=== PATIENT | female | born 1985 | race Caucasian/White ===

== ENCOUNTER 2020-03-11 17:27 | Inpatient (IN) ==
--- NOTE | 2020-03-11 17:45 | Emergency Department Note ---
Impression & Plan Abdominal pain, Enteritis, Hypophosphatemia ED Provider Note NAME: TIERA COLLINS AGE: 34 SEX: F : 1985 ARRIVES VIA: Walk-In INFORMANT: Patient, ED PROVIDER(S): Cleve De La Paz MD Chief Complaint: Diarrhea, abdominal pain HPI: Patient does present with the above complaints. The patient has had a his tory of PSC, UC as well as autoimmune spondyloarthritis. The patient recently did have an admission at [facility] due to concern for her persistent abdominal pain. The patient reportedly did have an MRCP completed and that was ruled out to be negative for PSC at that time. Patient did recently see her outpatient GI physician who started the patient on hyoscyamine as well as Bentyl. The patient states that this improved with a crampy pain but it does not improved her sharp pain. The patient does have sharp pain around the umbilicus as well as the left and right lower quadrants. The patient denies any urinary symptoms but the patient has had persistent large diarrhea bowel movements in the morning which do not continue but then the patient gets worsening pain in the evening throughout the night where it does disrupt her sleep. Patient has not tried taking any additional medication at nighttime. The patient has has had some mild nausea but no vomiting. LMP 4 weeks ago does have a NuvaRing. Patient denies any fevers or chills or shortness of breath or chest pains. ROS: See HPI for pertinent positives and negatives. A total of 10 systems were reviewed and otherwise negative. Past medical history: See below Surgical history: See below Social history: See below Physical Exam: GENERAL: Wearing a mask. NAD, non-toxic. EYE EXAM: Normal conjunctiva. PERRL, no anisocoria and EOM's grossly intact w/o pain. NECK: Supple, no nuchal rigidity, no adenopathy, non-tender. No signs of meningismus. LUNGS: Clear to auscultation. Normal chest wall mechanics. HEART: Tachycardic and regular, no MRG. ABDOMEN: Abdomen soft, epigastric, periumbilical right lower quadrant left lower quadrant pain, normo-active bowel sounds, no masses, no rebound or guarding. Negative obturator and psoas. BACK: No CVA TTP. SKIN: No rashes and no bruising. UPPER EXTREMITIES: Upper extremities are grossly normal. LOWER EXTREMITIES: Grossly normal, no edema. NEURO EXAM: A&O x3, cranial nerves II-XII grossly intact, normal speech, moves all 4 extremities on command w/o issue. Differential diagnoses: Appendicitis, ovarian cyst, ovarian torsion, ectopic , TOA, PID, infections, diverticulitis, UTI, obstruction, mesenteric ischemia, aortic pathology, inflammatory bowel disease, renal colic, PUD, pancreatitis, biliary pathology, hernia, volvulus, constipation, as well as other pathologies. Course: Patient was seen and evaluated the bedside. Full history physical exam was p erformed. EKG: Indication: Tachycardia Imaging Studies: Radiology results as stated below per my review in the radiologist's interpretation: CT abd pelvis IV con only CLINICAL HISTORY: Right lower quadrant and periumbilical pain. COMPARISON STUDY: None. TECHNIQUE: The patient was scanned in a dynamic helical fashion during intravenous administration of 93 cc of Optiray 320. A dose lowering technique was utilized adhering to the principles of ALARA. CT DOSE: 283.16 mGy.cm FINDINGS: Lower chest: There are mild basilar atelectatic changes. Liver: No focal hepatic masses are visualized. There is pneumobilia likely secondary to prior sphincterotomy. Gallbladder: Surgically absent Spleen: Normal in size and attenuation. Pancreas: Unremarkable. Adrenal glands: Unremarkable. Kidneys: There is symmetric renal cortical enhancement. The kidneys are normal in size without hydronephrosis. Bowel: There are mildly dilated small bowel loops demonstrating mild wall thickening. There are no definite transition zones. The findings are consistent with either an enteritis or early/partial small bowel obstruction. There are no current findings of a high-grade bowel obstruction. There is no evidence for acute diverticulitis. There is no evidence of acute appendicitis. Peritoneum: There is a small amount of free pelvic fluid. There is no free intraperitoneal air. Vasculature: The abdominal aorta is normal in course and caliber. Adenopathy: None. Pelvic viscera: The bladder, and pelvic viscera are unremarkable. There is an indwelling vaginal ring. Skeletal structures: There is a 15 mm sclerotic lesion within the left posterior acetabulum likely representing a bone island. There are additional scattered sclerotic skeletal lesions statistically representing additional bone islands. IMPRESSION: 1. Mildly dilated fluid-filled small bowel loops demonstrating wall thickening. A definite transition zone is not identified. The findings are consistent with either an enteritis or early/partial small bowel obstruction. Clinical and imaging follow-up is recommended. There is no current evidence of a high-grade bowel obstruction. 2. No evidence of acute appendicitis. No evidence of acute diverticulitis. 3. Scattered sclerotic skeletal lesions. In the absence of a known malignancies these likely represent bone islands. 4. Surgically absent gallbladder and pneumobilia ACT 112: Negative or not required by law. Electronically signed by: Missael Remy M.D. 03/11/2020 8:21 PM Dictated: 03/11/202015 Transcribed: 03/11/202015 Cardiac monitoring: An order was placed for continuous cardiac monitoring. The monitor shows a rate of 115 with sinus tachycardia rhythm. MDM: Patient CT shows some mildly dilated fluid-filled small loops of bowel no transition zone. Could be enteritis versus early SBO. Patient had mild white count of 14 but the patient is on chronic steroids. The patient's kidney function is unremarkable. Alk phos slightly elevated at 205. Phosphorus slightly low. Urinalysis positive bacteria and epithelial cells but negative for nitrites leukocytes and whites. Paresthesias negative. Given the patient's possible early SBO with her prior history believe the patient would benefit from pain control bowel rest and IV fluids. I did speak with the on-call hospitalist Dr. Acharya and the patient was admitted the medicine service. Patient is not had any vomiting. No obvious bowel obstruction do not believe the patient requires an NG tube at this time. Patient does present with concern for abdominal pain. Blood work was obtained the patient was given IV fluids and pain medication. Urinalysis was also obtained along with a CT of the abdomen pelvis. Past Med/Surg History Medical History Autoimmune disorder (Chronic) Primary sclerosing cholangitis Secondary Sjogren's syndrome Spondyloarthritis Thyroid cancer (Resolved) Ulcerative colitis Family History Other Family history non-contributory Social History Smoking Status: Never smoker Preferred Language: Afghan Feels Safe at Home: Yes Allergies Allergies Allergy/AdvReac Type Severity Reaction Status Date / Time acetaminophen Allergy Severe INTOLERANCE Verified 03/11/20 21:42 TO APAP amoxicillin Allergy Severe VOMIT Verified 03/11/20 21:42 doxycycline Allergy Severe DIARRHEA,UT Verified 03/11/20 21:42 I,VOMIT edetic acid Allergy Severe HEADACHES Verified 03/11/20 21:42 hydromorphone Allergy Severe MUSCLE Verified 03/11/20 21:42 SHAKE ibuprofen Allergy Severe Intolerance Verified 03/11/20 21:42 to NSAIDS rifaximin Allergy Severe HEADACHES Verified 03/11/20 21:42 Sulfa (Sulfonamide Allergy Severe SKIN BURN Verified 03/11/20 21:42 Antibiotics) risedronate sodium AdvReac Severe SHAKY/FEVER Verified 03/11/20 21:42 /VOMITING azithromycin AdvReac DIARRHEA, Verified 03/11/20 21:42 LIVER PAIN, HEADACHE leflunomide AdvReac VASCULITIS Verified 03/11/20 21:42 mesalamine [From Lialda] AdvReac MUSCLE Verified 03/11/20 21:42 SHAKES methotrexate AdvReac Vomiting Verified 03/11/20 21:42 mycophenolate mofetil AdvReac Watery Eye Verified 03/11/20 21:42 [From CellCept] ondansetron [From Zofran] AdvReac Headache Verified 03/11/20 21:42 FLOURORESIN AdvReac SKIN Uncoded 03/11/20 21:42 AROUND EYES CRACK HONEY COUGH SURUP AdvReac Joint Pain Uncoded 03/11/20 21:42 Home Meds Home Medications Medication Instructions Recorded Confirmed etonogestrel-ethinyl estradiol 1 ea VAGINAL DIRECTED 08/22/18 03/11/20 [NuvaRing] calcium carbonate [Calcium 500] 500 mg PO HS 10/23/19 03/11/20 celecoxib [Celebrex] 100 - 200 mg PO BID 10/23/19 03/11/20 fluoxetine [Prozac] 20 mg PO QAM 10/23/19 03/11/20 levothyroxine [Tirosint] 150 mcg PO QAM 10/23/19 03/11/20 omeprazole 20 mg PO QAM 10/23/19 03/11/20 cholecalciferol (vitamin D3) 3,000 unit PO DAILY 03/11/20 03/11/20 [Vitamin D3] dicyclomine 10 mg PO QID 03/11/20 03/11/20 ergocalciferol (vitamin D2) 50,000 unit PO .[id number] 03/11/20 03/11/20 [Vitamin D2] mesalamine [Apriso] 0.375 g PO QAM 03/11/20 03/11/20 prednisone 20 mg PO QAM 03/11/20 03/11/20 Results & Data (ED) Vital Signs Vital Signs - 24 hr 03/11/20 17:29 03/11/20 18:20 03/11/20 18:26 Temperature 37.3 C Temperature Source Oral Pulse Rate 122 H 92 H 94 H Pulse Rate [Apical] Pulse Rate from SpO2 Sensor 92 H 94 H Respiratory Rate 18 23 20 Respiratory Effort / Characteristics Respiratory Depth Blood Pressure 118/79 108/74 Blood Pressure [Right Arm] Blood Pressure Mean 92 87 Blood Pressure Mean [Right Arm] Pulse Oximetry 96 96 97 Oxygen Delivery Method Room Air Sepsis Recent Fever Within 48 Hours No Sepsis New/Unexplained Change in Mental Status No Sepsis Action Taken by Nursing No Action Required 03/11/20 18:30 03/11/20 19:00 03/11/20 19:30 Temperature Temperature Source Pulse Rate 93 H 89 87 Pulse Rate [Apical] Pulse Rate from SpO2 Sensor 93 H 90 Respiratory Rate 23 21 21 Respiratory Effort / Characteristics Respiratory Depth Blood Pressure 113/73 105/72 104/80 Blood Pressure [Right Arm] Blood Pressure Mean 91 78 84 Blood Pressure Mean [Right Arm] Pulse Oximetry 97 98 Oxygen Delivery Method Sepsis Recent Fever Within 48 Hours Sepsis New/Unexplained Change in Mental Status Sepsis Action Taken by Nursing 03/11/20 20:00 03/11/20 20:30 03/11/20 20:32 Temperature Temperature Source Pulse Rate 92 H 85 82 Pulse Rate [Apical] 86 Pulse Rate from SpO2 Sensor 91 H 84 82 Respiratory Rate 20 21 20 Respiratory Effort / Characteristics Non-Labored Respiratory Depth Normal Blood Pressure 117/73 103/78 Blood Pressure [Right Arm] 117/73 Blood Pressure Mean 82 81 Blood Pressure Mean [Right Arm] 87 Pulse Oximetry 100 98 97 Oxygen Delivery Method Room Air Sepsis Recent Fever Within 48 Hours Sepsis New/Unexplained Change in Mental Status Sepsis Action Taken by Nursing 03/11/20 21:01 03/11/20 21:03 03/11/20 21:31 Temperature Temperature Source Pulse Rate 84 89 88 Pulse Rate [Apical] Pulse Rate from SpO2 Sensor 83 89 Respiratory Rate 18 16 24 Respiratory Effort / Characteristics Respiratory Depth Blood Pressure 117/81 Blood Pressure [Right Arm] Blood Pressure Mean 84 Blood Pressure Mean [Right Arm] Pulse Oximetry 97 99 Oxygen Delivery Method Sepsis Recent Fever Within 48 Hours Sepsis New/Unexplained Change in Mental Status Sepsis Action Taken by Nursing 03/11/20 21:32 03/11/20 21:59 03/11/20 23:17 Temperature Temperature Source Pulse Rate 95 H Pulse Rate [Apical] 88 Pulse Rate from SpO2 Sensor Respiratory Rate 20 18 Respiratory Effort / Characteristics Respiratory Depth Blood Pressure Blood Pressure [Right Arm] 105/71 105/80 Blood Pressure Mean Blood Pressure Mean [Right Arm] 82 88 Pulse Oximetry 98 Oxygen Delivery Method Room Air Sepsis Recent Fever Within 48 Hours Sepsis New/Unexplained Change in Mental Status Sepsis Action Taken by Snf Medications Current Medication List: was personally reviewed by me Laboratory Data Attestation: I reviewed the patient's lab results. Result diagrams: 03/11/20 18:03 03/11/20 18:03 Lab Results 03/11/20 03/11/20 03/11/20 Range/Units 18:03 18:03 18:03 WBC 14.86 H (4.8-10.8) K/uL RBC 4.26 (4.2-5.4) M/uL Hgb 12.9 (12.0-16.0) g/dL Hct 37.7 (37-47) % MCV 88.5 (80-100) fL MCH 30.3 (25-34) pg MCHC 34.2 (32-36) g/dL RDW Std Deviation 39.9 (36.4-46.3) fL RDW Coeff of Chaim 12.4 (11.5-14.5) % Plt Count 399 (130-400) K/uL MPV 9.1 (7.4-10.4) fL Immature Gran % (Auto) 0.4 % Neut % (Auto) 92.3 % Lymph % (Auto) 5.5 % Aiken % (Auto) 1.6 % Eos % (Auto) 0.1 % Baso % (Auto) 0.1 % Neut # (Auto) 13.72 H (1.4-6.5) K/uL Lymph # (Auto) 0.82 L (1.2-3.4) K/uL Aiken # (Auto) 0.24 (0.11-0.59) K/uL Eos # (Auto) 0.01 (0-0.5) K/uL Baso # (Auto) 0.01 (0-0.2) K/uL Immature Gran # (Auto) 0.06 H (0.00-0.02) K/uL Sodium 137 (136-145) mmol/L Potassium 3.9 (3.5-5.1) mmol/L Chloride 108 H (98-107) mmol/L Carbon Dioxide 21 (21-32) mmol/L Anion Gap 8.0 (3-11) BUN 8 (7-18) mg/dl Creatinine 1.11 (0.6-1.2) mg/dl Est Cr Clr Drug Dosing 66.5 ml/min Est GFR ( Amer) 74.0 Est GFR (Non-Af Amer) 63.8 BUN/Creatinine Ratio 7.6 L (10-20) Glucose 151 H (70-99) mg/dl Calcium 9.0 (8.5-10.1) mg/dl Phosphorus 2.3 L (2.5-4.9) mg/dl Magnesium 1.9 (1.8-2.4) mg/dl Total Bilirubin 0.3 (0.2-1) mg/dl AST 15 (15-37) U/L ALT 34 (12-78) U/L Alkaline Phosphatase 205 H (45-117) U/L Total Protein 7.2 (6.4-8.2) gm/dl Albumin 2.9 L (3.4-5.0) gm/dl Globulin 4.3 H (2.5-4.0) gm/dl Albumin/Globulin Ratio 0.7 L (0.9-2) Lipase 122 (73-393) U/L Urine Color Yellow Urine Appearance Clear (Clear) Urine pH 7.0 (4.5-7.5) Ur Specific [place] 1.004 (1.000-1.030) Urine Protein Negative (Negative) Urine Glucose (UA) Negative (Negative) Urine Ketones Negative (Negative) Urine Blood 1+ H (Negative) Urine Nitrite Negative (Negative) Urine Bilirubin Negative (Negative) Urine Urobilinogen Negative (Negative) Ur Leukocyte Esterase Negative (Negative) Urine WBC (Auto) 1-5 (0-5) /hpf Urine RBC (Auto) 5-10 H (0-4) /hpf U Hyaline Cast (Auto) 0 (0-5) /lpf U Epithel Cells (Auto) 5-10 H (0-5) /lpf Urine Bacteria (Auto) 1+ H (Negative) Urine Test (Negative) 03/11/20 Range/Units 18:03 WBC (4.8-10.8) K/uL RBC (4.2-5.4) M/uL Hgb (12.0-16.0) g/dL Hct (37-47) % MCV (80-100) fL MCH (25-34) pg MCHC (32-36) g/dL RDW Std Deviation (36.4-46.3) fL RDW Coeff of Chaim (11.5-14.5) % Plt Count (130-400) K/uL MPV (7.4-10.4) fL Immature Gran % (Auto) % Neut % (Auto) % Lymph % (Auto) % Aiken % (Auto) % Eos % (Auto) % Baso % (Auto) % Neut # (Auto) (1.4-6.5) K/uL Lymph # (Auto) (1.2-3.4) K/uL Aiken # (Auto) (0.11-0.59) K/uL Eos # (Auto) (0-0.5) K/uL Baso # (Auto) (0-0.2) K/uL Immature Gran # (Auto) (0.00-0.02) K/uL Sodium (136-145) mmol/L Potassium (3.5-5.1) mmol/L Chloride (98-107) mmol/L Carbon Dioxide (21-32) mmol/L Anion Gap (3-11) BUN (7-18) mg/dl Creatinine (0.6-1.2) mg/dl Est Cr Clr Drug Dosing ml/min Est GFR ( Amer) Est GFR (Non-Af Amer) BUN/Creatinine Ratio (10-20) Glucose (70-99) mg/dl Calcium (8.5-10.1) mg/dl Phosphorus (2.5-4.9) mg/dl Magnesium (1.8-2.4) mg/dl Total Bilirubin (0.2-1) mg/dl AST (15-37) U/L ALT (12-78) U/L Alkaline Phosphatase (45-117) U/L Total Protein (6.4-8.2) gm/dl Albumin (3.4-5.0) gm/dl Globulin (2.5-4.0) gm/dl Albumin/Globulin Ratio (0.9-2) Lipase (73-393) U/L Urine Color Urine Appearance (Clear) Urine pH (4.5-7.5) Ur Specific [place] (1.000-1.030) Urine Protein (Negative) Urine Glucose (UA) (Negative) Urine Ketones (Negative) Urine Blood (Negative) Urine Nitrite (Negative) Urine Bilirubin (Negative) Urine Urobilinogen (Negative) Ur Leukocyte Esterase (Negative) Urine WBC (Auto) (0-5) /hpf Urine RBC (Auto) (0-4) /hpf U Hyaline Cast (Auto) (0-5) /lpf U Epithel Cells (Auto) (0-5) /lpf Urine Bacteria (Auto) (Negative) Urine Test Negative (Negative) Administered Medications Sodium Chloride (Nss) 500 mls @ 125 mls/hr IV .Q4H MITRA Stop: 04/10/20 21:14 Last Admin: 03/11/20 21:29 Dose: 125 mls/hr Documented by: [id number] Morphine Sulfate (Morphine Sulfate) 4 mg IV Q1H PRN PRN Reason: pain Stop: 03/25/20 17:54 Last Admin: 03/11/20 22:08 Dose: 4 mg Documented by: [id number] Admin: 03/11/20 19:58 Dose: 4 mg Documented by: [id number] Admin: 03/11/20 18:18 Dose: 4 mg Documented by: [id number] Discontinued Medications Sodium Chloride (Nss 1000ml) 2,000 mls @ 999 mls/hr IV .Q2H1M ONE Stop: 03/11/20 19:55 Last Infusion: 03/11/20 20:25 Dose: 0 mls/hr Documented by: [id number] Admin: 03/11/20 18:18 Dose: 999 mls/hr Documented by: [id number] Ioversol (Optiray 320 100ml) 93 ml IV ONCE ONE Stop: 03/11/20 19:46 Last Admin: 03/11/20 19:46 Dose: 93 ml Documented by: [id number] Discharge Plan Visit Data Chief Complaint: Diarrhea Stated Complaint: DIARRHEA ED Provider: Cleve De La Paz Discharge Problem: Abdominal pain, Enteritis, Hypophosphatemia Forms Stand Alone Forms: Jannie Tus reQRdos Prescriptions Prescriptions: No Action etonogestrel-ethinyl estradiol [NuvaRing] 0.12-0.015 mg/24 hr ring 1 ea Vaginal DIRECTED RF: 0 omeprazole 20 mg capsule,delayed release(DR/EC) 20 mg PO QAM RF: 0 Tirosint 150 mcg capsule 150 mcg PO QAM RF: 0 calcium carbonate [Calcium 500] 500 mg calcium (1,250 mg) Tablet 500 mg PO HS RF: 0 celecoxib [Celebrex] 100 mg capsule 100 - 200 mg PO BID RF: 0 fluoxetine [Prozac] 20 mg capsule 20 mg PO QAM RF: 0 prednisone 20 mg tablet 20 mg PO QAM RF: 0 ergocalciferol (vitamin D2) [Vitamin D2] 1,250 mcg (50,000 unit) capsule 50,000 unit PO .[id number] RF: 0 dicyclomine 10 mg capsule 10 mg PO QID RF: 0 cholecalciferol (vitamin D3) [Vitamin D3] 25 mcg (1,000 unit) Capsule 3,000 unit PO DAILY RF: 0 mesalamine [Apriso] 0.375 gram capsule,extended release 24hr 0.375 g PO QAM RF: 0 Discharge Problem: Abdominal pain Qualifiers: Abdominal location: periumbilical Qualified Code(s): R10.33 - Periumbilical pain
[2020-03-11] MEDS ORDERED: SODIUM CHLORIDE 0.9% 1000ML 2,000 ML IV ONE (17:55)
[2020-03-11 18:18] LABS: Basophils # (auto) 0.01 K/uL (0-0.2); Basophils % (auto) 0.1 %; Eosinophils # (auto) 0.01 K/uL (0-0.5); Eosinophils % (auto) 0.1 %; Hematocrit (blood only) 37.7 % (37-47); Hemoglobin 12.9 g/dL (12.0-16.0); Immature Granulocytes # (auto) 0.06 K/uL (0.00-0.02); Immature Granulocytes % (auto) 0.4 %; Lymphocytes # (auto) 0.82 K/uL (1.2-3.4); Lymphocytes % (auto) 5.5 %; Mean Corpuscular Hemoglobin 30.3 pg (25-34); Mean Corpuscular Hgb Conc 34.2 g/dL (32-36); Mean Corpuscular Volume 88.5 fL (80-100); Mean Platelet Volume 9.1 fL (7.4-10.4); Monocytes # (auto) 0.24 K/uL (0.11-0.59); Monocytes % (auto) 1.6 %; Neutrophils # (auto) 13.72 K/uL (1.4-6.5); Neutrophils % (auto) 92.3 %; Platelet Count 399 K/uL (130-400); RDW Coefficient of Variation 12.4 % (11.5-14.5); RDW Standard Deviation 39.9 fL (36.4-46.3); Red Blood Count 4.26 M/uL (4.2-5.4); White Blood Count 14.86 K/uL (4.8-10.8)
[2020-03-11] MEDS: MoRPHine SULFATE 4 MG/ML 1 ML CARP\\VIAL IV PRN ×4 (18:18→23:51)
[2020-03-11 18:35] LABS: Albumin Level 2.9 gm/dl (3.4-5.0); BUN Creatinine Ratio 7.6 (10-20); Creatinine Clr Calc Pharmacy 66.5 ml/min; Est GFR (Non-African American) 63.8; Magnesium 1.9 mg/dl (1.8-2.4); Potassium 3.9 mmol/L (3.5-5.1)
[2020-03-11 18:38] LABS: Albumin Globulin Ratio 0.7 (0.9-2); Bilirubin,Total 0.3 mg/dl (0.2-1); Globulin 4.3 gm/dl (2.5-4.0); Phosphorus 2.3 mg/dl (2.5-4.9); Total Protein 7.2 gm/dl (6.4-8.2)
[2020-03-11 18:54] LABS: Appearance Urine Clear (Clear); Bilirubin Urine Negative (Negative); Blood Urine 1+ (Negative); Color Urine Yellow; Glucose Urine UA Negative (Negative); Ketones Urine Negative (Negative); Leukocyte Esterase Urine Negative (Negative); Nitrite Urine Negative (Negative); Pregnancy Test, Urine Negative (Negative); Protein Urine Negative (Negative); Specific Gravity Urine 1.004 (1.000-1.030); Urobilinogen Urine Negative (Negative)
[2020-03-11 19:21] LABS: Bacteria Urine Automated 1+ (Negative); Cast Urine Automated 0 /lpf (0-5)
[2020-03-11] MEDS ORDERED: IOVERSOL 100ml IV ONE (19:45)
--- NOTE | 2020-03-11 20:22 | CT Scan Report ---
CT abd pelvis IV con only CLINICAL HISTORY: Right lower quadrant and periumbilical pain. COMPARISON STUDY: None. TECHNIQUE: The patient was scanned in a dynamic helical fashion during intravenous administration of 93 cc of Optiray 320. A dose lowering technique was utilized adhering to the principles of ALARA. CT DOSE: 283.16 mGy.cm FINDINGS: Lower chest: There are mild basilar atelectatic changes. Liver: No focal hepatic masses are visualized. There is pneumobilia likely secondary to prior sphinct erotomy. Gallbladder: Surgically absent Spleen: Normal in size and attenuation. Pancreas: Unremarkable. Adrenal glands: Unremarkable. Kidneys: There is symmetric renal cortical enhancement. The kidneys are normal in size without hydron ephrosis. Bowel: There are mildly dilated small bowel loops demonstrating mild wall thickening. There are no de finite transition zones. The findings are consistent with either an enteritis or early/partial small bowel obstruction. There are no current findings of a high-grade bowel obstruction. There is no evide nce for acute diverticulitis. There is no evidence of acute appendicitis. Peritoneum: There is a small amount of free pelvic fluid. There is no free intraperitoneal air. Vasculature: The abdominal aorta is normal in course and caliber. Adenopathy: None. Pelvic viscera: The bladder, and pelvic viscera are unremarkable. There is an indwelling vaginal ring . Skeletal structures: There is a 15 mm sclerotic lesion within the left posterior acetabulum likely re presenting a bone island. There are additional scattered sclerotic skeletal lesions statistically rep resenting additional bone islands. IMPRESSION: 1. Mildly dilated fluid-filled small bowel loops demonstrating wall thickening. A definite transition zone is not identified. The findings are consistent with either an enteritis or early/partial small bowel obstruction. Clinical and imaging follow-up is recommended. There is no current evidence of a h igh-grade bowel obstruction. 2. No evidence of acute appendicitis. No evidence of acute diverticulitis. 3. Scattered sclerotic skeletal lesions. In the absence of a known malignancies these likely represen t bone islands. 4. Surgically absent gallbladder and pneumobilia ACT 112: Negative or not required by law. Electronically signed by: Missael Remy M.D. 03/11/2020 8:21 PM
[2020-03-11] MEDS: SODIUM CHLORIDE 0.9% 500 ML IV SCH (21:29)
--- NOTE | 2020-03-11 23:30 | History & Physical Report ---
Date of Service March 11, 2020 Assessment & Plan (1) Abdominal pain: 34-year-old female with past medical history primary sclerosing cholangitis, ulcerative colitis, autoimmune spondylarthritis, secondary Sjogren's syndrome presents with concerns of ongoing abdominal pain found to have possible enteritis versus SBO on CT abdomen pelvis. Enteritis/SBO Admit to [facility] Abdomen pelvis CT with IV contrast: Mildly dilated fluid-filled small bowel loops demonstrating wall thickening. A definite transition zone is not identified. The findings are consistent with either an enteritis or early/partial small bowel obstruction. There is no current evidence of a high- grade bowel obstruction. No evidence of acute appendicitis. No evidence of acute diverticulitis We will make patient n.p.o. Defer on NG tube at present, continue to monitor clinical course IVF NSS@125 ml/hr x2 L Electrolyte repletion as needed Cautious use of narcotics for pain control Zofran PRN nausea Patient does not follow with a GI locally. Will consult GI while inpatient so that this process may begin. Spondylarthritis Follows with assistant portfolio manager at [facility] Patient reportedly began Cosentyx injections beginning in December 13, 2019, last injection February 07, 2020. It is believed that this may be contributing to patient's current symptoms. She states that she will be starting Xeljanz, but this is in the prior authorization stage. Was previously on Stelara, but this was stopped in November 10, 2019 Holding Celebrex Holding p.o. prednisone 20 mg. Will start IV methylprednisone 40 mg every 8 hour Ulcerative colitis Follows with GI at [facility] Continue mesalamine 0.375 g daily, dicyclomine 10 mg 4 times daily As above, holding p.o. prednisone 20 mg. Will start IV methylprednisone 40 mg every 8 hour Secondary Sjogren's syndrome Continue artificial eyedrops eyedrops twice daily. Pt to bring own Xiidra eye drops in FEN/GI: NSS@125. N.p.o. DVT prophylaxis: Low risk per admission Calc. Ambulation Full code Dispo: Med telemetry History of Present Illness Chief Complaint: Abdominal pain Primary Care Provider: Brenda Paredes MD 34-year-old female with past medical history primary sclerosing cholangitis, ulcerative colitis, autoimmune spondylarthritis, secondary Sjogren's syndrome presents with concerns of ongoing abdominal pain. Patient notes that this worsened around mid February. Patient recently started Cosentyx injections beginning of December and since then has had abdominal pain, diarrhea. Abdominal pain is periumbilical and both LLQ/RUQ, described as sharp, nonradiating. Exacerbated by any food, water, medication intake. Alleviated by bowel rest. Patient follows with a GI at [facility] and was recently admitted there for this. Notes during admission there her symptoms were relieved while receiving IV fluids and IV pain medications. The patient reportedly did have an MRCP completed and that was ruled out to be negative for PSC at that time. Her outpatient GI physician recently started her on Bentyl and p.o. prednisone 20 mg, which is increased from 5 mg she was taking. Associated diarrhea and is worse in evenings, nausea, decreased appetite. Patient otherwise denies any fevers, chills vomiting, chest pain, shortness of breath, lightheadedness, dizziness, urinary symptoms, ingestion of suspicious foods, no sick contacts or recent travel anywhere other than [place]. Patient with no other acute concerns or complaints. Pertinent labs: WBC 14.6, glucose 151, Brooke 2.3, alk phos 205, albumin 2.9. Otherwise unremarkable Abdomen pelvis CT with IV contrast: Mildly dilated fluid-filled small bowel l oops demonstrating wall thickening. A definite transition zone is not identified. The findings are consistent with either an enteritis or early/partial small bowel obstruction. There is no current evidence of a high- grade bowel obstruction. No evidence of acute appendicitis. No evidence of acute diverticulitis. ER course: IV morphine 4 mg, NSS 2 L Surgical history: Cholecystectomy 2011 with follow-up sphincterectomy soon thereafter. No other abdominal surgeries Social history: Patient denies any tobacco, alcohol, illicit drug use Allergies Allergy/AdvReac Type Severity Reaction Status Date / Time acetaminophen Allergy Severe INTOLERANCE Verified 03/11/20 21:42 TO APAP amoxicillin Allergy Severe VOMIT Verified 03/11/20 21:42 doxycycline Allergy Severe DIARRHEA,UT Verified 03/11/20 21:42 I,VOMIT edetic acid Allergy Severe HEADACHES Verified 03/11/20 21:42 hydromorphone Allergy Severe MUSCLE Verified 03/11/20 21:42 SHAKE ibuprofen Allergy Severe Intolerance Verified 03/11/20 21:42 to NSAIDS rifaximin Allergy Severe HEADACHES Verified 03/11/20 21:42 Sulfa (Sulfonamide Allergy Severe SKIN BURN Verified 03/11/20 21:42 Antibiotics) risedronate sodium AdvReac Severe SHAKY/FEVER Verified 03/11/20 21:42 /VOMITING azithromycin AdvReac DIARRHEA, Verified 03/11/20 21:42 LIVER PAIN, HEADACHE leflunomide AdvReac VASCULITIS Verified 03/11/20 21:42 mesalamine [From Lialda] AdvReac MUSCLE Verified 03/11/20 21:42 SHAKES methotrexate AdvReac Vomiting Verified 03/11/20 21:42 mycophenolate mofetil AdvReac Watery Eye Verified 03/11/20 21:42 [From CellCept] ondansetron [From Zofran] AdvReac Headache Verified 03/11/20 21:42 FLOURORESIN AdvReac SKIN Uncoded 03/11/20 21:42 AROUND EYES CRACK HONEY COUGH SURUP AdvReac Joint Pain Uncoded 03/11/20 21:42 Home Medications Home Medications Medication Instructions Recorded Confirmed Type etonogestrel-ethinyl estradiol 1 ea VAGINAL DIRECTED 08/22/18 03/11/20 History [NuvaRing] calcium carbonate [Calcium 500] 500 mg PO HS 10/23/19 03/11/20 History celecoxib [Celebrex] 100 - 200 mg PO BID 10/23/19 03/11/20 History fluoxetine [Prozac] 20 mg PO QAM 10/23/19 03/11/20 History levothyroxine [Tirosint] 150 mcg PO QAM 10/23/19 03/11/20 History omeprazole 20 mg PO QAM 10/23/19 03/11/20 History cholecalciferol (vitamin D3) 3,000 unit PO DAILY 03/11/20 03/11/20 History [Vitamin D3] dicyclomine 10 mg PO QID 03/11/20 03/11/20 History ergocalciferol (vitamin D2) 50,000 unit PO .[id number] 03/11/20 03/11/20 History [Vitamin D2] mesalamine [Apriso] 0.375 g PO QAM 03/11/20 03/11/20 History prednisone 20 mg PO QAM 03/11/20 03/11/20 History Past Med/Surg History Medical History Autoimmune disorder (Chronic) Primary sclerosing cholangitis Secondary Sjogren's syndrome Spondyloarthritis Thyroid cancer (Resolved) Ulcerative colitis Family History Other Family history non-contributory Social History Smoking Status: Former smoker Second Hand Exposure: No; Do You Dip or Chew Tobacco: No; Tobacco Cessation Education Requested by Patient: No Hx Substance Use: No Preferred Language: Greenlandic Communication Ability: Effective Cylinder Worker Required: No Beliefs That Will Affect Care: None Current Living Situation: Alone Other Information That Helps Us Care for You: No Feels Safe at Home: Yes Safety Concerns: Feels Safe At This Time Review of Systems Review of Systems: All systems reviewed & are unremarkable except as noted in HPI & below Physical Exam Constitutional: WD/WN, vitals as above Eyes: PERRL, conjunctivae normal, anicteric sclerae ENMT: external ear and nose normal, oropharynx normal Respiratory: normal respiratory effort, lungs clear to auscultation Cardiovascular: RRR, no murmur, no edema Gastrointestinal (Abdomen): Percussion/Palpation: + abdomen tender (Mild TTP periumbilical, LLQ/RLQ) and abdomen soft; no guarding Skin: no rashes, warm and dry Psychiatric: A+Ox3, euthymic affect Results & Data Results & Data ([facility]) Vital Signs (Past 12 Hours) Vital Signs Temp Pulse Pulse Resp BP BP Pulse Ox 03/11/20 23:17 88 18 105/80 98 03/11/20 21:59 105/71 03/11/20 21:32 95 H 20 03/11/20 21:31 88 24 03/11/20 21:03 89 16 117/81 99 03/11/20 21:01 84 18 97 03/11/20 20:32 82 20 97 03/11/20 20:30 85 21 103/78 98 03/11/20 20:00 92 H 86 20 117/73 117/73 100 03/11/20 19:30 87 21 104/80 03/11/20 19:00 89 21 105/72 98 03/11/20 18:30 93 H 23 113/73 97 03/11/20 18:26 94 H 20 97 03/11/20 18:20 92 H 23 108/74 96 03/11/20 17:29 37.3 C 122 H 18 118/79 96 Laboratory Results Laboratory Results - last 24 hr 03/11/20 03/11/20 03/11/20 18:03 18:03 18:03 WBC 14.86 H RBC 4.26 Hgb 12.9 Hct 37.7 MCV 88.5 MCH 30.3 MCHC 34.2 RDW Std Deviation 39.9 RDW Coeff of Chaim 12.4 Plt Count 399 MPV 9.1 Immature Gran % (Auto) 0.4 Neut % (Auto) 92.3 Lymph % (Auto) 5.5 [place] % (Auto) 1.6 Eos % (Auto) 0.1 Baso % (Auto) 0.1 Neut # (Auto) 13.72 H Lymph # (Auto) 0.82 L [place] # (Auto) 0.24 Eos # (Auto) 0.01 Baso # (Auto) 0.01 Immature Gran # (Auto) 0.06 H Sodium 137 Potassium 3.9 Chloride 108 H Carbon Dioxide 21 Anion Gap 8.0 BUN 8 Creatinine 1.11 Est Cr Clr Drug Dosing 66.5 Est GFR ( Amer) 74.0 Est GFR (Non-Af Amer) 63.8 BUN/Creatinine Ratio 7.6 L Glucose 151 H Calcium 9.0 Phosphorus 2.3 L Magnesium 1.9 Total Bilirubin 0.3 AST 15 ALT 34 Alkaline Phosphatase 205 H Total Protein 7.2 Albumin 2.9 L Globulin 4.3 H Albumin/Globulin Ratio 0.7 L Lipase 122 Urine Color Yellow Urine Appearance Clear Urine pH 7.0 Ur Specific [place] 1.004 Urine Protein Negative Urine Glucose (UA) Negative Urine Ketones Negative Urine Blood 1+ H Urine Nitrite Negative Urine Bilirubin Negative Urine Urobilinogen Negative Ur Leukocyte Esterase Negative Urine WBC (Auto) 1-5 Urine RBC (Auto) 5-10 H U Hyaline Cast (Auto) 0 U Epithel Cells (Auto) 5-10 H Urine Bacteria (Auto) 1+ H Urine Test 03/11/20 18:03 WBC RBC Hgb Hct MCV MCH MCHC RDW Std Deviation RDW Coeff of Chaim Plt Count MPV Immature Gran % (Auto) Neut % (Auto) Lymph % (Auto) [place] % (Auto) Eos % (Auto) Baso % (Auto) Neut # (Auto) Lymph # (Auto) [place] # (Auto) Eos # (Auto) Baso # (Auto) Immature Gran # (Auto) Sodium Potassium Chloride Carbon Dioxide Anion Gap BUN Creatinine Est Cr Clr Drug Dosing Est GFR ( Amer) Est GFR (Non-Af Amer) BUN/Creatinine Ratio Glucose Calcium Phosphorus Magnesium Total Bilirubin AST ALT Alkaline Phosphatase Total Protein Albumin Globulin Albumin/Globulin Ratio Lipase Urine Color Urine Appearance Urine pH Ur Specific [place] Urine Protein Urine Glucose (UA) Urine Ketones Urine Blood Urine Nitrite Urine Bilirubin Urine Urobilinogen Ur Leukocyte Esterase Urine WBC (Auto) Urine RBC (Auto) U Hyaline Cast (Auto) U Epithel Cells (Auto) Urine Bacteria (Auto) Urine Test Negative Medications Administered Current Inpatient Medications Sodium Chloride (Nss) 500 mls @ 125 mls/hr IV .Q4H MITRA Stop: 04/10/20 21:14 Last Admin: 03/11/20 21:29 Dose: 125 mls/hr Documented by: Morphine Sulfate (Morphine Sulfate) 4 mg IV Q1H PRN PRN Reason: pain Stop: 03/25/20 17:54 Last Admin: 03/11/20 22:08 Dose: 4 mg Documented by: Code Status & VTE Plan Code Status Full Supervising Physician Co-Signing Physician Notes Attending addendum: I have physically seen this patient, have supervised the medical residents activities, and agree with the H&P unless as otherwise noted. Assessment and Plan: Small bowel enteritis/possible early P SBO/ulcerative colitis flare- Admit to [facility] NPO NSS and 25 mils per hour Hold p.o. prednisone Zofran 4 mg IV every 6 hours PRN Solu-Medrol IV 40 mg IV every 8 hours Holding on Cipro and Flagyl for now. Continue mesalamine and dicyclomine Stool cultures and C. difficile Remaining orders and notations as noted Resident Activity Tracking Resident Involvement: Resident Care Provided Care Provided: Adult Hospital Medicine (1) Abdominal pain Abdominal location: periumbilical Qualified Code(s): R10.33 - Periumbilical pain
[2020-03-12] MEDS ORDERED: POTASSIUM PHOS 3 MMOL/1 ML INFUSION IV STA (01:17)
[2020-03-12] MEDS ORDERED: MAGNESIUM HYDROXIDE SUSP 30 ML UDC PO PRN (01:17)
[2020-03-12] MEDS ORDERED: ONDANSETRON INJ 2 MG/ML 2 ML VIAL IV PRN (01:17)
[2020-03-12] MEDS ORDERED: methylPREDNISolone 40 MG in DEXTROSE 5% 250 ML IV SCH (01:17)
[2020-03-12] MEDS ORDERED: LOPERAMIDE HCL 2 MG CAP PO PRN (01:17)
[2020-03-12] MEDS ORDERED: POTASSIUM PHOSPHATE 21 MMOL in SODIUM CHLORIDE 0.9% 500 ML IV ONE (01:45)
[2020-03-12] MEDS: SODIUM CHLORIDE 0.9% 1000ML 1,000 ML IV SCH ×2 (01:56→09:57)
[2020-03-12] MEDS: MoRPHine SULFATE 2 MG/ML CARP IV PRN ×3 (01:57→16:14)
[2020-03-12] MEDS: SODIUM CHLORIDE 0.9% 500 ML IV SCH (02:04)
[2020-03-12] MEDS ORDERED: DICYCLOMINE HCL 10 MG CAP PO ONE (02:09)
[2020-03-12] MEDS: ARTIFICIAL TEARS OP OINT 3.5 GM TUBE OP SCH ×3 (02:24→20:23)
[2020-03-12] MEDS: methylPREDNISolone 40 MG in SYRINGE 0 ML IV SCH ×3 (02:25→17:00)
[2020-03-12 05:59] LABS: Basophils # (auto) 0.03 K/uL (0-0.2); Basophils % (auto) 0.2 %; Eosinophils # (auto) 0.23 K/uL (0-0.5); Eosinophils % (auto) 1.5 %; Hematocrit (blood only) 33.1 % (37-47); Hemoglobin 11.1 g/dL (12.0-16.0); Immature Granulocytes # (auto) 0.07 K/uL (0.00-0.02); Immature Granulocytes % (auto) 0.5 %; Lymphocytes # (auto) 2.52 K/uL (1.2-3.4); Lymphocytes % (auto) 16.6 %; Mean Corpuscular Hgb Conc 33.5 g/dL (32-36); Mean Corpuscular Volume 89.5 fL (80-100); Mean Platelet Volume 8.8 fL (7.4-10.4); Monocytes # (auto) 0.88 K/uL (0.11-0.59); Monocytes % (auto) 5.8 %; Neutrophils # (auto) 11.48 K/uL (1.4-6.5); Neutrophils % (auto) 75.4 %; Platelet Count 321 K/uL (130-400); RDW Coefficient of Variation 12.6 % (11.5-14.5); RDW Standard Deviation 40.6 fL (36.4-46.3); White Blood Count 15.21 K/uL (4.8-10.8)
[2020-03-12 06:25] LABS: BUN Creatinine Ratio 7.6 (10-20); Calcium 7.5 mg/dl (8.5-10.1); Est GFR (African American) 134.5; Potassium 3.9 mmol/L (3.5-5.1)
[2020-03-12] MEDS ORDERED: PANTOprazole 40 MG TAB PO SCH (09:00)
[2020-03-12] MEDS: FLUOXETINE HCL 20 MG CAP PO SCH (09:11)
[2020-03-12] MEDS: CHOLECALCIFEROL 1,000 UNITS 25 MCG TAB PO SCH (09:11)
[2020-03-12] MEDS: DICYCLOMINE HCL 10 MG CAP PO SCH ×4 (09:12→20:22)
[2020-03-12] MEDS: LEVOTHYROXINE SODIUM 150 MCG TABLET PO SCH (11:18)
--- NOTE | 2020-03-12 14:02 | Gastrointestinal Consultation ---
Date of Consultation March 12, 2020 Assessment & Plan (1) Ulcerative colitis: -Continue IV Solumedrol at present; Will eventually need to taper dosage and transition to po therapy. Will add Calcium & Vitamin D supplement while on high dose corticosteroids. -Clear liquid diet today. -NPO after midnight with exception of bowel prep; Colonoscopy on 03/13/2020 for further assessment of disease. -Will need significant outpatient follow-up with her GI at [facility]--she reports she is soon to begin Xeljanz but is waiting on the medication to be authorized by insurance company. -Previous CT suggestive of small bowel abnormalities and imaging follow-up was recommended; Pending colonoscopy results, consider CT enterography for further evaluation. -Check CRP & C diff studies. -Supportive care per primary team. Thank you for allowing us to participate in the care of this patient. If you should have any further questions or concerns, do not hesitate to contact us. Supervising Physician Co-Signing Physician Notes I personally evaluated the patient and agree with the findings as documented by Elena Amanda, PAC Exam: abd: soft, nt, nd colonoscopy tomorrow to further evaluate/assess disease severity History of Present Illness Reason for Consultation: UC Attending Physician: Adryan Shin MD History of Present Illness Santo is a 34-year-old female with past medical history primary sclerosing cholangitis, ulcerative colitis, autoimmune spondylarthritis, secondary Sjogren's syndrome presents with concerns of ongoing abdominal pain. Patient notes that this worsened around mid February, but states that since Tuesday 03/06, it became intolerable. She reports 20/10 abdominal pain and notes that she is not sleeping. She reports she tried to avoid hospitalization, however she could not ignore the pain anymore. She reports nocturnal diarrhea. She has a complicated history of IBD & autoimmune issues and receives her care at [facility]. She recently started Cosentyx injections beginning of December and since then has had abdominal pain, diarrhea. Abdominal pain is periumbilical and both LLQ/RUQ, described as sharp, nonradiating. Her pain is worsened with food. During a recent admission at [facility], her symptoms were relieved while receiving IV fluids and IV pain medications. The patient reportedly did have an MRCP completed and that was ruled out to be negative for PSC at that time. She is taking Bentyl and low-dose Prednisone as an outpatient. Patient otherwise denies any fevers, chills vomiting, chest pain, shortness of breath, lightheadedness, dizziness. She notes that since admission, she is already feeling much better. She is currently awaiting a switch to Xeljanz, but in the past has been on other biologics, though I don't have a list of those available at the time of my visit. She is noted to have an H/H of 11.1/33.1. On admission her WBC count was 14.6. K is within normal limits. LFTs unremarkable with the exception of a mildly elevated Alk phos. She had a CT scan of the abdomen/pelvis with only IV contrast in the ED that indicated findings concerning for an enteritis or early SBO. When I discussed with the patient whether she has had disease activity in her small bowel in the past, she notes that at one point there was concern that she may actually have Crohn's Disease. However she reports she underwent a VCE that was reportedly unremarkable as well as genetic testing that appeared to be a pattern consistent with UC, not Crohn's Disease raising the suspicion for a backwash ileitis. No history of surgical resection of the bowel. Parents with IBS but no one with IBD or GI malignancy in the family. She is presently receiving morphine & high dose Solumedrol with notable improvement of her symptoms. Last colonoscopy was in 2018 and she reports her GI at [facility] recommended she have a colonoscopy while inpatient. Allergies Allergy/AdvReac Type Severity Reaction Status Date / Time acetaminophen Allergy Severe INTOLERANCE Verified 03/11/20 21:42 TO APAP amoxicillin Allergy Severe VOMIT Verified 03/11/20 21:42 doxycycline Allergy Severe DIARRHEA,UT Verified 03/11/20 21:42 I,VOMIT edetic acid Allergy Severe HEADACHES Verified 03/11/20 21:42 hydromorphone Allergy Severe MUSCLE Verified 03/11/20 21:42 SHAKE ibuprofen Allergy Severe Intolerance Verified 03/11/20 21:42 to NSAIDS rifaximin Allergy Severe HEADACHES Verified 03/11/20 21:42 Sulfa (Sulfonamide Allergy Severe SKIN BURN Verified 03/11/20 21:42 Antibiotics) risedronate sodium AdvReac Severe SHAKY/FEVER Verified 03/11/20 21:42 /VOMITING azithromycin AdvReac DIARRHEA, Verified 03/11/20 21:42 LIVER PAIN, HEADACHE leflunomide AdvReac VASCULITIS Verified 03/11/20 21:42 mesalamine [From Lialda] AdvReac MUSCLE Verified 03/11/20 21:42 SHAKES methotrexate AdvReac Vomiting Verified 03/11/20 21:42 mycophenolate mofetil AdvReac Watery Eye Verified 03/11/20 21:42 [From CellCept] ondansetron [From Zofran] AdvReac Headache Verified 03/11/20 21:42 FLOURORESIN AdvReac SKIN Uncoded 03/11/20 21:42 AROUND EYES CRACK HONEY COUGH SURUP AdvReac Joint Pain Uncoded 03/11/20 21:42 Home Medications Home Medications Medication Instructions Recorded Confirmed Type etonogestrel-ethinyl estradiol 1 ea VAGINAL DIRECTED 08/22/18 03/11/20 History [NuvaRing] calcium carbonate [Calcium 500] 500 mg PO HS 10/23/19 03/11/20 History celecoxib [Celebrex] 100 - 200 mg PO BID 10/23/19 03/11/20 History fluoxetine [Prozac] 20 mg PO QAM 10/23/19 03/11/20 History levothyroxine [Tirosint] 150 mcg PO QAM 10/23/19 03/11/20 History omeprazole 20 mg PO QAM 10/23/19 03/11/20 History cholecalciferol (vitamin D3) 3,000 unit PO DAILY 03/11/20 03/11/20 History [Vitamin D3] dicyclomine 10 mg PO QID 03/11/20 03/11/20 History ergocalciferol (vitamin D2) 50,000 unit PO .[id number] 03/11/20 03/11/20 History [Vitamin D2] mesalamine [Apriso] 0.375 g PO QAM 03/11/20 03/11/20 History prednisone 20 mg PO QAM 03/11/20 03/11/20 History Patient History Medical History Autoimmune disorder (Chronic) Primary sclerosing cholangitis Secondary Sjogren's syndrome Spondyloarthritis Thyroid cancer (Resolved) Ulcerative colitis Family History Other Family history non-contributory Social History Smoking Status: Former smoker Second Hand Exposure: No; Do You Dip or Chew Tobacco: No; Tobacco Cessation Education Requested by Patient: No Hx Substance Use: No Preferred Language: Belarusian Communication Ability: Effective Pit Furnace Operator Required: No Beliefs That Will Affect Care: None Current Living Situation: Alone Other Information That Helps Us Care for You: No Feels Safe at Home: Yes Safety Concerns: Feels Safe At This Time Review of Systems Constitutional: no fever and no chills Eyes: no problem reported Respiratory: no cough and no dyspnea Cardiovascular: no chest pain Gastrointestinal: + abdominal pain (improving significantly) and + diarrhea/loose stools Musculoskeletal: + joint pain Integumentary: no problem reported Psychiatric: stress Physical Exam Constitutional: WD/WN, vitals as above Eyes: PERRL, conjunctivae normal, anicteric sclerae ENMT: external ear and nose normal, oropharynx normal Neck: normal visual inspection Respiratory: normal respiratory effort, lungs clear to auscultation Cardiovascular: Rate/Rhythm: regular rate and regular rhythm Gastrointestinal (Abdomen): Inspection/Auscultation: abdomen normal to inspection and normal bowel sounds Percussion/Palpation: + abdomen tender Skin: no rashes, warm and dry Psychiatric: A+Ox3, euthymic affect Results & Data ([facility]) Vital Signs (Past 12 Hours) Vital Signs Temp Pulse Resp BP Pulse Ox 03/12/20 08:01 36.9 C 76 16 107/73 100 PG Care Time/CCT Total # of Minutes Spent Total Time Spent with Patient: Total time spent is greater than 50% in coordination of care (as documented) at patient's floor/unit and/or counseling patient: Coding Level of Care Code 96565 Inpt Consult Level 4 Diagnoses Ulcerative colitis K51.018 Digestive disease complication type: other complication Ulcerative colitis location: ulcerative pancolitis (1) Ulcerative colitis Digestive disease complication type: other complication Ulcerative colitis location: ulcerative pancolitis Qualified Code(s): K51.018 - Ulcerative (chronic) pancolitis with other complication
[2020-03-12] MEDS: APRISO 0.375 GM PO SCH (15:45)
--- NOTE | 2020-03-12 16:13 | Hospitalist Progress Note ---
Date of Service March 12, 2020 Assessment & Plan (1) Enteritis: CT a/p on 03/11 showed mildly dilated fluid-filled small bowel loops demonstrating wall thickening; consistent with enteritis or partial SBO. - Discussed with [facility] who feel that CMV or cryptosporidium, etc. - Will order stool samples of common and less common GI bugs - Will get colonoscopy tomorrow with biopsies (2) Ulcerative colitis: Long-standing on multiple immune-modulating medications in her past. Patient reportedly began Cosentyx injections beginning in December 13, 2019, last injection February 07, 2020. It is believed that this may be contributing to patient's current symptoms. She states that she will be starting Xeljanz, but this is in the prior authorization stage. Was previously on Stelara, but this was stopped in November 10, 2019. Follows with Gabriela Trevizo ([facility]) (c: [phone]). - Continue IV steroids - Plan for colonoscopy tomorrow - Discussed with both our GI and the patient's home GI physician. (3) Hypothyroid: Hx of thyroid cancer. - Continue levothryxoine 150 mcg daily. (4) Spondyloarthritis: Follows with mash tub cooker operator at [facility]. Patient began Cosentyx inje ctions beginning in December 13, 2019, last injection February 07, 2020. Holding Celebrex - As above (5) DVT prophylaxis: SCDs - Holding heparin for procedure tomorrow Admission and Anticipated Discharge Date Admission Date: March 12, 2020 Subjective Doing well today. Still with abdominal pain, but at least controlled with pain medication. Reports no fevers/chills, chest pain, shortness of breath. Physical Exam Constitutional: WD/WN, vitals as above Eyes: EOM intact bilaterally; no conjunctival abnormality ENMT: external ear and nose normal, oropharynx normal Neck: trachea midline, no thyromegaly normal visual inspection Respiratory: normal respiratory effort, lungs clear to auscultation no respiratory distress Cardiovascular: RRR, no murmur, no edema Gastrointestinal (Abdomen): Inspection/Auscultation: abdomen normal to inspection and normal bowel sounds; abdomen not distended Percussion/Palpation: + abdomen tender, + guarding and abdomen soft; abdomen not rigid Musculoskeletal: no cyanosis or clubbing, extremities motor strength 5/5 Skin: no rashes, warm and dry Neurologic: moves all extremities and awake Psychiatric: Orientation: alert, oriented to person and cooperative Results & Data Results & Data ([facility]) Vital Signs (Past 12 Hours) Vital Signs Temp Pulse Resp BP Pulse Ox 03/12/20 15:12 36.9 C 82 16 102/68 97 03/12/20 08:01 36.9 C 76 16 107/73 100 PG Care Time/CCT Total # of Minutes Spent Total Time Spent with Patient: Total time spent is greater than 50% in coordination of care (as documented) at patient's floor/unit and/or counseling patient: Coding Level of Care Code 40744 Subseq Hosp Care Lvl 2 Diagnoses Enteritis K52.9 Ulcerative colitis K51.018 Digestive disease complication type: other complication Ulcerative colitis location: ulcerative pancolitis Hypothyroid E03.9 Spondyloarthritis M47.819 DVT prophylaxis Z29.9 (1) Ulcerative colitis Digestive disease complication type: other complication Ulcerative colitis location: ulcerative pancolitis Qualified Code(s): K51.018 - Ulcerative (chronic) pancolitis with other complication
[2020-03-12] MEDS ORDERED: Nursing to Pharmacy Communication SCH (16:15)
[2020-03-12] MEDS ORDERED: predniSONE 20 MG TAB PO SCH (16:15)
[2020-03-12] MEDS: LAVAGE SOLUTION 4000ML PO SCH (17:58)
--- NOTE | 2020-03-12 19:50 | Billing Data ---
Date of Service March 12, 2020 Coding Level of Care Code 66825 Initial Inpt Care Lvl 2
[2020-03-12] MEDS: CALCIUM CARBONATE 1250MG TAB PO SCH (20:22)
[2020-03-12] MEDS: CALCIUM 600MG + VIT D 400 IU TAB PO SCH (20:22)
[2020-03-13] MEDS: LAVAGE SOLUTION 4000ML PO SCH (03:39)
[2020-03-13] MEDS: methylPREDNISolone 40 MG in SYRINGE 0 ML IV SCH (03:40)
[2020-03-13] MEDS: TIROSINT 150 MCG PO SCH ×2 (03:42→16:33)
[2020-03-13] MEDS: LEVOTHYROXINE SODIUM 150 MCG TABLET PO SCH (03:42)
[2020-03-13] MEDS: MoRPHine SULFATE 2 MG/ML CARP IV PRN ×2 (04:32→16:39)
[2020-03-13 05:59] LABS: Hematocrit (blood only) 35.8 % (37-47); Hemoglobin 12.2 g/dL (12.0-16.0); Mean Corpuscular Hemoglobin 30.3 pg (25-34); Mean Corpuscular Hgb Conc 34.1 g/dL (32-36); Mean Corpuscular Volume 88.8 fL (80-100); Mean Platelet Volume 8.9 fL (7.4-10.4); Platelet Count 374 K/uL (130-400); RDW Coefficient of Variation 12.5 % (11.5-14.5); RDW Standard Deviation 40.4 fL (36.4-46.3); Red Blood Count 4.03 M/uL (4.2-5.4)
[2020-03-13 06:41] LABS: Albumin Globulin Ratio 0.7 (0.9-2); Albumin Level 2.7 gm/dl (3.4-5.0); BUN Creatinine Ratio 6.1 (10-20); Bilirubin,Total 0.5 mg/dl (0.2-1); Calcium 8.8 mg/dl (8.5-10.1); Creatinine Clr Calc Pharmacy 97.9 ml/min; Est GFR (Non-African American) 100.9; Magnesium 1.8 mg/dl (1.8-2.4); Phosphorus 3.8 mg/dl (2.5-4.9); Potassium 3.9 mmol/L (3.5-5.1); Total Protein 6.7 gm/dl (6.4-8.2)
--- NOTE | 2020-03-13 08:14 | Anesthesiology Consultation ---
Date of Service March 13, 2020 Assessment & Plan (1) Encounter for pre-operative examination: Chart Review Chart Review: Acceptable Risk for Surgery (will have to evaluate for suitability for sedation with possible SBO) History Surgery Operation Date: 03/13/20 12:00 Proposed Procedures p Colonoscopy Dr. Balbir Mcgregor MD Height/Weight Height: 5 ft 4 in Weight: 69.4 kg Allergies Allergy/AdvReac Type Severity Reaction Status Date / Time acetaminophen Allergy Severe INTOLERANCE Verified 03/11/20 21:42 TO APAP amoxicillin Allergy Severe VOMIT Verified 03/11/20 21:42 doxycycline Allergy Severe DIARRHEA,UT Verified 03/11/20 21:42 I,VOMIT edetic acid Allergy Severe HEADACHES Verified 03/11/20 21:42 hydromorphone Allergy Severe MUSCLE Verified 03/11/20 21:42 SHAKE ibuprofen Allergy Severe Intolerance Verified 03/11/20 21:42 to NSAIDS rifaximin Allergy Severe HEADACHES Verified 03/11/20 21:42 Sulfa (Sulfonamide Allergy Severe SKIN BURN Verified 03/11/20 21:42 Antibiotics) risedronate sodium AdvReac Severe SHAKY/FEVER Verified 03/11/20 21:42 /VOMITING azithromycin AdvReac DIARRHEA, Verified 03/11/20 21:42 LIVER PAIN, HEADACHE leflunomide AdvReac VASCULITIS Verified 03/11/20 21:42 mesalamine [From Lialda] AdvReac MUSCLE Verified 03/11/20 21:42 SHAKES methotrexate AdvReac Vomiting Verified 03/11/20 21:42 mycophenolate mofetil AdvReac Watery Eye Verified 03/11/20 21:42 [From CellCept] ondansetron [From Zofran] AdvReac Headache Verified 03/11/20 21:42 FLOURORESIN AdvReac SKIN Uncoded 03/11/20 21:42 AROUND EYES CRACK HONEY COUGH SURUP AdvReac Joint Pain Uncoded 03/11/20 21:42 Medications Home Medications Medication Instructions Recorded Confirmed Last Taken etonogestrel-ethinyl estradiol 1 ea VAGINAL DIRECTED 08/22/18 03/11/20 08/22/18 [NuvaRing] calcium carbonate [Calcium 500] 500 mg PO HS 10/23/19 03/11/20 11/29/19 celecoxib [Celebrex] 100 - 200 mg PO BID 0303/11/20 11/30/19 10:00 fluoxetine [Prozac] 20 mg PO QAM 10/23/19 03/11/20 03/11/20 levothyroxine [Tirosint] 150 mcg PO QAM 10/23/19 03/11/20 03/11/20 omeprazole 20 mg PO QAM 10/23/19 03/11/20 03/11/20 cholecalciferol (vitamin D3) 3,000 unit PO DAILY 03/11/20 03/11/20 03/11/20 [Vitamin D3] dicyclomine 10 mg PO QID 03/11/20 03/11/20 03/11/20 WITH LUNCH ergocalciferol (vitamin D2) 50,000 unit PO .[id number] 03/11/20 03/11/20 Unknown [Vitamin D2] mesalamine [Apriso] 0.375 g PO QAM 03/11/20 03/11/20 03/11/20 prednisone 20 mg PO QAM 03/11/20 03/11/20 03/11/20 Active Medications Generic Name Dose Route Start Last Admin Trade Name Freq PRN Reason Stop Dose Admin Calcium Carbonate 1,250 mg 03/12/20 21:00 03/12/20 20:22 Os-Fidel 500 PO 04/11/20 20:59 1,250 mg HS MITRA Administration Dicyclomine HCl 10 mg 03/12/20 09:00 03/12/20 20:22 Bentyl PO 04/11/20 08:59 Not Given QID MITRA Fluoxetine HCl 20 mg 03/12/20 09:00 03/12/20 09:11 Prozac PO 04/11/20 08:59 20 mg QAM MITRA Administration Methylprednisolone 40 mg/ 0.64 mls @ 1.5 mls/min 03/12/20 16:30 03/13/20 03:40 Syringe IV 04/11/20 16:29 1.5 mls/min Q12H MITRA Administration Levothyroxine Sodium 150 mcg 03/12/20 09:50 03/13/20 03:42 Synthroid PO 04/11/20 09:49 Not Given DAILYBB MITRA Morphine Sulfate 2 mg 03/12/20 01:17 03/13/20 04:32 Morphine Sulfate IV 03/26/20 01:16 2 mg Q2H PRN Administration Pain Multi-Ingredient Cream 1 appln 03/12/20 01:17 03/12/20 20:23 Lacri-Lube OP 04/11/20 01:16 Not Given BID MITRA Multivitamins/Minerals 1 tab 03/12/20 21:00 03/12/20 20:22 Caltrate Plus PO 04/11/20 20:59 1 tab BID MITRA Administration Tirosint 150mcg 1 ea 03/13/20 06:30 03/13/20 03:42 Non-Formulary PO 04/12/20 06:29 Not Given Patient's Own Med DAILYBB MITRA Apriso Er 0.375 Gm 4 ea 03/12/20 09:00 03/12/20 15:45 Non-Formulary PO 04/11/20 08:59 4 cap Patient's Own Med DAILY MITRA Administration Polyethylene Glycol/Electrolytes 8 dose 03/12/20 18:00 03/13/20 03:39 Golytely PO 03/13/20 09:00 8 dose 0300,1800 MITRA Administration Vitamin D 3,000 units 03/12/20 09:00 03/12/20 09:11 Vitamin D3 PO 04/11/20 08:59 3,000 units DAILY MITRA Administration NPO Date Last Intake of Fluids: 03/13/20 Time Last Intake of Fluids: 01:30 Last Intake of Fluids Comment: patient stated she is going to be non compliant with NPO Date Last Intake of Solids: 03/13/20 Time Last Intake of Solids: 01:30 Last Intake of Solids Comment: patient stated she is going to be non compliant with NPO Past Medical History Medical History (Updated 03/13/20 @ 08:14 by Salvador Sexton MD) Autoimmune disorder (Chronic) Primary sclerosing cholangitis Secondary Sjogren's syndrome Spondyloarthritis Thyroid cancer (Resolved) Ulcerative colitis Past Family History Family History Other Family history non-contributory Past Surgical History Surgical History (Updated 03/13/20 @ 08:12 by Salvador Sexton MD) Hx of colonoscopy Social History Smoking Status: Former smoker tobacco type: cigarettes Do You Dip or Chew Tobacco: No Alcohol type: wine and hard liquor alcohol intake frequency: holidays/special occasions only Hx Substance Use: No Physical Exam Vital Signs Last Vital Signs Temp 36.7 C 03/13/20 07:02 Pulse 64 03/13/20 07:02 Resp 16 03/13/20 07:02 BP 114/79 03/13/20 07:02 Pulse Ox 98 03/13/20 07:02 Testing Laboratory Results 03/13/20 05:36 03/13/20 05:36 Urine Color Yellow 03/11/20 18:03 Urine Appearance Clear (Clear) 03/11/20 18:03 Urine pH 7.0 (4.5-7.5) 03/11/20 18:03 Ur Specific [place] 1.004 (1.000-1.030) 03/11/20 18:03 Urine Protein Negative (Negative) 03/11/20 18:03 Urine Glucose (UA) Negative (Negative) 03/11/20 18:03 Urine Ketones Negative (Negative) 03/11/20 18:03 Urine Nitrite Negative (Negative) 03/11/20 18:03 Ur Leukocyte Esterase Negative (Negative) 03/11/20 18:03 Urine WBC (Auto) 1-5 /hpf (0-5) 03/11/20 18:03 Urine RBC (Auto) 5-10 /hpf (0-4) H 03/11/20 18:03 U Hyaline Cast (Auto) 0 /lpf (0-5) 03/11/20 18:03 U Epithel Cells (Auto) 5-10 /lpf (0-5) H 03/11/20 18:03 Urine Bacteria (Auto) 1+ (Negative) H 03/11/20 18:03 Urine Test Negative (Negative) 03/11/20 18:03 03/12/20 20:25 WBC Smear - Final Stool 03/11/20 18:03 Urine Culture - Preliminary Urine,Clean Catch No growth - Less than 1,000 colonies/mL, Final report to follow. 03/11/20 18:03 Urine Test Negative Echocardiogram Date: 12/03/19 EF: 60-65% LV Function: normal Valvular Disease: + no significant valvular disease
[2020-03-13] MEDS: DICYCLOMINE HCL 10 MG CAP PO SCH ×4 (08:50→22:02)
[2020-03-13] MEDS: CALCIUM 600MG + VIT D 400 IU TAB PO SCH ×2 (08:50→22:01)
[2020-03-13] MEDS: OMEPRAZOLE 20 MG CAPCR PO SCH ×2 (08:51→16:33)
[2020-03-13] MEDS: APRISO 0.375 GM PO SCH (08:51)
[2020-03-13] MEDS: FLUOXETINE HCL 20 MG CAP PO SCH ×2 (08:51→17:43)
[2020-03-13] MEDS: CHOLECALCIFEROL 1,000 UNITS 25 MCG TAB PO SCH ×2 (08:51→17:43)
[2020-03-13] MEDS: ARTIFICIAL TEARS OP OINT 3.5 GM TUBE OP SCH ×2 (09:18→22:02)
--- NOTE | 2020-03-13 09:34 | History & Physical Bridge Note ---
Date of Service March 13, 2020 History & Physical Bridge Note I have examined the patient, reviewed the History & Physical and in the interval since the performance of the History & Physical I have noted the following changes of clinical significance: no changes noted Patient has completed her bowel prep. She will proceed with a colonoscopy today. Continue IV Solumedrol with calcium & vitamin D supplementation.
[2020-03-13] MEDS ORDERED: fentaNYL citrate 100 MCG/2 ML VIAL ONE (13:11)
[2020-03-13] MEDS ORDERED: MIDAZOLAM HCL 1 MG/ML 2ML VIAL ONE (13:11)
[2020-03-13] MEDS ORDERED: PROPOFOL IV EMULSION 10 MG/ML 20 ML VIAL IV ONE (13:13)
[2020-03-13] MEDS ORDERED: SUCCINYLCHOLINE CHLORIDE 20 MG/ML 10 ML VIAL IV ONE (13:13)
[2020-03-13] MEDS ORDERED: fentaNYL citrate 100 MCG/2 ML VIAL IV PRN (13:16)
[2020-03-13] MEDS ORDERED: ATROPINE SULFATE 0.1 MG/ML 10ML SYR IV PRN (13:16)
[2020-03-13] MEDS ORDERED: ePHEDrine sulfate 50 MG/ML AMP IV PRN (13:16)
[2020-03-13] MEDS ORDERED: PROMETHAZINE HCL 12.5 MG in SODIUM CHLORIDE 0.9% 50 ML IV PRN (13:16)
[2020-03-13] MEDS ORDERED: ePHEDrine sulfate 50 MG/ML AMP ONE (13:59)
[2020-03-13] MEDS ORDERED: WATER, STERILE FOR INJ 10 ML VIAL ONE (13:59)
[2020-03-13] MEDS ORDERED: ROCURONIUM BROMIDE 10 MG/ML 5 ML VIAL IV ONE (13:59)
--- NOTE | 2020-03-13 14:22 | GI REPORT ---
Patient Name: Owen Dunne Procedure Date: 03/13/2020 1:06 PM Date of : 1985 Admit Type: Inpatient Age: 34 Gender: Female Attending MD: Kevan Mcgregor MD Procedure: Colonoscopy Providers: Kevan Mcgregor MD Referring MD: Referred Self Indications: Ulcerative colitis Medicines: Monitored Anesthesia Care Complications: No immediate complications. Estimated blood loss: None. Estimated Blood Loss: Estimated blood loss: none. Procedure: Pre-Anesthesia Assessment: - Prior Anticoagulants: The patient has taken no previous anticoagulant or antiplatelet agents. - ASA Grade Assessment: III - A patient with severe systemic disease. After I obtained informed consent, the scope was passed under direct vision. Throughout the procedure, the patient's blood pressure, pulse, and oxygen saturations were monitored continuously. The scope was introduced through the anus and advanced to the terminal ileum, with identification of the appendiceal orifice and IC valve. The colonoscopy was performed without difficulty. The patient tolerated the procedure well. The quality of the bowel preparation was fair. Findings: Diffuse inflammation, moderate in severity and characterized by erythema and aphthous ulcerations was found in the terminal ileum. Biopsies were taken with a cold forceps for histology. Estimated blood loss: none. Diffuse moderate inflammation characterized by erythema, deep ulcerations, serpentine ulcerations and shallow ulcerations was found in the entire colon. Biopsies were taken with a cold forceps for histology from the right and left colon. stool aspirate sent for testing. Estimated blood loss: none. Impression: - Preparation of the colon was fair. - Inflammatory changes rule out infectious ileitis. Biopsied. - Diffuse moderate inflammation was found in the entire examined colon, rule out infectious colitis. Biopsied. Recommendation: - Return patient to hospital [facility] for ongoing care. - Clear liquid diet today. - Await pathology results. -d/c solumedrol at this time, can start prednisone 20 mg daily for now pending pathology and stool testing Kevan Mcgregor MD 03/13/2020 2:22:28 PM This report has been signed electronically. Note Initiated On: 03/13/2020 1:06 PM Number of Addenda: 0 I attest to the content of the Intraoperative Record and orders documented therein, exceptions below {[id number]}
--- NOTE | 2020-03-13 16:07 | Anesthesiology Progress Note ---
Date of Service March 13, 2020 Anesthesia Post Procedure Vital Signs Vital Signs: Temp Pulse Pulse Pulse Resp BP BP 03/13/20 15:45 36.9 C 90 19 115/64 03/13/20 15:30 99 H 13 117/77 03/13/20 15:15 97 H 21 121/71 03/13/20 15:00 37.0 C 92 H 18 126/74 03/13/20 14:50 100 H 17 117/76 03/13/20 14:40 103 H 19 125/71 03/13/20 14:30 117 H 19 124/73 03/13/20 14:20 36.3 C L 120 H 20 112/59 L 03/13/20 13:13 36.5 C 65 14 111/80 03/13/20 07:02 36.7 C 64 16 114/79 03/12/20 23:10 36.7 C 67 16 101/67 101/67 Pulse Ox 03/13/20 15:45 95 03/13/20 15:30 96 03/13/20 15:15 94 03/13/20 15:00 96 03/13/20 14:50 97 03/13/20 14:40 97 03/13/20 14:30 98 03/13/20 14:20 97 03/13/20 13:13 98 03/13/20 07:02 98 03/12/20 23:10 96 Pain Intensity Abdomen: Pain Intensity: 7 Upper Back: Pain Intensity: 4 Chest: Pain Intensity: 4 Transfer of Care Handoff Completed per policy Notes Mental Status: alert / awake / arousable and participated in evaluation Patient Amnestic to Procedure: Yes Nausea / Vomiting: adequately controlled Pain: adequately controlled Airway Patency, RR, SpO2: stable & adequate BP & HR: stable & adequate Hydration State: stable & adequate Anesthetic Complications: no major complications apparent and Pt Satisfied with anesthetic care
--- NOTE | 2020-03-13 16:33 | Hospitalist Progress Note ---
Date of Service March 13, 2020 Assessment & Plan (1) Enteritis: CT a/p on 03/11 showed mildly dilated fluid-filled small bowel loops demonstrating wall thickening; consistent with enteritis or partial SBO. - Discussed with [facility] GI who feel that CMV or cryptosporidium, etc. - Stool samples of common and less common GI bugs ordered and collected on 03/12. - Colonoscopy on 03/13 with diffuse irritation and ulcerations. Biopsies taken as well as stool aspirate. - Stop steroids for now. (2) Ulcerative colitis: Long-standing on multiple immune-modulating medications in her past. Patient reportedly began Cosentyx injections beginning in December 13, 2019, last injection February 07, 2020. It is believed that this may be contributing to patient's current symptoms. She states that she will be starting Xeljanz, but this is in the prior authorization stage. Was previously on Stelara, but this was stopped in November 10, 2019. Follows with Gabriela Trevizo ([facility]) (c: [phone]). - Stop steroids - Colonoscopy as above - Discussed with both our GI and the patient's home GI physician. (3) Hypothyroid: Hx of thyroid cancer, s/p removal. - Continue levothyroxine 150 mcg daily. (4) Spondyloarthritis: Follows with advertisement compositor at [facility]. Patient began Cosentyx injections beginning in December 13, 2019, last injection February 07, 2020. Holding Celebrex - As above (5) DVT prophylaxis: SCDs - Holding heparin for ulcerations in the colon. Admission and Anticipated Discharge Date Admission Date: March 12, 2020 Subjective Feeling more comfortable this morning. Less cramping now that colon prep is almost done. Reports no fevers/chills, chest pain, shortness of breath, or vomiting. Physical Exam Constitutional: WD/WN, vitals as above Eyes: EOM intact bilaterally; no conjunctival abnormality ENMT: external ear and nose normal, oropharynx normal Neck: trachea midline, no thyromegaly normal visual inspection Respiratory: normal respiratory effort, lungs clear to auscultation no respiratory distress Cardiovascular: RRR, no murmur, no edema Gastrointestinal (Abdomen): Inspection/Auscultation: abdomen normal to inspection and normal bowel sounds; abdomen not distended Percussion/Palpation: + abdomen tender, + guarding and abdomen soft; abdomen not rigid Musculoskeletal: no cyanosis or clubbing, extremities motor strength 5/5 Skin: no rashes, warm and dry Neurologic: moves all extremities and awake Psychiatric: Orientation: alert, oriented to person and cooperative Results & Data Results & Data ([facility]) Vital Signs (Past 12 Hours) Vital Signs Temp Pulse Pulse Resp BP Pulse Ox 03/13/20 16:10 37.0 C 104 H 16 109/71 96 03/13/20 15:45 36.9 C 90 19 115/64 95 03/13/20 15:30 99 H 13 117/77 96 03/13/20 15:15 97 H 21 121/71 94 03/13/20 15:00 37.0 C 92 H 18 126/74 96 03/13/20 14:50 100 H 17 117/76 97 03/13/20 14:40 103 H 19 125/71 97 03/13/20 14:30 117 H 19 124/73 98 03/13/20 14:20 36.3 C L 120 H 20 112/59 L 97 03/13/20 13:13 36.5 C 65 14 111/80 98 03/13/20 07:02 36.7 C 64 16 114/79 98 PG Care Time/CCT Total # of Minutes Spent Total Time Spent with Patient: Total time spent is greater than 50% in coordination of care (as documented) at patient's floor/unit and/or counseling patient: Coding Level of Care Code 91646 Subseq Hosp Care Lvl 3 Diagnoses Enteritis K52.9 Ulcerative colitis K51.018 Ulcerative colitis location: ulcerative pancolitis Digestive disease complication type: other complication Hypothyroid E03.9 Spondyloarthritis M47.819 DVT prophylaxis Z29.9 (1) Ulcerative colitis Ulcerative colitis location: ulcerative pancolitis Digestive disease complication type: other complication Qualified Code(s): K51.018 - Ulcerative (chronic) pancolitis with other complication
[2020-03-13] MEDS: CALCIUM CARBONATE 1250MG TAB PO SCH (22:01)
[2020-03-13] MEDS ORDERED: LORATADINE 10 MG TAB PO ONE (22:22)
[2020-03-14] MEDS: MoRPHine SULFATE 2 MG/ML CARP IV PRN ×4 (05:49→23:12)
[2020-03-14] MEDS: TIROSINT 150 MCG PO SCH (05:50)
[2020-03-14] MEDS: OMEPRAZOLE 20 MG CAPCR PO SCH (05:52)
[2020-03-14] MEDS: LEVOTHYROXINE SODIUM 150 MCG TABLET PO SCH (05:53)
[2020-03-14 06:22] LABS: Basophils # (auto) 0.02 K/uL (0-0.2); Basophils % (auto) 0.2 %; Eosinophils # (auto) 0.15 K/uL (0-0.5); Eosinophils % (auto) 1.3 %; Hematocrit (blood only) 31.3 % (37-47); Hemoglobin 10.7 g/dL (12.0-16.0); Immature Granulocytes # (auto) 0.06 K/uL (0.00-0.02); Immature Granulocytes % (auto) 0.5 %; Lymphocytes # (auto) 2.95 K/uL (1.2-3.4); Lymphocytes % (auto) 25.8 %; Mean Corpuscular Hemoglobin 31.1 pg (25-34); Mean Corpuscular Hgb Conc 34.2 g/dL (32-36); Mean Platelet Volume 9.2 fL (7.4-10.4); Monocytes # (auto) 0.85 K/uL (0.11-0.59); Monocytes % (auto) 7.4 %; Neutrophils % (auto) 64.8 %; Platelet Count 333 K/uL (130-400); RDW Coefficient of Variation 12.8 % (11.5-14.5); RDW Standard Deviation 42.6 fL (36.4-46.3); Red Blood Count 3.44 M/uL (4.2-5.4); White Blood Count 11.43 K/uL (4.8-10.8)
[2020-03-14 06:53] LABS: BUN Creatinine Ratio 7.3 (10-20); Creatinine Clr Calc Pharmacy 96.6 ml/min; Est GFR (African American) 115.1; Est GFR (Non-African American) 99.3; Magnesium 1.8 mg/dl (1.8-2.4); Potassium 3.5 mmol/L (3.5-5.1)
[2020-03-14] MEDS: ARTIFICIAL TEARS OP OINT 3.5 GM TUBE OP SCH ×2 (08:53→20:32)
[2020-03-14] MEDS: APRISO 0.375 GM PO SCH (08:53)
[2020-03-14] MEDS: DICYCLOMINE HCL 10 MG CAP PO SCH ×4 (08:53→20:32)
[2020-03-14] MEDS: CALCIUM 600MG + VIT D 400 IU TAB PO SCH ×2 (08:53→20:32)
[2020-03-14] MEDS ORDERED: predniSONE 5 MG TAB PO STA (10:31)
--- NOTE | 2020-03-14 10:34 | Gastroenterology Progress Note ---
Date of Service March 14, 2020 Assessment & Plan Admission and Anticipated Discharge Date Admission Date: March 12, 2020 Subjective Pt with continued pain with attempts at PO, relieved with frequent morphine. No BM. Passing small amts flatus. CV: RRR Resp: CTA Abd: soft A/P: IBD, abdominal pain related to ? infectious colitis. - She is on chronic steroids and at risk for adrenal insufficiency if steroids abruptly stopped. Will resume pred 5. - Follow up path, cont narcs, analgesics and bowel rest for now. Results & Data ([facility]) Vital Signs (Past 12 Hours) Vital Signs Temp Pulse Resp BP Pulse Ox 03/14/20 08:07 36.7 C 91 H 17 104/68 99 03/13/20 23:36 36.9 C 81 20 96/59 L 95
[2020-03-14] MEDS ORDERED: D5W AND 1/4NSS 1,000 ML IV SCH (10:45)
[2020-03-14] MEDS: FLUOXETINE HCL 20 MG CAP PO SCH (10:52)
[2020-03-14] MEDS: CHOLECALCIFEROL 1,000 UNITS 25 MCG TAB PO SCH (10:52)
--- NOTE | 2020-03-14 13:45 | Hospitalist Progress Note ---
Date of Service March 14, 2020 Assessment & Plan (1) Enteritis: CT a/p on 03/11 showed mildly dilated fluid-filled small bowel loops demonstrating wall thickening; consistent with enteritis or partial SBO. - Discussed with [facility] GI who feel that CMV or cryptosporidium, etc. are a concern. - Stool samples of common and less common GI bugs ordered and collected on 03/12. - Colonoscopy on 03/13 with diffuse irritation and ulcerations. Biopsies taken as well as stool aspirate. - Stop steroids for now. - Feeling worse today without steroids. Will get cortisol in the AM to assess adrenal status given long-standing steroid use (2017). = Hgb down today slightly. Will get iron studies with AM labs. Would be surprised if not somewhat iron deficient. Can offer IV iron as needed. (2) Ulcerative colitis: Long-standing on multiple immune-modulating medications in her past. Patient reportedly began Cosentyx injections beginning in December 13, 2019, last injection February 07, 2020. It is believed that this may be contributing to patient's current symptoms. She states that she will be starting Xeljanz, but this is in the prior authorization stage. Was previously on Stelara, but this was stopped in November 10, 2019. Follows with Gabriela Trevizo ([facility]) (c: [phone]). - Stop steroids as above - Colonoscopy as above - Discussed with both our GI and the patient's home GI physician. (3) Hypothyroid: Hx of thyroid cancer, s/p removal. - Continue levothyroxine 150 mcg daily. (4) Spondyloarthritis: Follows with automation tester at [facility]. Patient began Cosentyx injections beginning in December 13, 2019, last injection February 07, 2020. Holding Celebrex - As above -> Called [facility] consult line to speak with her automation tester. Awaiting call back. Will try to find alternative meds to help with her pain. (5) DVT prophylaxis: SCDs - Holding heparin for ulcerations in the colon. Admission and Anticipated Discharge Date Admission Date: March 12, 2020 Subjective With more pain in the head, shoulders, and even some worse in the stomach. Physical Exam Constitutional: WD/WN, vitals as above Eyes: EOM intact bilaterally; no conjunctival abnormality ENMT: external ear and nose normal, oropharynx normal Neck: trachea midline, no thyromegaly normal visual inspection Respiratory: normal respiratory effort, lungs clear to auscultation no respiratory distress Cardiovascular: RRR, no murmur, no edema Gastrointestinal (Abdomen): Inspection/Auscultation: abdomen normal to inspection and normal bowel sounds; abdomen not distended Percussion/Palpation: + abdomen tender, + guarding and abdomen soft; abdomen not rigid Musculoskeletal: no cyanosis or clubbing, extremities motor strength 5/5 Skin: no rashes, warm and dry Neurologic: moves all extremities and awake Psychiatric: Orientation: alert, oriented to person and cooperative Results & Data Results & Data ([facility]) Vital Signs (Past 12 Hours) Vital Signs Temp Pulse Resp BP Pulse Ox 03/14/20 08:07 36.7 C 91 H 17 104/68 99 PG Care Time/CCT Total # of Minutes Spent Total Time Spent with Patient: Total time spent is greater than 50% in coordination of care (as documented) at patient's floor/unit and/or counseling patient: Coding Level of Care Code 33689 Subseq Hosp Care Lvl 2 Diagnoses Enteritis K52.9 Ulcerative colitis K51.018 Ulcerative colitis location: ulcerative pancolitis Digestive disease complication type: other complication Hypothyroid E03.9 Spondyloarthritis M47.819 DVT prophylaxis Z29.9 (1) Ulcerative colitis Ulcerative colitis location: ulcerative pancolitis Digestive disease complication type: other complication Qualified Code(s): K51.018 - Ulcerative (chronic) pancolitis with other complication
[2020-03-14] MEDS ORDERED: D5W AND 1/2NSS 1,000 ML IV SCH (14:00)
[2020-03-14] MEDS: CALCIUM CARBONATE 1250MG TAB PO SCH (20:32)
[2020-03-15] MEDS: TIROSINT 150 MCG PO SCH (05:32)
[2020-03-15] MEDS: OMEPRAZOLE 20 MG CAPCR PO SCH (05:32)
[2020-03-15] MEDS: MoRPHine SULFATE 2 MG/ML CARP IV PRN ×3 (08:11→17:34)
[2020-03-15] MEDS: CHOLECALCIFEROL 1,000 UNITS 25 MCG TAB PO SCH (08:38)
[2020-03-15] MEDS: predniSONE 5 MG TAB PO SCH (08:38)
[2020-03-15] MEDS: APRISO 0.375 GM PO SCH (08:39)
[2020-03-15] MEDS: ARTIFICIAL TEARS OP OINT 3.5 GM TUBE OP SCH ×2 (08:39→20:31)
[2020-03-15] MEDS: CALCIUM 600MG + VIT D 400 IU TAB PO SCH ×2 (08:39→20:31)
[2020-03-15] MEDS: FLUOXETINE HCL 20 MG CAP PO SCH (08:39)
[2020-03-15] MEDS: DICYCLOMINE HCL 10 MG CAP PO SCH ×4 (08:39→20:31)
[2020-03-15 08:47] LABS: Hemoglobin 11.1 g/dL (12.0-16.0); Mean Corpuscular Hemoglobin 30.2 pg (25-34); Mean Corpuscular Hgb Conc 33.6 g/dL (32-36); Mean Corpuscular Volume 89.9 fL (80-100); Mean Platelet Volume 8.8 fL (7.4-10.4); Platelet Count 342 K/uL (130-400); RDW Coefficient of Variation 12.6 % (11.5-14.5); RDW Standard Deviation 41.1 fL (36.4-46.3); Red Blood Count 3.67 M/uL (4.2-5.4); White Blood Count 11.16 K/uL (4.8-10.8)
[2020-03-15 09:11] LABS: Albumin Level 2.5 gm/dl (3.4-5.0); BUN Creatinine Ratio 5.4 (10-20); Calcium 7.7 mg/dl (8.5-10.1); Creatinine Clr Calc Pharmacy 87.5 ml/min; Est GFR (African American) 102.2; Est GFR (Non-African American) 88.2; Magnesium 1.7 mg/dl (1.8-2.4); Potassium 3.1 mmol/L (3.5-5.1)
[2020-03-15 09:14] LABS: Albumin Globulin Ratio 0.8 (0.9-2); Bilirubin,Total 0.4 mg/dl (0.2-1); Ferritin 39.3 ng/ml (8-388); Globulin 3.2 gm/dl (2.5-4.0); Phosphorus 2.5 mg/dl (2.5-4.9); Total Protein 5.7 gm/dl (6.4-8.2)
[2020-03-15] MEDS ORDERED: POTASSIUM PHOS 3 MMOL/1 ML INFUSION IV STA (12:45)
[2020-03-15] MEDS ORDERED: NORMOSOL-R 1,000 ML IV ONE (12:45)
--- NOTE | 2020-03-15 12:52 | Hospitalist Progress Note ---
Date of Service March 15, 2020 Assessment & Plan (1) Enteritis: CT a/p on 03/11 showed mildly dilated fluid-filled small bowel loops demonstrating wall thickening; consistent with enteritis or partial SBO. - Discussed with [facility] GI who feel that CMV or cryptosporidium, etc. are a concern. - Stool samples of common and less common GI bugs ordered and collected on 03/12. - Colonoscopy on 03/13 with diffuse irritation and ulcerations. Biopsies taken as well as stool aspirate. - Hgb down slightly from baseline at 11.1; however, iron studies indicate anemia of chronic disease rather than alex iron deficiency. - AM cortisol on 03/15 was 3.9 (however, this is after getting 5 mg of prednison e on 03/14). -> Continue prednisone 5 mg PO daily for now. - Will follow up with our GI as well as Dr. Trevizo. (2) Ulcerative colitis: Long-standing on multiple immune-modulating medications in her past. Patient reportedly began Cosentyx injections beginning in December 13, 2019, last injection February 07, 2020. It is believed that this may be contributing to patient's current symptoms. She states that she will be starting Xeljanz, but this is in the prior authorization stage. Was previously on Stelara, but this was stopped in November 10, 2019. Follows with Gabriela Trevizo ([facility]) (c: [phone]). - Colonoscopy as above - Discussed with both our GI and the patient's home GI physician. (3) Hypothyroid: Hx of thyroid cancer, s/p removal. - Continue levothyroxine 150 mcg daily. (4) Spondyloarthritis: Follows with carbon setter (Iris Nix) at [facility]. Patient began Cosentyx injections beginning in December 13, 2019, last injection February 07, 2020. Holding Celebrex - As above -> Discussed with Dr. Nix on 03/14 who was in agreement with plan and did give reservations about stopping/dropping steroids too suddenly. To reach her next week, you can call [facility] transfer line ([phone]) (or ask me as I have her e-mail and cell phone number). (5) DVT prophylaxis: SCDs - Holding heparin for ulcerations in the colon. Admission and Anticipated Discharge Date Admission Date: March 12, 2020 Subjective Is having steroid withdrawal symptoms with neck, jaw, shoulder pain and headache. Watery diarrhea with some cramping as well. Reports no fevers/chills, chest pain, shortness of breath, or vomiting. Physical Exam Constitutional: WD/WN, vitals as above Eyes: EOM intact bilaterally; no conjunctival abnormality ENMT: external ear and nose normal, oropharynx normal Neck: trachea midline, no thyromegaly normal visual inspection Respiratory: normal respiratory effort, lungs clear to auscultation no respiratory distress Cardiovascular: RRR, no murmur, no edema Gastrointestinal (Abdomen): Inspection/Auscultation: abdomen normal to inspection and normal bowel sounds; abdomen not distended Percussion/Palpation: + abdomen tender, + guarding and abdomen soft; abdomen not rigid Musculoskeletal: no cyanosis or clubbing, extremities motor strength 5/5 Skin: no rashes, warm and dry Neurologic: moves all extremities and awake Psychiatric: Orientation: alert, oriented to person and cooperative Results & Data Results & Data ([facility]) Vital Signs (Past 12 Hours) Vital Signs Temp Pulse Pulse Resp BP Pulse Ox 03/15/20 08:08 76 112/74 03/15/20 07:40 37 C 72 18 157/77 H 97 PG Care Time/CCT Total # of Minutes Spent Total Time Spent with Patient: Total time spent is greater than 50% in coordination of care (as documented) at patient's floor/unit and/or counseling patient: Coding Level of Care Code 03534 Subseq Hosp Care Lvl 2 Diagnoses Enteritis K52.9 Ulcerative colitis K51.018 Ulcerative colitis location: ulcerative pancolitis Digestive disease complication type: other complication Hypothyroid E03.9 Spondyloarthritis M47.819 DVT prophylaxis Z29.9 (1) Ulcerative colitis Ulcerative colitis location: ulcerative pancolitis Digestive disease complication type: other complication Qualified Code(s): K51.018 - Ulcerative (chronic) pancolitis with other complication
[2020-03-15] MEDS: POTASSIUM CHLORIDE / WTR 10 MEQ/100 ML PLCT IV SCH ×4 (13:26→18:34)
[2020-03-15] MEDS: MAGNESIUM SULFATE / D5W 1 GM/100 ML BAG IV SCH ×3 (13:26→18:36)
[2020-03-15 13:52] LABS: Folate (Folic Acid) 11.98 ng/ml (>5.38)
[2020-03-15] MEDS ORDERED: CALCIUM GLUCONATE 10% 2,000 MG in SODIUM CHLORIDE 0.9% 50 ML IV ONE (14:00)
[2020-03-15] MEDS ORDERED: D5W AND 1/2NSS 1,000 ML IV SCH (14:45)
[2020-03-15] MEDS ORDERED: POTASSIUM PHOSPHATE 15 MMOL in SODIUM CHLORIDE 0.9% 250 ML IV ONE (17:30)
[2020-03-15] MEDS: PROCHLORPERAZINE 10 MG in SYRINGE 8 ML IV PRN (17:44)
[2020-03-15] MEDS: CALCIUM CARBONATE 1250MG TAB PO SCH (20:31)
--- NOTE | 2020-03-16 00:28 | Gastroenterology Progress Note ---
Date of Service March 16, 2020 Assessment & Plan Admission and Anticipated Discharge Date Admission Date: March 12, 2020 Subjective Late entry from 03/15 Pt reports frequent watery diarrhea, pain with attempts at PO, SHe also reports diffuse joint pain. PE: pale, tired appearing HEENT; OC clear CV: RRR Resp: CTA Abd: soft. mild diffuse tenderness Labs reviewed - new elevation of ALT A/P: H/o UC now with abd pain/diarrhea, punched out ulcers on cscopy suspicious for CMV - Await pathology results. Discussed need to expedite path with aeronautical engineering teacher pathologist, Dr. Craft. If CMV seen on path, anticipate IV ganciclovir - Cont low dose pred 5. 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 Consider endocrine to help manage. - She continues to have signifcant abdominal pain on PO -- consider EGD to r/o upper tract disease, but will defer to primary GI. She also is requiring frequent morphine, and has had minimal PO since admission; would ask primary GI to consider Marinol for pain control and to aid with nutrition - ALT elevation due to sludge? Secondary to CMV? Recheck LFT's, lipase in am. Uls if remain increased. Results & Data ([facility]) Vital Signs (Past 12 Hours) Vital Signs Temp Pulse Pulse Resp BP BP Pulse Ox 03/15/20 23:35 36.8 C 75 16 94/59 L 96 03/15/20 17:37 37 C 73 18 110/72 97
[2020-03-16] MEDS: TIROSINT 150 MCG PO SCH (05:34)
[2020-03-16] MEDS: OMEPRAZOLE 20 MG CAPCR PO SCH (05:35)
[2020-03-16 06:03] LABS: Hematocrit (blood only) 36.1 % (37-47); Hemoglobin 11.6 g/dL (12.0-16.0); Mean Corpuscular Hgb Conc 32.1 g/dL (32-36); Mean Corpuscular Volume 90.3 fL (80-100); Mean Platelet Volume 8.8 fL (7.4-10.4); Platelet Count 367 K/uL (130-400); RDW Coefficient of Variation 12.7 % (11.5-14.5); RDW Standard Deviation 41.9 fL (36.4-46.3); White Blood Count 11.57 K/uL (4.8-10.8)
[2020-03-16 06:41] LABS: Albumin Level 2.5 gm/dl (3.4-5.0); BUN Creatinine Ratio 4.4 (10-20); Calcium 8.4 mg/dl (8.5-10.1); Creatinine Clr Calc Pharmacy 96.6 ml/min; Est GFR (African American) 115.1; Est GFR (Non-African American) 99.3; Magnesium 2.1 mg/dl (1.8-2.4); Potassium 3.2 mmol/L (3.5-5.1)
[2020-03-16 06:44] LABS: Albumin Globulin Ratio 0.7 (0.9-2); Bilirubin,Total 0.4 mg/dl (0.2-1); Globulin 3.4 gm/dl (2.5-4.0); Phosphorus 2.8 mg/dl (2.5-4.9); Total Protein 5.9 gm/dl (6.4-8.2)
[2020-03-16] MEDS: CALCIUM 600MG + VIT D 400 IU TAB PO SCH ×2 (07:38→21:51)
[2020-03-16] MEDS: MoRPHine SULFATE 2 MG/ML CARP IV PRN ×3 (08:13→21:48)
[2020-03-16] MEDS: CHOLECALCIFEROL 1,000 UNITS 25 MCG TAB PO SCH (08:17)
[2020-03-16] MEDS: predniSONE 5 MG TAB PO SCH (08:17)
[2020-03-16] MEDS: ARTIFICIAL TEARS OP OINT 3.5 GM TUBE OP SCH ×2 (08:17→21:52)
[2020-03-16] MEDS: DICYCLOMINE HCL 10 MG CAP PO SCH ×4 (08:17→21:51)
[2020-03-16] MEDS: FLUOXETINE HCL 20 MG CAP PO SCH (08:17)
[2020-03-16] MEDS: APRISO 0.375 GM PO SCH (08:18)
[2020-03-16] MEDS ORDERED: POTASSIUM CHLORIDE 20 MEQ TABCR PO STA (08:26)
[2020-03-16] MEDS ORDERED: LORATADINE 10 MG TAB PO ONE (08:26)
[2020-03-16] MEDS ORDERED: POTASSIUM CHLORIDE / WTR 10 MEQ/100 ML PLCT IV SCH (08:30)
--- NOTE | 2020-03-16 08:57 | Hospitalist Progress Note ---
Date of Service March 16, 2020 Assessment & Plan (1) Enteritis: * CT a/p on 03/11 showed mildly dilated fluid-filled small bowel loops demonstrating wall thickening; consistent with enteritis or partial SBO. * Discussed with [facility] GI who feel that CMV or cryptosporidium, etc. are a concern * samples of common and less common GI bugs ordered and collected on 03/12 --> no e.coli, salmonella, shigella, campylobacter on stool culture. Yersinia sample was rejected and not yet recollected * Colonoscopy on 03/13 with diffuse irritation and ulcerations. Biopsies taken as well as stool aspirate --> pending * Hgb down slightly from baseline at 11.1; currently 11.6/36.1 now that fluids discontinued. Iron studies indicate anemia of chronic disease rather than alex iron deficiency. * AM cortisol on 03/15 was 3.9 (however, this is after getting 5 mg of prednisone on 03/14) -> Increased prednisone to 10mg daily for next three days and then will decrease back to 5mg daily * Will follow up with our GI as well as Dr. 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 It is believed that this may be contributing to patient's current symptoms. She states that she will be starting Xeljanz, but this is in the prior authorization stage. Was previously on Stelara, but this was stopped in November 10, 2019. Follows with Gabriela Trevizo ([facility]) (c: [phone]). * Colonoscopy as above * Previously discussed with both our GI and the patient's home GI physician. (3) Hypothyroid: * Hx of thyroid cancer, s/p removal. * Continue levothyroxine 150 mcg daily. (4) Spondyloarthritis: * Follows with mill laborer (Iris Nix) at [facility]. Patient began Cosentyx injections beginning in December 13, 2019, last injection February 07, 2020. * Holding Celebrex * As above -> Discussed with Dr. Nix on 03/14 who was in agreement with plan and did give reservations about stopping/dropping steroids too suddenly. To reach her next week, you can call [facility] transfer line ([phone]) (5) Hypomagnesemia: * Mag 1.7 on 03/15 - replaced * Resolved -- repeat 2.1 (6) Hypokalemia: * Low mag 03/15 at 1.7 -- replaced * K today 3.2 -- ordered 40meq x1 * Labs in AM (7) DVT prophylaxis: * SCDs - Holding heparin for ulcerations in the colon. Admission and Anticipated Discharge Date Admission Date: March 12, 2020 Supervising Physician Co-Signing Physician Notes PA Supervision Note: I did not personally see or examine the patient today, but I verified all puckett points of ALY Yen's assessment and plan with the following exceptions/additions: None Subjective Patient evaluated this morning. Still with abdominal pain, requiring morphine. States she has continued to have diarrhea, brought on by eating. Denies any blood in stool currently that she has noticed. Some nausea this morning but resolved with medication. States she tolerated liquid diet this morning and would like to try something more substantial later today but notes she is both gluten and dairy free. She states she did have 20mg prednisone for 3 days last week but had been on 5mg prior. Prednisone had been given for her history of ankylosing spondylarthropathy. She states she was supposed to begin Xeljanz and was delivered to her house today, but may not be started if she has the CMV as we are waiting pathology currently. Denies chest pain, fever, chills, shortness of breath, vomiting, hematuria, melena or hematochezia at this time. Review of Systems Review of Systems: All systems reviewed & are unremarkable except as noted in HPI & below Physical Exam Constitutional: WD/WN, vitals as above Eyes: EOM intact bilaterally; no conjunctival abnormality ENMT: external ear and nose normal, oropharynx normal Neck: trachea midline, no thyromegaly normal visual inspection Respiratory: normal respiratory effort, lungs clear to auscultation no respiratory distress Cardiovascular: RRR, no murmur, no edema Gastrointestinal (Abdomen): Inspection/Auscultation: abdomen normal to inspection and normal bowel sounds; abdomen not distended Percussion/Palpation: + abdomen tender, + guarding and abdomen soft; abdomen not rigid Musculoskeletal: no cyanosis or clubbing, extremities motor strength 5/5 Skin: no rashes, warm and dry Neurologic: moves all extremities and awake Psychiatric: Orientation: alert, oriented to person and cooperative Lymphatic: no cervical or axillary lymphadenopathy Results & Data Results & Data ([facility]) Vital Signs (Past 12 Hours) Vital Signs Temp Pulse Resp BP BP Pulse Ox 03/16/20 07:32 36.9 C 89 16 101/69 96 03/15/20 23:35 36.8 C 75 16 94/59 L 96 Laboratory Results 03/16/20 03/16/20 03/16/20 Range/Units Unknown 05:27 05:27 WBC 11.57 H (4.8-10.8) K/uL RBC 4.00 L (4.2-5.4) M/uL Hgb 11.6 L (12.0-16.0) g/dL Hct 36.1 L (37-47) % MCV 90.3 (80-100) fL MCH 29.0 (25-34) pg MCHC 32.1 (32-36) g/dL RDW Std Deviation 41.9 (36.4-46.3) fL RDW Coeff of Chaim 12.7 (11.5-14.5) % Plt Count 367 (130-400) K/uL MPV 8.8 (7.4-10.4) fL Sodium 141 (136-145) mmol/L Potassium 3.2 L (3.5-5.1) mmol/L Chloride 110 H (98-107) mmol/L Carbon Dioxide 24 (21-32) mmol/L Anion Gap 8.0 (3-11) BUN 3 L (7-18) mg/dl Creatinine 0.77 (0.6-1.2) mg/dl Est Cr Clr Drug Dosing 96.6 ml/min Est GFR ( Amer) 115.1 Est GFR (Non-Af Amer) 99.3 BUN/Creatinine Ratio 4.4 L (10-20) Glucose 80 (70-99) mg/dl Calcium 8.4 L (8.5-10.1) mg/dl Phosphorus 2.8 (2.5-4.9) mg/dl Magnesium 2.1 (1.8-2.4) mg/dl Total Bilirubin 0.4 (0.2-1) mg/dl AST 50 H (15-37) U/L ALT 122 H (12-78) U/L Alkaline Phosphatase 193 H (45-117) U/L Total Protein 5.9 L (6.4-8.2) gm/dl Albumin 2.5 L (3.4-5.0) gm/dl Globulin 3.4 (2.5-4.0) gm/dl Albumin/Globulin Ratio 0.7 L (0.9-2) Lipase 129 (73-393) U/L Stool Occult Bld Scrn Negative (Negative) Stl Yersinia Cult Final 03/13/20 Range/Units Unknown WBC (4.8-10.8) K/uL RBC (4.2-5.4) M/uL Hgb (12.0-16.0) g/dL Hct (37-47) % MCV (80-100) fL MCH (25-34) pg MCHC (32-36) g/dL RDW Std Deviation (36.4-46.3) fL RDW Coeff of Chaim (11.5-14.5) % Plt Count (130-400) K/uL MPV (7.4-10.4) fL Sodium (136-145) mmol/L Potassium (3.5-5.1) mmol/L Chloride (98-107) mmol/L Carbon Dioxide (21-32) mmol/L Anion Gap (3-11) BUN (7-18) mg/dl Creatinine (0.6-1.2) mg/dl Est Cr Clr Drug Dosing ml/min Est GFR ( Amer) Est GFR (Non-Af Amer) BUN/Creatinine Ratio (10-20) Glucose (70-99) mg/dl Calcium (8.5-10.1) mg/dl Phosphorus (2.5-4.9) mg/dl Magnesium (1.8-2.4) mg/dl Total Bilirubin (0.2-1) mg/dl AST (15-37) U/L ALT (12-78) U/L Alkaline Phosphatase (45-117) U/L Total Protein (6.4-8.2) gm/dl Albumin (3.4-5.0) gm/dl Globulin (2.5-4.0) gm/dl Albumin/Globulin Ratio (0.9-2) Lipase (73-393) U/L Stool Occult Bld Scrn (Negative) Stl Yersinia Cult Final SEE NOTE PG Care Time/CCT Total # of Minutes Spent Total Time Spent with Patient: Total time spent is greater than 50% in coordination of care (as documented) at patient's floor/unit and/or counseling patient: Coding Level of Care Code 13093 Subseq Hosp Care Lvl 2 Diagnoses Enteritis K52.9 Ulcerative colitis K51.018 Digestive disease complication type: other complication Ulcerative colitis location: ulcerative pancolitis Hypothyroid E03.9 Spondyloarthritis M47.819 Hypomagnesemia E83.42 Hypokalemia E87.6 DVT prophylaxis Z29.9 (1) Ulcerative colitis Digestive disease complication type: other complication Ulcerative colitis location: ulcerative pancolitis Qualified Code(s): K51.018 - Ulcerative (chronic) pancolitis with other complication
[2020-03-16] MEDS: CALCIUM CARBONATE 1250MG TAB PO SCH (21:51)
[2020-03-17] MEDS: MoRPHine SULFATE 2 MG/ML CARP IV PRN ×4 (00:41→18:26)
[2020-03-17] MEDS: TIROSINT 150 MCG PO SCH (05:24)
[2020-03-17] MEDS: OMEPRAZOLE 20 MG CAPCR PO SCH (05:25)
[2020-03-17 06:49] LABS: Hemoglobin 11.5 g/dL (12.0-16.0); Mean Corpuscular Hemoglobin 28.8 pg (25-34); Mean Corpuscular Hgb Conc 31.9 g/dL (32-36); Platelet Count 358 K/uL (130-400); RDW Coefficient of Variation 12.8 % (11.5-14.5); RDW Standard Deviation 41.8 fL (36.4-46.3); White Blood Count 14.98 K/uL (4.8-10.8)
[2020-03-17 07:21] LABS: Albumin Level 2.6 gm/dl (3.4-5.0); BUN Creatinine Ratio 5.8 (10-20); Bilirubin Direct 0.1 mg/dl (0-0.2); Calcium 8.5 mg/dl (8.5-10.1); Creatinine Clr Calc Pharmacy 91.8 ml/min; Est GFR (African American) 108.3; Est GFR (Non-African American) 93.4; Potassium 3.5 mmol/L (3.5-5.1)
[2020-03-17 07:24] LABS: Bilirubin,Total 0.5 mg/dl (0.2-1); Total Protein 6.1 gm/dl (6.4-8.2)
--- NOTE | 2020-03-17 07:53 | Ultrasound Report ---
ABDOMINAL ULTRASOUND, RIGHT UPPER QUADRANT HISTORY: elevated LFTs, enteritis, anemia. COMPARISON: Abdomen and pelvis CT 03/11/2020. FINDINGS: Pancreas: The pancreatic tail is obscured by overlying bowel gas. The remaining portions of the pancr eas are within normal limits. Liver: No hepatic masses. Pneumobilia is again noted. This is likely due to the patient's postcholecy stectomy state. Gallbladder: The gallbladder is surgically absent. CBD: 3 mm. Right kidney: No hydronephrosis. IMPRESSION: 1. Prior cholecystectomy. 2. Stable pneumobilia. ACT 112: Negative or not required by law. Electronically signed by: Ollie Castillo M.D. 03/17/2020 7:52 AM
[2020-03-17] MEDS: ARTIFICIAL TEARS OP OINT 3.5 GM TUBE OP SCH ×2 (07:59→20:25)
[2020-03-17] MEDS: APRISO 0.375 GM PO SCH (08:00)
[2020-03-17] MEDS: FLUOXETINE HCL 20 MG CAP PO SCH (08:00)
[2020-03-17] MEDS: CALCIUM 600MG + VIT D 400 IU TAB PO SCH ×3 (08:01→20:23)
[2020-03-17] MEDS: DICYCLOMINE HCL 10 MG CAP PO SCH ×4 (08:02→20:24)
[2020-03-17] MEDS: CHOLECALCIFEROL 1,000 UNITS 25 MCG TAB PO SCH ×2 (08:03→20:24)
[2020-03-17] MEDS ORDERED: predniSONE 10 MG TABLET PO SCH (09:00)
[2020-03-17] MEDS ORDERED: predniSONE 5 MG TAB PO SCH (09:00)
[2020-03-17] MEDS: PROCHLORPERAZINE 10 MG in SYRINGE 8 ML IV PRN (10:21)
--- NOTE | 2020-03-17 16:02 | Hospitalist Progress Note ---
Date of Service March 17, 2020 Assessment & Plan (1) Enteritis: * CT a/p on 03/11 showed mildly dilated fluid-filled small bowel loops demonstrating wall thickening; consistent with enteritis or partial SBO. * Discussed with [facility] GI who feel that CMV or cryptosporidium, etc. are a concern * samples of common and less common GI bugs ordered and collected on 03/12 --> no e.coli, salmonella, shigella, campylobacter on stool culture. Yersinia sample was rejected and not yet recollected. Giardia and cryptosporidium are pending * Colonoscopy on 03/13 with diffuse irritation and ulcerations. Biopsies taken as well as stool aspirate --> negative for CMV and consistent with ulcerative colitis * Continues with abdominal pain and loose stool although is improving and tolerating regular diet-encouraged her to wean off morphine * Trial of low-dose tramadol as needed for pain but encouraged her to not use this long-term * Continue antiemetics as needed * Starting back on high-dose steroids with IV Solu-Medrol 40 mg IV every 12 hours and then will go to 8-week taper of prednisone starting with 40 mg daily and going down by 10 mg every 2 weeks * Follow-up with GI as an outpatient, will be likely starting Stelara once approved. She will no longer take Xeljanz as originally planned for her ankylosing spondylitis as she is hesitant to take the higher dose of this which is required for ulcerative colitis due to a risk of VTE (2) Ulcerative colitis: * Long-standing on multiple immune-modulating medications in her past. 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 It is believed that this may be contributing to patient's current symptoms. Will be starting Stelara again as above. Colonoscopy here confirms significant flare of ulcerative colitis. Follows with Gabriela Trevizo ([facility]) (c: [phone]). * Continue follow-up with GI * Starting IV Solu-Medrol as above and then prednisone taper * Continue on vitamin D and calcium but moved to the evening dose so as not to interfere with her levothyroxine (3) Hypothyroid: * Hx of thyroid cancer, s/p removal. * Continue levothyroxine 150 mcg daily. (4) Spondyloarthritis: * Follows with primer waterproofing machine operator (Iris Nix) at [facility]. Patient began Cosentyx injections beginning in December 13, 2019, last injection February 07, 2020. However, she will not discontinued this as she feels it created a flare of her ulcerative colitis * Discontinue Celebrex due to flare of ulcerative colitis * Her primer waterproofing machine operator is Dr. Nix-[facility] transfer line ([phone]) (5) Hypomagnesemia: * Replaced and resolved (6) Hypokalemia: * Replaced and resolved (7) Upper back pain: Trial of Robaxin (8) DVT prophylaxis: * SCDs -ambulation * Disposition-continued stay but hopeful for discharged home tomorrow if pain improved and tolerating diet Admission and Anticipated Discharge Date Admission Date: March 12, 2020 Subjective Patient reports she was able to eat regular food for breakfast and lunch today but did have an episode of loose nonbloody stool after breakfast. She is continuing to have sharp pains in the lower abdomen but are slightly improved. Took 1 dose of IV morphine and Compazine this morning. No longer having any right upper quadrant pain. Denies nausea or vomiting. She inquires about a trial of Marinol, but after I discussed the case with GI and they recommended against Marinol, she decided not to do this. She is agreeable to starting high-dose steroids now that infectious causes have been ruled out. Review of Systems Review of Systems: All systems reviewed & are unremarkable except as noted in HPI & below Having muscle tightness across her upper back and requesting a muscle relaxer. She has tried warm compresses and ice without any improvement Physical Exam Constitutional: WD/WN, vitals as above Eyes: + anicteric sclerae ENMT: external ear and nose normal, oropharynx normal Neck: trachea midline, no thyromegaly Respiratory: normal respiratory effort, lungs clear to auscultation Cardiovascular: RRR, no murmur, no edema Chest (Breasts): Chest: normal inspection of chest Gastrointestinal (Abdomen): Inspection/Auscultation: normal bowel sounds; abdomen not distended Percussion/Palpation: + abdomen tender (Across lower abdomen and periumbilical area without guarding or rebound) and abdomen soft Musculoskeletal: Extremities: extremities normal to inspection; no cyanosis and no clubbing Skin: no rashes, warm and dry Neurologic: moves all extremities and awake; no focal motor deficits Psychiatric: A+Ox3, euthymic affect Lymphatic: no lymphedema Results & Data Results & Data ([facility]) Vital Signs (Past 12 Hours) Vital Signs Temp Pulse Resp BP Pulse Ox 03/17/20 07:41 36.7 C 99 H 16 107/74 97 Laboratory Results 03/17/20 03/17/20 Range/Units 06:06 06:06 WBC 14.98 H (4.8-10.8) K/uL RBC 4.00 L (4.2-5.4) M/uL Hgb 11.5 L (12.0-16.0) g/dL Hct 36.0 L (37-47) % MCV 90.0 (80-100) fL MCH 28.8 (25-34) pg MCHC 31.9 L (32-36) g/dL RDW Std Deviation 41.8 (36.4-46.3) fL RDW Coeff of Chaim 12.8 (11.5-14.5) % Plt Count 358 (130-400) K/uL MPV 9.0 (7.4-10.4) fL Sodium 138 (136-145) mmol/L Potassium 3.5 (3.5-5.1) mmol/L Chloride 107 (98-107) mmol/L Carbon Dioxide 26 (21-32) mmol/L Anion Gap 5.0 (3-11) BUN 5 L (7-18) mg/dl Creatinine 0.81 (0.6-1.2) mg/dl Est Cr Clr Drug Dosing 91.8 ml/min Est GFR ( Amer) 108.3 Est GFR (Non-Af Amer) 93.4 BUN/Creatinine Ratio 5.8 L (10-20) Glucose 78 (70-99) mg/dl Calcium 8.5 (8.5-10.1) mg/dl Total Bilirubin 0.5 (0.2-1) mg/dl Direct Bilirubin 0.1 (0-0.2) mg/dl AST 56 H (15-37) U/L ALT 143 H (12-78) U/L Alkaline Phosphatase 209 H (45-117) U/L Total Protein 6.1 L (6.4-8.2) gm/dl Albumin 2.6 L (3.4-5.0) gm/dl PG Care Time/CCT Total # of Minutes Spent Total Time Spent with Patient: Total time spent is greater than 50% in coordination of care (as documented) at patient's floor/unit and/or counseling patient: Coding Level of Care Code 75519 Subseq Hosp Care Lvl 3 Diagnoses Enteritis K52.9 Ulcerative colitis K51.018 Digestive disease complication type: other complication Ulcerative colitis location: ulcerative pancolitis Hypothyroid E03.9 Spondyloarthritis M47.819 Hypomagnesemia E83.42 Hypokalemia E87.6 Upper back pain M54.9 DVT prophylaxis Z29.9 (1) Ulcerative colitis Digestive disease complication type: other complication Ulcerative colitis location: ulcerative pancolitis Qualified Code(s): K51.018 - Ulcerative (chronic) pancolitis with other complication
[2020-03-17] MEDS ORDERED: METHOCARBAMOL 500 MG TABLET PO PRN ×2 (16:10→17:44)
[2020-03-17] MEDS: methylPREDNISolone 40 MG in SYRINGE 0 ML IV SCH (17:22)
[2020-03-18] MEDS: methylPREDNISolone 40 MG in SYRINGE 0 ML IV SCH ×2 (05:51→16:35)
[2020-03-18] MEDS: TIROSINT 150 MCG PO SCH (05:53)
[2020-03-18] MEDS: OMEPRAZOLE 20 MG CAPCR PO SCH (05:54)
[2020-03-18] MEDS: DICYCLOMINE HCL 10 MG CAP PO SCH ×4 (08:58→20:05)
[2020-03-18] MEDS: APRISO 0.375 GM PO SCH (08:59)
[2020-03-18] MEDS: ARTIFICIAL TEARS OP OINT 3.5 GM TUBE OP SCH ×2 (08:59→20:05)
[2020-03-18] MEDS: FLUOXETINE HCL 20 MG CAP PO SCH (08:59)
--- NOTE | 2020-03-18 10:44 | History & Physical Bridge Note ---
Date of Service March 18, 2020 History & Physical Bridge Note Patient's outpatient stool studies ordered by her Primary GI on 03/09 tested positive for a Blastocystis species. Unclear whether this is influencing her current symptoms, but given her immunosuppression will treat with Flagyl 750 g TID x 5 days. Discussed with patient that the remainder of infectious work-up has been negative thus far with only cryptosporidium still pending. Biopsies results indicated chronic/active UC. Disease likely worsened by recent Cosentyx. Continue Steroids. On discharge, would recommend a taper beginning at 40 mg daily and decreasing by 5 mg each week for a total of 8 weeks. Recommend a calcium & vitamin D supplement to be taken as well. Given the complexity of her disease and the impending need to restart biologic therapy, would advise outpatient follow-up with her primary GI at [facility]. We will sign off at this time.
--- NOTE | 2020-03-18 13:40 | History & Physical Bridge Note ---
Date of Service March 18, 2020 History & Physical Bridge Note Received a call from hospital. Patient refusing Metronidazole. Tinidazole is an acceptable alternative to be given once at a dose of 2 gm, but note this is non- formulary at [facility].
[2020-03-18] MEDS ORDERED: metroNIDAZOLE 250 MG TAB PO SCH (14:00)
[2020-03-18] MEDS: MoRPHine SULFATE 2 MG/ML CARP IV PRN (14:13)
--- NOTE | 2020-03-18 15:26 | Hospitalist Progress Note ---
Date of Service March 18, 2020 Assessment & Plan (1) Enteritis: * Presented with worsening lower abdominal pain and diarrhea * CT a/p on 03/11 showed mildly dilated fluid-filled small bowel loops demonstrating wall thickening; consistent with enteritis or partial SBO. * Discussed with [facility] who feel that CMV or cryptosporidium, etc. are a concern * Stool studies collected on 03/12 --> no e.coli, salmonella, shigella, campylobacter on stool culture. Yersinia sample was rejected and not rec ollected. Giardia and cryptosporidium are now negative. * [facility] contacted GI at [facility] on 03/18 and reported that her stool culture there from 03/09 was growing a Blastocystis species-given immunosuppression, have elected to treat with metronidazole 750 mg IV/p.o. 3 times daily-we will go with IV as patient reports intolerance to p.o. metronidazole * Colonoscopy on 03/13 with diffuse irritation and ulcerations. Biopsies taken as well as stool aspirate --> negative for CMV and consistent with acute on chronic ulcerative colitis * Continues with lower abdominal pain and loose stools frequently-still requiring IV morphine but is willing to try p.o. tramadol, continue Compazine and Zofran as needed * Now that infection is ruled out, she was started back on high-dose steroids with IV Solu-Medrol 40 mg IV every 12 hours and then will go to 8-week taper of prednisone starting with 40 mg daily and going down by 5 mg every 1 weeks over an 8-week course * Follow-up with GI as an outpatient, will be likely starting Stelara once approved. She will no longer take Xeljanz as originally planned for her ankylosing spondylitis as she is hesitant to take the higher dose of this which is required for ulcerative colitis due to a risk of VTE (2) Ulcerative colitis: * Long-standing on multiple immune-modulating medications in her past. 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 It is believed that this may be contributing to patient's current symptoms. Will be starting Stelara again as above. Colonoscopy here confirms significant flare of ulcerative colitis. Follows with Gabriela Trevizo ([facility]) (c: [phone]). * Continue follow-up with GI * Started IV Solu-Medrol as above and then prednisone taper * Continue on vitamin D and calcium but moved to the evening dose so as not to interfere with her levothyroxine (3) Hypothyroid: * Hx of thyroid cancer, s/p removal. * Continue levothyroxine 150 mcg daily. (4) Spondyloarthritis: * Follows with grassroots organizer (Iris Nix) at [facility]. Patient began Cosentyx injections beginning in December 13, 2019, last injection February 07, 2020. However, she will not discontinued this as she feels it created a flare of her ulcerative colitis * Discontinue Celebrex due to flare of ulcerative colitis * Her grassroots organizer is Dr. Nix-[facility] transfer line ([phone]) (5) Hypomagnesemia: * Replaced and resolved (6) Hypokalemia: * Replaced and resolved (7) Upper back pain: Trial of Robaxin for muscle spasm and is now completely resolved (8) Allergic rhinitis: Restart home Claritin (9) DVT prophylaxis: * SCDs -ambulation * Disposition-continued stay for persistent lower abdominal pain requiring IV pain medication Admission and Anticipated Discharge Date Admission Date: March 12, 2020 Subjective Pt reports still having lower abd pain today worse than yesterday since she started having more soft stools rather than watery stools with changing to regular diet. Apparently a Blastocystis species grew out of her stool cxs from 03/09 at [facility] and they contacted GI here start her on p.o. metronidazole. Patient reports that she always ends up getting very nauseated and vomiting after several days of p.o. metronidazole, but she is willing to try IV metronidazole. She is also having increased sinus congestion as she has not received her Claritin since admission and requests that this be restarted. Review of Systems Review of Systems: All systems reviewed & are unremarkable except as noted in HPI & below Physical Exam Constitutional: WD/WN, vitals as above Eyes: + anicteric sclerae Neck: trachea midline, no thyromegaly Respiratory: normal respiratory effort; no labored breathing Cardiovascular: Extremities: no edema Chest (Breasts): Chest: normal inspection of chest Gastrointestinal (Abdomen): Inspection/Auscultation: abdomen not distended Percussion/Palpation: + abdomen tender (Across lower abdomen and periumbilical area without guarding or rebound) and abdomen soft Musculoskeletal: Extremities: extremities normal to inspection; no cyanosis and no clubbing Skin: no rashes, warm and dry Neurologic: moves all extremities and awake; no focal motor deficits Psychiatric: A+Ox3, euthymic affect Lymphatic: no lymphedema Results & Data Results & Data ([facility]) Vital Signs (Past 12 Hours) Vital Signs Temp Pulse Resp BP BP Pulse Ox 03/18/20 15:08 37.0 C 65 17 107/70 95 03/18/20 07:00 36.4 C L 84 16 94/58 L 97 Laboratory Results 03/13/20 03/13/20 Range/Units Unknown Unknown Stl Cryptosporidium Ag SEE NOTE Giardia Antigen SEE NOTE SEE NOTE PG Care Time/CCT Total # of Minutes Spent Total Time Spent with Patient: Total time spent is greater than 50% in coordination of care (as documented) at patient's floor/unit and/or counseling p atient: Coding Level of Care Code 24299 Subseq Hosp Care Lvl 3 Diagnoses Enteritis K52.9 Ulcerative colitis K51.018 Ulcerative colitis location: ulcerative pancolitis Digestive disease complication type: other complication Hypothyroid E03.9 Spondyloarthritis M47.819 Hypomagnesemia E83.42 Hypokalemia E87.6 Upper back pain M54.9 Allergic rhinitis J30.9 DVT prophylaxis Z29.9 (1) Ulcerative colitis Ulcerative colitis location: ulcerative pancolitis Digestive disease complication type: other complication Qualified Code(s): K51.018 - Ulcerative (chronic) pancolitis with other complication
[2020-03-18] MEDS ORDERED: metroNIDAZOLE 500 MG/100 ML BAG IV SCH (15:30)
[2020-03-18] MEDS: TRAMADOL HCL 50 MG TABLET PO PRN ×2 (15:43→23:21)
[2020-03-18] MEDS ORDERED: METRONIDAZOLE IV SCH (16:00)
[2020-03-18] MEDS: LORATADINE 10 MG TAB PO SCH (16:34)
[2020-03-18] MEDS: METRONIDAZOLE IV SCH ×2 (16:35→23:22)
[2020-03-18] MEDS: CALCIUM 600MG + VIT D 400 IU TAB PO SCH (20:04)
[2020-03-18] MEDS: CHOLECALCIFEROL 1,000 UNITS 25 MCG TAB PO SCH (20:05)
[2020-03-19] MEDS: MoRPHine SULFATE 2 MG/ML CARP IV PRN ×2 (05:32→18:04)
[2020-03-19] MEDS: TIROSINT 150 MCG PO SCH (05:32)
[2020-03-19] MEDS: OMEPRAZOLE 20 MG CAPCR PO SCH (05:32)
[2020-03-19] MEDS: methylPREDNISolone 40 MG in SYRINGE 0 ML IV SCH ×2 (05:32→15:51)
[2020-03-19 06:22] LABS: Basophils # (auto) 0.01 K/uL (0-0.2); Hematocrit (blood only) 36.3 % (37-47); Hemoglobin 12.3 g/dL (12.0-16.0); Immature Granulocytes # (auto) 0.08 K/uL (0.00-0.02); Immature Granulocytes % (auto) 0.4 %; Lymphocytes # (auto) 1.54 K/uL (1.2-3.4); Lymphocytes % (auto) 7.3 %; Mean Corpuscular Hemoglobin 29.9 pg (25-34); Mean Corpuscular Hgb Conc 33.9 g/dL (32-36); Mean Corpuscular Volume 88.3 fL (80-100); Mean Platelet Volume 9.6 fL (7.4-10.4); Monocytes % (auto) 5.7 %; Neutrophils # (auto) 18.13 K/uL (1.4-6.5); Neutrophils % (auto) 86.6 %; Platelet Count 398 K/uL (130-400); RDW Coefficient of Variation 12.7 % (11.5-14.5); RDW Standard Deviation 41.1 fL (36.4-46.3); Red Blood Count 4.11 M/uL (4.2-5.4); White Blood Count 20.96 K/uL (4.8-10.8)
[2020-03-19 06:51] LABS: Albumin Level 2.7 gm/dl (3.4-5.0); BUN Creatinine Ratio 11.5 (10-20); Bilirubin Direct 0.1 mg/dl (0-0.2); Calcium 8.8 mg/dl (8.5-10.1); Creatinine Clr Calc Pharmacy 109.4 ml/min; Est GFR (African American) 130.4; Est GFR (Non-African American) 112.5; Magnesium 1.7 mg/dl (1.8-2.4); Potassium 3.6 mmol/L (3.5-5.1)
[2020-03-19 06:54] LABS: Bilirubin,Total 0.6 mg/dl (0.2-1); Total Protein 6.6 gm/dl (6.4-8.2)
[2020-03-19] MEDS: FLUOXETINE HCL 20 MG CAP PO SCH (08:54)
[2020-03-19] MEDS: ARTIFICIAL TEARS OP OINT 3.5 GM TUBE OP SCH ×2 (08:54→19:54)
[2020-03-19] MEDS: DICYCLOMINE HCL 10 MG CAP PO SCH ×4 (08:54→19:54)
[2020-03-19] MEDS: LORATADINE 10 MG TAB PO SCH (08:55)
[2020-03-19] MEDS: APRISO 0.375 GM PO SCH (08:55)
[2020-03-19] MEDS: METRONIDAZOLE IV SCH ×2 (09:20→15:51)
[2020-03-19] MEDS ORDERED: MAGNESIUM SULFATE / D5W 1 GM/100 ML BAG IV ONE (11:00)
[2020-03-19] MEDS: TRAMADOL HCL 50 MG TABLET PO PRN ×2 (15:50→22:45)
--- NOTE | 2020-03-19 17:26 | Hospitalist Progress Note ---
Date of Service March 19, 2020 Assessment & Plan (1) Enteritis: * Presented with worsening lower abdominal pain and diarrhea after a recent hospital stay at [facility] for sharp stabbing right upper quadrant pain and had a normal MRCP there. * CT a/p on 03/11 showed mildly dilated fluid-filled small bowel loops demonstrating wall thickening; consistent with enteritis or partial SBO. * Discussed with [facility] GI who feel that CMV or cryptosporidium, etc. are a concern * Stool studies collected on 03/12 --> no e.coli, salmonella, shigella, campylobacter on stool culture. Yersinia sample was rejected and not recollected. Giardia and cryptosporidium are now negative. * [facility] contacted GI at [facility] on 03/18 and reported that her stool culture there from 03/09 was growing a Blastocystis species-given immunosuppression, have elected to treat with metronidazole 750 mg IV/p.o. 3 times daily-we are treating with IV as patient reports intolerance to p.o. metronidazole * Colonoscopy on 03/13 with diffuse irritation and ulcerations. Biopsies taken as well as stool aspirate --> negative for CMV and consistent with acute on chronic ulcerative colitis * Continues with lower abdominal pain but now diarrhea has stopped-still requiring IV morphine * -Increase tramadol to 100 mg p.o. every 6 hours as needed for pain * continue Compazine as needed for nausea * Now that infection is ruled out, she was started back on high-dose steroids with IV Solu-Medrol 40 mg IV every 12 hours and then will go to 8-week taper of prednisone starting with 40 mg daily and going down by 5 mg every 1 weeks over an 8-week course * Follow-up with GI as an outpatient, will be likely starting Stelara once a pproved. She will no longer take Xeljanz as originally planned for her ankylosing spondylitis as she is hesitant to take the higher dose of this which is required for ulcerative colitis due to a risk of VTE * Slowly improving since starting high-dose steroids-needs more time in the hospital for pain control (2) Ulcerative colitis: * Long-standing on multiple immune-modulating medications in her past. 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 It is believed that this may be contributing to patient's current symptoms. Will be starting Stelara again as above. Colonoscopy here confirms significant flare of ulcerative colitis. Follows with Gabriela Trevizo ([facility]) (c: [phone]). * Continue follow-up with GI at [facility] * Started IV Solu-Medrol as above and then prednisone taper as above * Continue on vitamin D and calcium while on high-dose steroids * Pain control as above (3) Elevated LFTs: LFTs remain mildly elevated but slightly worse than yesterday. She has no right upper quadrant pain Could be medication side effect perhaps. Alkaline phosphatase could be elevated due to intestinal inflammation She had a recently normal MRCP in the last 2 weeks at [facility] and was told that her PSC was in remission Liver ultrasound here is without significant abnormality She is status post cholecystectomy Continue to follow LFTs Conveniently, she has a virtual visit already scheduled with her director of intercollegiate athletics at [facility] tomorrow during which she will bring up her lab results from here. I will follow-up with the patient to see what the recommendations are from [facility]. (4) Hypomagnesemia: * Magnesium mildly low today at 1.7 * Gave magnesium sulfate 1 g IV x1 (5) Hypokalemia: * Replaced and resolved (6) Upper back pain: Trial of Robaxin for muscle spasm and is now completely resolved (7) Spondyloarthritis: * Follows with oracle data warehouse developer (Iris Nix) at [facility]. Patient began Cosentyx injections beginning in December 13, 2019, last injection February 07, 2020. However, she will not discontinued this as she feels it created a flare of her ulcerative colitis * Discontinue Celebrex due to flare of ulcerative colitis * Her oracle data warehouse developer is Dr. Nix-[facility] transfer line ([phone]) (8) Hypothyroid: * Hx of thyroid cancer, s/p removal. * Continue levothyroxine 150 mcg daily. (9) Allergic rhinitis: -Continue home Claritin (10) DVT prophylaxis: * SCDs -ambulation * Disposition-continued stay for persistent lower abdominal pain requiring IV pain medication and for IV metronidazole for Blastocystis stool infection as she cannot tolerate p.o. metronidazole, hopeful for discharge to home on Monday Admission and Anticipated Discharge Date Admission Date: March 12, 2020 Subjective Patient reports some increased bloating today in the abdomen, and no bowel movement all day which now she feels is causing her abdominal pain to be worse. She is passing some flatus. Denies nausea or vomiting. She is tolerating a regular diet. She tried the tramadol 50 mg last night for pain and waited a while and it had no relief for her pain so she then took another dose of morphine. She would like to try a higher dose of tramadol to see if she can avoid taking morphine. She is also requesting that her medications that will be needed for discharge can be called into her pharmacy in advance of discharge because her pharmacy closes on Monday afternoons. She does not feel ready to go home yet. Review of Systems Review of Systems: All systems reviewed & are unremarkable except as noted in HPI & below Denies chest pains or shortness of breath Physical Exam Constitutional: WD/WN, vitals as above Eyes: + anicteric sclerae Neck: trachea midline, no thyromegaly Respiratory: normal respiratory effort, lungs clear to auscultation normal respiratory effort; no labored breathing Cardiovascular: RRR, no murmur, no edema Extremities: no edema Chest (Breasts): Chest: normal inspection of chest Gastrointestinal (Abdomen): Inspection/Auscultation: abdomen not distended Percussion/Palpation: + abdomen tender (Across lower abdomen and periumbilical area without guarding or rebound) and abdomen soft Musculoskeletal: Extremities: extremities normal to inspection; no cyanosis and no clubbing Skin: no rashes, warm and dry Neurologic: moves all extremities and awake; no focal motor deficits Psychiatric: A+Ox3, euthymic affect Lymphatic: no lymphedema Results & Data Results & Data ([facility]) Vital Signs (Past 12 Hours) Vital Signs Temp Pulse Resp BP Pulse Ox 03/19/20 15:54 36.7 C 70 16 110/72 97 03/19/20 07:32 36.8 C 77 16 107/72 97 Laboratory Results 03/19/20 03/19/20 03/12/20 Range/Units 05:38 05:38 20:25 WBC 20.96 H (4.8-10.8) K/uL RBC 4.11 L (4.2-5.4) M/uL Hgb 12.3 (12.0-16.0) g/dL Hct 36.3 L (37-47) % MCV 88.3 (80-100) fL MCH 29.9 (25-34) pg MCHC 33.9 (32-36) g/dL RDW Std Deviation 41.1 (36.4-46.3) fL RDW Coeff of Chaim 12.7 (11.5-14.5) % Plt Count 398 (130-400) K/uL MPV 9.6 (7.4-10.4) fL Immature Gran % (Auto) 0.4 % Neut % (Auto) 86.6 % Lymph % (Auto) 7.3 % [place] % (Auto) 5.7 % Eos % (Auto) 0.0 % Baso % (Auto) 0.0 % Neut # (Auto) 18.13 H (1.4-6.5) K/uL Lymph # (Auto) 1.54 (1.2-3.4) K/uL [place] # (Auto) 1.20 H (0.11-0.59) K/uL Eos # (Auto) 0.00 (0-0.5) K/uL Baso # (Auto) 0.01 (0-0.2) K/uL Immature Gran # (Auto) 0.08 H (0.00-0.02) K/uL Sodium 139 (136-145) mmol/L Potassium 3.6 (3.5-5.1) mmol/L Chloride 107 (98-107) mmol/L Carbon Dioxide 24 (21-32) mmol/L Anion Gap 8.0 (3-11) BUN 8 (7-18) mg/dl Creatinine 0.68 (0.6-1.2) mg/dl Est Cr Clr Drug Dosing 109.4 ml/min Est GFR ( Amer) 130.4 Est GFR (Non-Af Amer) 112.5 BUN/Creatinine Ratio 11.5 (10-20) Glucose 104 H (70-99) mg/dl Calcium 8.8 (8.5-10.1) mg/dl Magnesium 1.7 L (1.8-2.4) mg/dl Total Bilirubin 0.6 (0.2-1) mg/dl Direct Bilirubin 0.1 (0-0.2) mg/dl AST 61 H (15-37) U/L ALT 180 H (12-78) U/L Alkaline Phosphatase 209 H (45-117) U/L Total Protein 6.6 (6.4-8.2) gm/dl Albumin 2.7 L (3.4-5.0) gm/dl Stool Calprotectin 26 mcg/g PG Care Time/CCT Total # of Minutes Spent Total Time Spent with Patient: Total time spent is greater than 50% in coordination of care (as documented) at patient's floor/unit and/or counseling patient: Coding Level of Care Code 28178 Subseq Hosp Care Lvl 2 Diagnoses Enteritis K52.9 Ulcerative colitis K51.018 Digestive disease complication type: other complication Ulcerative colitis location: ulcerative pancolitis Elevated LFTs R79.89 Hypomagnesemia E83.42 Hypokalemia E87.6 Upper back pain M54.9 Spondyloarthritis M47.819 Hypothyroid E03.9 Allergic rhinitis J30.9 DVT prophylaxis Z29.9 (1) Ulcerative colitis Digestive disease complication type: other complication Ulcerative colitis location: ulcerative pancolitis Qualified Code(s): K51.018 - Ulcerative (chronic) pancolitis with other complication
[2020-03-19] MEDS ORDERED: ERGOCALCIFEROL 50,000 UNITS CAP PO ONE (18:00)
[2020-03-19] MEDS: CALCIUM 600MG + VIT D 400 IU TAB PO SCH (19:53)
[2020-03-19] MEDS: CHOLECALCIFEROL 1,000 UNITS 25 MCG TAB PO SCH (19:53)
[2020-03-20] MEDS: PROCHLORPERAZINE 10 MG in SYRINGE 8 ML IV PRN (00:05)
[2020-03-20] MEDS: MoRPHine SULFATE 2 MG/ML CARP IV PRN (00:05)
[2020-03-20] MEDS: METRONIDAZOLE IV SCH ×3 (00:06→15:39)
[2020-03-20] MEDS: TIROSINT 150 MCG PO SCH (05:41)
[2020-03-20] MEDS: methylPREDNISolone 40 MG in SYRINGE 0 ML IV SCH ×2 (05:41→16:52)
[2020-03-20] MEDS: OMEPRAZOLE 20 MG CAPCR PO SCH (05:42)
[2020-03-20] MEDS: LORATADINE 10 MG TAB PO SCH (08:54)
[2020-03-20] MEDS: DICYCLOMINE HCL 10 MG CAP PO SCH ×4 (08:54→21:37)
[2020-03-20] MEDS: FLUOXETINE HCL 20 MG CAP PO SCH (08:54)
[2020-03-20] MEDS: ARTIFICIAL TEARS OP OINT 3.5 GM TUBE OP SCH ×2 (08:54→21:37)
[2020-03-20] MEDS: APRISO 0.375 GM PO SCH (08:55)
[2020-03-20] MEDS: TRAMADOL HCL 50 MG TABLET PO PRN (15:38)
--- NOTE | 2020-03-20 18:09 | Hospitalist Progress Note ---
Date of Service March 20, 2020 Assessment & Plan (1) Enteritis: * Presented with worsening lower abdominal pain and diarrhea after a recent hospital stay at [facility] for sharp stabbing right upper quadrant pain and had a normal MRCP there. * CT a/p on 03/11 showed mildly dilated fluid-filled small bowel loops demonstrating wall thickening; consistent with enteritis or partial SBO. * Discussed with [facility] GI who feel that CMV or cryptosporidium, etc. are a concern * Stool studies collected on 03/12 --> no e.coli, salmonella, shigella, campylobacter on stool culture. Yersinia sample was rejected and not recollected. Giardia and cryptosporidium are now negative. * [facility] contacted GI at [facility] on 03/18 and reported that her stool culture there from 03/09 was growing a Blastocystis species-given immunosuppression, have elected to treat with metronidazole 750 mg IV/p.o. 3 times daily-we are treating with IV as patient reports intolerance to p.o. metronidazole-last day of treatment would be 03/22 * Colonoscopy on 03/13 with diffuse irritation and ulcerations. Biopsies taken as well as stool aspirate --> negative for CMV and consistent with acute on chronic ulcerative colitis * Continues with lower abdominal pain but now diarrhea has stopped-still requiring IV morphine, tramadol gave no relief * Discontinue tramadol and trial of oxycodone 5 mg p.o. every 4 hours as needed pain * continue Compazine as needed for nausea * Now that infection is ruled out, she was started back on high-dose steroids with IV Solu-Medrol 40 mg IV every 12 hours and then will go to 8-week taper of prednisone starting with 40 mg daily and going down by 5 mg every 1 weeks over an 8-week course * Follow-up with GI as an outpatient, will be likely starting Stelara once approved. She will no longer take Xeljanz as originally planned for her ankylosing spondylitis as she is hesitant to take the higher dose of this which is required for ulcerative colitis due to a risk of VTE * Slowly improving since starting high-dose steroids-needs more time in the hospital for pain control (2) Ulcerative colitis: * Long-standing on multiple immune-modulating medications in her past. 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 It is believed that this may be contributing to patient's current symptoms. Will be starting Stelara again as above. Colonoscopy here confirms significant flare of ulcerative colitis. Follows with Gabriela Trevizo ([facility]) (c: [phone]). * Continue follow-up with GI at [facility] * Started IV Solu-Medrol as above and then prednisone taper as above * Continue on vitamin D and calcium while on high-dose steroids * Pain control as above (3) Elevated LFTs: LFTs remain mildly elevated. She has no right upper quadrant pain Could be medication side effect perhaps. Alkaline phosphatase could be elevated due to intestinal inflammation She had a recently normal MRCP in the last 2 weeks at [facility] and was told that her PSC was in remission Liver ultrasound here is without significant abnormality She is status post cholecystectomy Continue to follow LFTs She completed a virtual visit today with her sales promotion coordinator at [facility] who felt that since her bilirubin is normal, that it was not related to PSC and wants to repeat blood work next week. (4) Hypomagnesemia: * Was replaced (5) Hypokalemia: * Replaced and resolved (6) Upper back pain: Trial of Robaxin for muscle spasm and is now completely resolved (7) Spondyloarthritis: * Follows with talkback host (Iris Nix) at [facility]. Patient began Cosentyx injections beginning in December 13, 2019, last injection February 07, 2020. However, she will not discontinued this as she feels it created a flare of her ulcerative colitis * Discontinue Celebrex due to flare of ulcerative colitis * Her talkback host is Dr. Nix-[facility] transfer line ([phone]) (8) Hypothyroid: * Hx of thyroid cancer, s/p removal. * Continue levothyroxine 150 mcg daily. (9) Allergic rhinitis: -Continue home Claritin (10) Urinary frequency: With new onset urinary frequency every 20 minutes with dark brown urine on 03/20 -Check urinalysis with reflex to urine culture and treat with antibiotics if positive (11) DVT prophylaxis: * SCDs -ambulation * Disposition-continued stay for persistent lower abdominal pain requiring IV pain medication and for IV metronidazole for Blastocystis stool infection as she cannot tolerate p.o. metronidazole, hopeful for discharge to home on Monday Admission and Anticipated Discharge Date Admission Date: March 12, 2020 Subjective Patient reports still having severe pain in the lower abdomen especially around 3 PM. She had enough pain last night that she can eat any dinner. She was able to eat some breakfast and lunch today but the pain was not controlled with tramadol 100 mg. She has no nausea today. She still has not had a bowel movement in 2 days but is passing flatus. She also reports that she has been urinating every 20 minutes today and her urine is dark in color almost brown. Review of Systems Review of Systems: All systems reviewed & are unremarkable except as noted in HPI & below Physical Exam Constitutional: WD/WN, vitals as above Eyes: + anicteric sclerae Neck: trachea midline, no thyromegaly Respiratory: normal respiratory effort, lungs clear to auscultation normal respiratory effort; no labored breathing Cardiovascular: RRR, no murmur, no edema Extremities: no edema Chest (Breasts): Chest: normal inspection of chest Gastrointestinal (Abdomen): Inspection/Auscultation: abdomen not distended Percussion/Palpation: + abdomen tender (Across lower abdomen and periumbilical area without guarding or rebound) and abdomen soft Musculoskeletal: Extremities: extremities normal to inspection; no cyanosis and no clubbing Skin: no rashes, warm and dry Neurologic: moves all extremities and awake; no focal motor deficits Psychiatric: A+Ox3, euthymic affect Lymphatic: no lymphedema Results & Data Results & Data ([facility]) Vital Signs (Past 12 Hours) Vital Signs Temp Pulse Resp BP BP Pulse Ox 03/20/20 15:33 36.9 C 65 16 117/79 98 03/20/20 07:11 36.7 C 77 16 102/69 97 Laboratory Results 03/12/20 Range/Units 20:25 Stl Cryptosporidium Ag SEE NOTE Stool Comments SEE NOTE A PG Care Time/CCT Total # of Minutes Spent Total Time Spent with Patient: Total time spent is greater than 50% in coordination of care (as documented) at patient's floor/unit and/or counseling patient: Coding Level of Care Code 89401 Subseq Hosp Care Lvl 2 Diagnoses Enteritis K52.9 Ulcerative colitis K51.018 Digestive disease complication type: other complication Ulcerative colitis location: ulcerative pancolitis Elevated LFTs R79.89 Hypomagnesemia E83.42 Hypokalemia E87.6 Upper back pain M54.9 Spondyloarthritis M47.819 Hypothyroid E03.9 Allergic rhinitis J30.9 Urinary frequency R35.0 DVT prophylaxis Z29.9 (1) Ulcerative colitis Digestive disease complication type: other complication Ulcerative colitis location: ulcerative pancolitis Qualified Code(s): K51.018 - Ulcerative (chronic) pancolitis with other complication
[2020-03-20] MEDS: OXYCODONE HCL IR 5 MG TAB (IMMEDIATE RELEASE) PO PRN (18:49)
[2020-03-20] MEDS: CHOLECALCIFEROL 1,000 UNITS 25 MCG TAB PO SCH (21:37)
[2020-03-20] MEDS: CALCIUM 600MG + VIT D 400 IU TAB PO SCH (21:37)
[2020-03-20 22:43] LABS: Appearance Urine Clear (Clear); Bilirubin Urine Negative (Negative); Blood Urine 2+ (Negative); Color Urine Yellow; Glucose Urine UA Negative (Negative); Ketones Urine Negative (Negative); Leukocyte Esterase Urine Negative (Negative); Nitrite Urine Negative (Negative); Protein Urine Negative (Negative); Urobilinogen Urine Negative (Negative); pH Urine 6.5 (4.5-7.5)
[2020-03-20 23:17] LABS: Bacteria Urine 1+ (Negative); WBC Urine 0-5 /hpf (0-5)
[2020-03-21] MEDS: METRONIDAZOLE IV SCH ×3 (01:02→16:22)
[2020-03-21] MEDS: methylPREDNISolone 40 MG in SYRINGE 0 ML IV SCH ×3 (02:54→20:20)
[2020-03-21] MEDS: OXYCODONE HCL IR 5 MG TAB (IMMEDIATE RELEASE) PO PRN ×3 (02:54→14:58)
[2020-03-21] MEDS: OMEPRAZOLE 20 MG CAPCR PO SCH (05:21)
[2020-03-21] MEDS: TIROSINT 150 MCG PO SCH (05:21)
[2020-03-21 06:24] LABS: Basophils # (auto) 0.01 K/uL (0-0.2); Basophils % (auto) 0.1 %; Hematocrit (blood only) 37.7 % (37-47); Hemoglobin 12.7 g/dL (12.0-16.0); Immature Granulocytes # (auto) 0.09 K/uL (0.00-0.02); Immature Granulocytes % (auto) 0.5 %; Lymphocytes # (auto) 0.91 K/uL (1.2-3.4); Lymphocytes % (auto) 4.9 %; Mean Corpuscular Hemoglobin 30.2 pg (25-34); Mean Corpuscular Hgb Conc 33.7 g/dL (32-36); Mean Corpuscular Volume 89.5 fL (80-100); Mean Platelet Volume 9.5 fL (7.4-10.4); Monocytes # (auto) 0.85 K/uL (0.11-0.59); Monocytes % (auto) 4.6 %; Neutrophils # (auto) 16.82 K/uL (1.4-6.5); Neutrophils % (auto) 89.9 %; Platelet Count 366 K/uL (130-400); RDW Coefficient of Variation 12.6 % (11.5-14.5); RDW Standard Deviation 40.8 fL (36.4-46.3); Red Blood Count 4.21 M/uL (4.2-5.4); White Blood Count 18.68 K/uL (4.8-10.8)
[2020-03-21 06:46] LABS: Albumin Level 3.1 gm/dl (3.4-5.0); BUN Creatinine Ratio 10.6 (10-20); Bilirubin Direct 0.2 mg/dl (0-0.2); Bilirubin,Total 0.7 mg/dl (0.2-1); Est GFR (African American) 109.9; Est GFR (Non-African American) 94.9; Potassium 3.6 mmol/L (3.5-5.1)
[2020-03-21] MEDS: ARTIFICIAL TEARS OP OINT 3.5 GM TUBE OP SCH ×2 (09:13→20:53)
[2020-03-21] MEDS: LORATADINE 10 MG TAB PO SCH (09:13)
[2020-03-21] MEDS: DICYCLOMINE HCL 10 MG CAP PO SCH ×4 (09:13→20:53)
[2020-03-21] MEDS: FLUOXETINE HCL 20 MG CAP PO SCH (09:13)
[2020-03-21] MEDS: APRISO 0.375 GM PO SCH (09:14)
--- NOTE | 2020-03-21 11:00 | Magnetic Resonance Report ---
MR MRCP CLINICAL HISTORY: Elevated liver function test. History of sclerosing cholangitis. Ulcerative colitis . COMPARISON STUDY: CT scan dated 03/11/2020, ultrasound dated 03/16/2020 FINDINGS: A breath-hold MRCP was performed. MIP images were acquired. The gallbladder is surgically absent. There is no pancreatic or biliary ductal dilatation. Scattered ductal filling defects, are likely secondary to air given the prior pneumobilia identified on CT scanning. There is a filling defect within the distal cystic duct which may represent an air bu bble. There are probable intrahepatic biliary structures. The presence of pneumobilia, makes evaluation mor e difficult. IMPRESSION: 1. No evidence of significant ductal dilatation 2. Ductal filling defects, possibly secondary to air bubbles given the patient's known pneumobilia 3. Probable intrahepatic biliary strictures. ACT 112: Negative or not required by law. Electronically signed by: Missael Remy M.D. 03/21/2020 10:59 AM
--- NOTE | 2020-03-21 16:24 | Gastroenterology Progress Note ---
Date of Service March 21, 2020 Assessment & Plan Admission and Anticipated Discharge Date Admission Date: March 12, 2020 Subjective I have seen and examined the patient today, complex multi autoimmune diseases including PSC and UC. Admitted with abdominal pain and being treated for possible UC flare with Steroids however her LFTs are trending up since admission, AST/ALT/ALP but normal bilirubin, she had elevated WBC on admission and RUQ pain/tenderness. She is s/p cholecystectomy due to cystic duct stricture per patient. She had many ERCPs in the past. Also reports she was once found to have a cyst/nodule in her CBD and Bx showed PSC. On exam abdomen is soft, +RUQ tenderness. Labs reviewed MRCP showed filing defect in mid CBD near the cystic duct take off. CBD nondilated. Intrahepatic stricturing disease. Recommend: ERCP however patient wants to think about it, she is concerned about post ERCP pancreatitis as she had it twice in the past. Keep NPO after midnight and get LFTs tomorrow, I will see the patient and if she agrees will do ERCP tomorrow. Results & Data ([facility]) Vital Signs (Past 12 Hours) Vital Signs Temp Pulse Resp BP BP Pulse Ox 03/21/20 16:14 36.8 C 71 17 112/74 96 03/21/20 06:53 36.5 C 61 16 116/75 97
--- NOTE | 2020-03-21 18:41 | Hospitalist Progress Note ---
Date of Service March 21, 2020 Assessment & Plan (1) Enteritis: * Presented with worsening lower abdominal pain and diarrhea after a recent hospital stay at [facility] for sharp stabbing right upper quadrant pain and had a normal MRCP there. * CT a/p on 03/11 showed mildly dilated fluid-filled small bowel loops demonstrating wall thickening; consistent with enteritis or partial SBO. * Discussed with [facility] who feel that CMV or cryptosporidium, etc. are a concern * Stool studies collected on 03/12 --> no e.coli, salmonella, shigella, campylobacter on stool culture. Yersinia sample was rejected and not recollected. Giardia and cryptosporidium are now negative. * [facility] contacted GI at [facility] on 03/18 and reported that her stool culture there from 03/09 was growing a Blastocystis species-given immunosuppression, have elected to treat with metronidazole 750 mg IV/p.o. 3 times daily-we are treating with IV as patient reports intolerance to p.o. metronidazole-last day of treatment would be 03/22 * Colonoscopy on 03/13 with diffuse irritation and ulcerations. Biopsies taken as well as stool aspirate --> negative for CMV and consistent with acute on chronic ulcerative colitis * Continues with lower abdominal pain but now diarrhea has stopped-was requiring frequent IV morphine, tramadol gave no relief * continue oxycodone 5 mg p.o. every 4 hours as needed for pain which is working well * continue Compazine as needed for nausea * Now that infection is ruled out, she was started back on high-dose steroids with IV Solu-Medrol 40 mg IV every 12 hours and then will go to 8-week taper of prednisone starting with 40 mg daily and going down by 5 mg every 1 weeks over an 8-week course * Follow-up with GI as an outpatient, will be likely starting Stelara once approved. She will no longer take Xeljanz as originally planned for her ankylosing spondylitis as she is hesitant to take the higher dose of this which is required for ulcerative colitis due to a risk of VTE * Slowly improving since starting high-dose steroids-needs more time in the hospital for pain control (2) Ulcerative colitis: * Long-standing on multiple immune-modulating medications in her past. 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 It is believed that this may be contributing to patient's current symptoms. Will be starting Stelara again as above. Colonoscopy here confirms significant flare of ulcerative colitis. Follows with Gabriela Trevizo ([facility]) (c: [phone]). * Continue follow-up with GI at [facility] * Started IV Solu-Medrol as above and then prednisone taper as above * Continue on vitamin D and calcium while on high-dose steroids * Pain control as above (3) Elevated LFTs: LFTs now significantly elevated acutely today. TBili remains normal but AST and ALT high No RUQ pain. 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 Patient began Cosentyx injections beginning in December 13, 2019, last injection February 07, 2020. However, she will not discontinued this as she feels it created a flare of her ulcerative colitis * Discontinue Celebrex due to flare of ulcerative colitis * Her rapid extractor operator is Dr. Nix-[facility] transfer line ([phone]) (8) Hypothyroid: * Hx of thyroid cancer, s/p removal. * Continue levothyroxine 150 mcg daily. (9) Allergic rhinitis: -Continue home Claritin (10) Urinary frequency: With new onset urinary frequency with dark brown urine on 03/20 -UA with 2+ blood and RBCs, but with 10-20 epis and bacteria indicating contamination--> NO INFECTION (11) DVT prophylaxis: * SCDs -ambulation * Disposition-continued stay for persistent lower abdominal pain requiring IV pain medication and for IV metronidazole for Blastocystis stool infection as she cannot tolerate p.o. metronidazole, and now for ERCP for CBD stones Admission and Anticipated Discharge Date Admission Date: March 12, 2020 Subjective Pt continuing to have abd pain across lower abd and periumbilical area. Still having frequent urination. LFTs up today and had MRCP. I discussed his care with GI who recommends ERCP. Pt now agreeable to this. No nausea. No BM now in 2 days. Reports oxycodone helped with pain Review of Systems Review of Systems: All systems reviewed & are unremarkable except as noted in HPI & below Physical Exam Constitutional: WD/WN, vitals as above Eyes: + anicteric sclerae Neck: trachea midline, no thyromegaly Respiratory: normal respiratory effort, lungs clear to auscultation normal respiratory effort; no labored breathing Cardiovascular: RRR, no murmur, no edema Extremities: no edema Chest (Breasts): Chest: normal inspection of chest Gastrointestinal (Abdomen): Inspection/Auscultation: abdomen not distended Percussion/Palpation: + abdomen tender (Across lower abdomen and periumbilical area without guarding or rebound) and abdomen soft Musculoskeletal: Extremities: extremities normal to inspection; no cyanosis and no clubbing Skin: no rashes, warm and dry Neurologic: moves all extremities and awake; no focal motor deficits Psychiatric: A+Ox3, euthymic affect Lymphatic: no lymphedema Results & Data Results & Data ([facility]) Vital Signs (Past 12 Hours) Vital Signs Temp Pulse Resp BP BP Pulse Ox 03/21/20 16:14 36.8 C 71 17 112/74 96 03/21/20 06:53 36.5 C 61 16 116/75 97 Laboratory Results 03/21/20 03/21/20 03/21/20 Range/Units Unknown Unknown 05:26 WBC (4.8-10.8) K/uL RBC (4.2-5.4) M/uL Hgb (12.0-16.0) g/dL Hct (37-47) % MCV (80-100) fL MCH (25-34) pg MCHC (32-36) g/dL RDW Std Deviation (36.4-46.3) fL RDW Coeff of Chaim (11.5-14.5) % Plt Count (130-400) K/uL MPV (7.4-10.4) fL Immature Gran % (Auto) % Neut % (Auto) % Lymph % (Auto) % [place] % (Auto) % Eos % (Auto) % Baso % (Auto) % Neut # (Auto) (1.4-6.5) K/uL Lymph # (Auto) (1.2-3.4) K/uL [place] # (Auto) (0.11-0.59) K/uL Eos # (Auto) (0-0.5) K/uL Baso # (Auto) (0-0.2) K/uL Immature Gran # (Auto) (0.00-0.02) K/uL Sodium 136 (136-145) mmol/L Potassium 3.6 (3.5-5.1) mmol/L Chloride 104 (98-107) mmol/L Carbon Dioxide 28 (21-32) mmol/L Anion Gap 5.0 (3-11) BUN 9 (7-18) mg/dl Creatinine 0.80 (0.6-1.2) mg/dl Est Cr Clr Drug Dosing 93.0 ml/min Est GFR ( Amer) 109.9 Est GFR (Non-Af Amer) 94.9 BUN/Creatinine Ratio 10.6 (10-20) Glucose 113 H (70-99) mg/dl Calcium 9.0 (8.5-10.1) mg/dl Total Bilirubin 0.7 (0.2-1) mg/dl Direct Bilirubin 0.2 D (0-0.2) mg/dl AST 254 H (15-37) U/L ALT 519 H (12-78) U/L Alkaline Phosphatase 246 H (45-117) U/L Total Protein 7.0 (6.4-8.2) gm/dl Albumin 3.1 L (3.4-5.0) gm/dl Urine Color Urine Appearance (Clear) Urine pH (4.5-7.5) Ur Specific [place] (1.000-1.030) Urine Protein (Negative) Urine Glucose (UA) (Negative) Urine Ketones (Negative) Urine Blood (Negative) Urine Nitrite (Negative) Urine Bilirubin (Negative) Urine Urobilinogen (Negative) Ur Leukocyte Esterase (Negative) Urine RBC (0-4) /hpf Urine WBC (0-5) /hpf Ur Epithelial Cells (0-5) /lpf Urine Bacteria (Negative) COVID-19 Eval Order Covid19 IDNow atMUTC SARS-CoV-2, RNA, NAAT NEGATIVE (NEGATIVE) 03/21/20 03/20/20 Range/Units 05:26 Unknown WBC 18.68 H (4.8-10.8) K/uL RBC 4.21 (4.2-5.4) M/uL Hgb 12.7 (12.0-16.0) g/dL Hct 37.7 (37-47) % MCV 89.5 (80-100) fL MCH 30.2 (25-34) pg MCHC 33.7 (32-36) g/dL RDW Std Deviation 40.8 (36.4-46.3) fL RDW Coeff of Chaim 12.6 (11.5-14.5) % Plt Count 366 (130-400) K/uL MPV 9.5 (7.4-10.4) fL Immature Gran % (Auto) 0.5 % Neut % (Auto) 89.9 % Lymph % (Auto) 4.9 % [place] % (Auto) 4.6 % Eos % (Auto) 0.0 % Baso % (Auto) 0.1 % Neut # (Auto) 16.82 H (1.4-6.5) K/uL Lymph # (Auto) 0.91 L (1.2-3.4) K/uL [place] # (Auto) 0.85 H (0.11-0.59) K/uL Eos # (Auto) 0.00 (0-0.5) K/uL Baso # (Auto) 0.01 (0-0.2) K/uL Immature Gran # (Auto) 0.09 H (0.00-0.02) K/uL Sodium (136-145) mmol/L Potassium (3.5-5.1) mmol/L Chloride (98-107) mmol/L Carbon Dioxide (21-32) mmol/L Anion Gap (3-11) BUN (7-18) mg/dl Creatinine (0.6-1.2) mg/dl Est Cr Clr Drug Dosing ml/min Est GFR ( Amer) Est GFR (Non-Af Amer) BUN/Creatinine Ratio (10-20) Glucose (70-99) mg/dl Calcium (8.5-10.1) mg/dl Total Bilirubin (0.2-1) mg/dl Direct Bilirubin (0-0.2) mg/dl AST (15-37) U/L ALT (12-78) U/L Alkaline Phosphatase (45-117) U/L Total Protein (6.4-8.2) gm/dl Albumin (3.4-5.0) gm/dl Urine Color Yellow Urine Appearance Clear (Clear) Urine pH 6.5 (4.5-7.5) Ur Specific [place] 1.010 (1.000-1.030) Urine Protein Negative (Negative) Urine Glucose (UA) Negative (Negative) Urine Ketones Negative (Negative) Urine Blood 2+ H (Negative) Urine Nitrite Negative (Negative) Urine Bilirubin Negative (Negative) Urine Urobilinogen Negative (Negative) Ur Leukocyte Esterase Negative (Negative) Urine RBC 5-10 H (0-4) /hpf Urine WBC 0-5 (0-5) /hpf Ur Epithelial Cells 10-20 H (0-5) /lpf Urine Bacteria 1+ H (Negative) COVID-19 Eval Order SARS-CoV-2, RNA, NAAT (NEGATIVE) Diagnostic Findings MRCP reviewed PG Care Time/CCT Total # of Minutes Spent Total Time Spent with Patient: Total time spent is greater than 50% in coordination of care (as documented) at patient's floor/unit and/or counseling patient: Coding Level of Care Code 09415 Subseq Hosp Care Lvl 3 Diagnoses Enteritis K52.9 Ulcerative colitis K51.018 Digestive disease complication type: other complication Ulcerative colitis location: ulcerative pancolitis Elevated LFTs R79.89 Hypomagnesemia E83.42 Hypokalemia E87.6 Upper back pain M54.9 Spondyloarthritis M47.819 Hypothyroid E03.9 Allergic rhinitis J30.9 Urinary frequency R35.0 DVT prophylaxis Z29.9 (1) Ulcerative colitis Digestive disease complication type: other complication Ulcerative colitis location: ulcerative pancolitis Qualified Code(s): K51.018 - Ulcerative (chronic) pancolitis with other complication
[2020-03-21] MEDS: MoRPHine SULFATE 2 MG/ML CARP IV PRN (20:14)
[2020-03-21] MEDS: CHOLECALCIFEROL 1,000 UNITS 25 MCG TAB PO SCH (20:53)
[2020-03-21] MEDS: CALCIUM 600MG + VIT D 400 IU TAB PO SCH (20:54)
[2020-03-22] MEDS: METRONIDAZOLE IV SCH ×3 (04:52→20:57)
[2020-03-22] MEDS: TIROSINT 150 MCG PO SCH (04:52)
[2020-03-22] MEDS: OMEPRAZOLE 20 MG CAPCR PO SCH (04:52)
[2020-03-22] MEDS: methylPREDNISolone 40 MG in SYRINGE 0 ML IV SCH ×2 (04:52→17:14)
[2020-03-22] MEDS: PROCHLORPERAZINE 10 MG in SYRINGE 8 ML IV PRN ×3 (05:32→20:50)
[2020-03-22] MEDS: OXYCODONE HCL IR 5 MG TAB (IMMEDIATE RELEASE) PO PRN ×3 (06:17→22:07)
[2020-03-22 07:48] LABS: Hematocrit (blood only) 34.7 % (37-47); Immature Granulocytes % (auto) 0.5 %; Lymphocytes # (auto) 0.77 K/uL (1.2-3.4); Mean Corpuscular Hemoglobin 30.7 pg (25-34); Mean Corpuscular Hgb Conc 34.6 g/dL (32-36); Mean Corpuscular Volume 88.7 fL (80-100); Mean Platelet Volume 9.1 fL (7.4-10.4); Monocytes # (auto) 0.66 K/uL (0.11-0.59); Monocytes % (auto) 3.4 %; Neutrophils # (auto) 17.94 K/uL (1.4-6.5); Neutrophils % (auto) 92.1 %; Platelet Count 346 K/uL (130-400); RDW Coefficient of Variation 12.6 % (11.5-14.5); RDW Standard Deviation 40.5 fL (36.4-46.3); Red Blood Count 3.91 M/uL (4.2-5.4); White Blood Count 19.47 K/uL (4.8-10.8)
[2020-03-22] MEDS: ARTIFICIAL TEARS OP OINT 3.5 GM TUBE OP SCH ×2 (09:08→21:00)
[2020-03-22] MEDS: DICYCLOMINE HCL 10 MG CAP PO SCH ×4 (09:08→21:01)
[2020-03-22] MEDS: LORATADINE 10 MG TAB PO SCH (09:08)
[2020-03-22] MEDS: FLUOXETINE HCL 20 MG CAP PO SCH (09:08)
[2020-03-22] MEDS: APRISO 0.375 GM PO SCH (09:09)
[2020-03-22 09:44] LABS: Albumin Level 2.5 gm/dl (3.4-5.0); BUN Creatinine Ratio 18.7 (10-20); Bilirubin Direct 0.2 mg/dl (0-0.2); Calcium 8.5 mg/dl (8.5-10.1); Creatinine Clr Calc Pharmacy 106.3 ml/min; Est GFR (African American) 129.2; Est GFR (Non-African American) 111.5; Magnesium 1.9 mg/dl (1.8-2.4); Potassium 3.9 mmol/L (3.5-5.1)
[2020-03-22 09:47] LABS: Bilirubin,Total 0.6 mg/dl (0.2-1); Total Protein 6.2 gm/dl (6.4-8.2)
[2020-03-22] MEDS ORDERED: PIPERACILL/TAZOBAC CONSULT ACTIVE PRN (09:55)
[2020-03-22] MEDS ORDERED: PIPERACILLIN/TAZOBACTAM 3.375 GM in DEXTROSE 5% 100 ML IV STA (10:02)
--- NOTE | 2020-03-22 12:36 | History & Physical Bridge Note ---
Date of Service March 22, 2020 History & Physical Bridge Note I have examined the patient, reviewed the History & Physical and in the interval since the performance of the History & Physical I have noted the following changes of clinical significance: no changes noted ERCP today in view of rising LFTs
--- NOTE | 2020-03-22 13:06 | Anesthesiology Consultation ---
Date of Service March 22, 2020 Assessment & Plan (1) Encounter for pre-operative examination: Chart Review Chart Review: Acceptable Risk for Surgery and Patient NOT seen in Pre Admission Testing covid prescreening test 03/21/2020 was negative. Consults Requested none History Surgery Operation Date: 03/13/20 11:35 Proposed Procedures p Colonoscopy - Kevan Mcgregor MD Operation Date: 03/22/20 14:00 Proposed Procedures p Endoscopic Retrograde Cholangiopancreato - Young Aden MD Height/Weight Height: 5 ft 4 in Weight: 69.4 kg Allergies Allergy/AdvReac Type Severity Reaction Status Date / Time acetaminophen Allergy Severe INTOLERANCE Verified 03/11/20 21:42 TO APAP hydromorphone Allergy Severe MUSCLE Verified 03/11/20 21:42 SHAKE ibuprofen Allergy Severe Intolerance Verified 03/11/20 21:42 to NSAIDS Sulfa (Sulfonamide Allergy Severe SKIN BURN Verified 03/11/20 21:42 Antibiotics) amoxicillin AdvReac Severe VOMIT Verified 03/19/20 09:34 doxycycline AdvReac Severe DIARRHEA,UT Verified 03/19/20 09:34 I,VOMIT edetic acid AdvReac Severe HEADACHES Verified 03/19/20 09:34 rifaximin AdvReac Severe HEADACHES Verified 03/19/20 09:34 risedronate sodium AdvReac Severe SHAKY/FEVER Verified 03/11/20 21:42 /VOMITING azithromycin AdvReac DIARRHEA, Verified 03/11/20 21:42 LIVER PAIN, HEADACHE leflunomide AdvReac VASCULITIS Verified 03/11/20 21:42 mesalamine [From Lialda] AdvReac MUSCLE Verified 03/11/20 21:42 SHAKES methotrexate AdvReac Vomiting Verified 03/11/20 21:42 mycophenolate mofetil AdvReac Watery Eye Verified 03/11/20 21:42 [From CellCept] ondansetron [From Zofran] AdvReac Headache Verified 03/11/20 21:42 FLOURORESIN AdvReac SKIN Uncoded 03/11/20 21:42 AROUND EYES CRACK HONEY COUGH SURUP AdvReac Joint Pain Uncoded 03/11/20 21:42 Medications Home Medications Medication Instructions Recorded Confirmed Last Taken etonogestrel-ethinyl estradiol 1 ea VAGINAL DIRECTED 08/22/18 03/11/20 08/22/18 [NuvaRing] calcium carbonate [Calcium 500] 500 mg PO HS 10/23/19 03/11/20 11/29/19 celecoxib [Celebrex] 100 - 200 mg PO BID 10/23/19 03/11/20 11/30/19 10:00 fluoxetine [Prozac] 20 mg PO QAM 10/23/19 03/11/20 03/11/20 levothyroxine [Tirosint] 150 mcg PO QAM 10/23/19 03/11/20 03/11/20 omeprazole 20 mg PO QAM 10/23/19 03/11/20 03/11/20 cholecalciferol (vitamin D3) 3,000 unit PO DAILY 03/11/20 03/11/20 03/11/20 [Vitamin D3] dicyclomine 10 mg PO QID 03/11/20 03/11/20 03/11/20 WITH LUNCH ergocalciferol (vitamin D2) 50,000 unit PO .[id number] 03/11/20 03/11/20 Unknown [Vitamin D2] mesalamine [Apriso] 0.375 g PO QAM 03/11/20 03/11/20 03/11/20 prednisone 20 mg PO QAM 03/11/20 03/11/20 03/11/20 metronidazole 250 mg PO TID #6 tab 03/19/20 Unknown metronidazole 500 mg PO TID #6 tab 03/19/20 Unknown prednisone 5 mg PO UD #28 tab 03/19/20 Unknown prednisone 40 mg PO DAILY 51 Days #92 tab 03/19/20 Unknown prochlorperazine [Compazine] 25 mg IN BID PRN #12 ea 03/19/20 Unknown prochlorperazine maleate 10 mg PO Q8H PRN #30 tab 03/19/20 Unknown [Compazine] tramadol 100 mg PO Q6 PRN #30 tab 03/19/20 Unknown Active Medications Generic Name Dose Route Start Last Admin Trade Name Freq PRN Reason Stop Dose Admin Dicyclomine HCl 10 mg 03/12/20 09:00 03/22/20 09:08 Bentyl PO 04/11/20 08:59 10 mg QID MITRA Administration Fluoxetine HCl 20 mg 03/12/20 09:00 03/22/20 09:08 Prozac PO 04/11/20 08:59 20 mg QAM MITRA Administration Hydroxyzine HCl 25 mg 03/21/20 08:57 03/21/20 09:11 Hydroxyzine Hcl 25 Mg Tab PO 04/20/20 08:56 25 mg Q6 PRN Administration itching Prochlorperazine 10 mg/ 10 mls @ 5 mls/min 03/12/20 02:09 03/22/20 11:55 Syringe IV 04/11/20 02:08 5 mls/min Q6H PRN Administration Nausea And Vomiting Methylprednisolone 40 mg/ 0.64 mls @ 1.5 mls/min 03/17/20 17:00 03/22/20 04:52 Syringe IV 04/16/20 16:59 1.5 mls/min Q12H MITRA Administration Metronidazole 750 mg in 150 mls @ 100 mls/hr 03/18/20 16:00 03/22/20 11:56 Flagyl IV 03/23/20 23:59 80 mls/hr Q8H MITRA Administration Protocol Loratadine 10 mg 03/18/20 15:30 03/22/20 09:08 Loratadine 10 Mg Tab PO 04/17/20 15:29 10 mg QAM MITRA Administration Methocarbamol 500 mg 03/17/20 17:44 03/17/20 18:03 Robaxin PO 04/16/20 17:43 500 mg Q8 PRN Administration muscle relaxer Morphine Sulfate 2 mg 03/12/20 01:17 03/21/20 20:14 Morphine Sulfate 2 Mg/Ml Carp IV 03/26/20 01:16 2 mg Q2H PRN Administration Pain Multi-Ingredient Cream 1 appln 03/12/20 01:17 03/22/20 09:08 Lacri-Lube OP 04/11/20 01:16 Not Given BID MITRA Multivitamins/Minerals 1 tab 03/17/20 21:00 03/21/20 20:54 Caltrate Plus PO 04/16/20 20:59 1 tab HS MITRA Administration Tirosint 150mcg 1 ea 03/13/20 06:30 03/22/20 04:52 Non-Formulary PO 04/12/20 06:29 150 mcg Patient's Own Med DAILYBB MITRA Administration Apriso Er 0.375 Gm 4 ea 03/12/20 09:00 03/22/20 09:09 Non-Formulary PO 04/11/20 08:59 4 cap Patient's Own Med DAILY MITRA Administration Omeprazole 20 mg 03/15/20 06:30 03/22/20 04:52 Prilosec PO 04/14/20 06:29 20 mg DAILY@0630 MITRA Administration Oxycodone HCl 5 mg 03/20/20 18:20 03/22/20 06:17 Oxycodone Hcl Ir 5 Mg Tab (Immediate Release) PO 04/03/20 18:19 5 mg Q4 PRN Administration Pain Vitamin D 3,000 units 03/17/20 21:00 03/21/20 20:53 Vitamin D3 PO 04/16/20 20:59 3,000 units HS MITRA Administration Past Medical History Medical History Allergic rhinitis Autoimmune disorder Primary sclerosing cholangitis Secondary Sjogren's syndrome Spondyloarthritis Thyroid cancer Ulcerative colitis Exercise / Class Metabolic Activity II 4-5 Yardwork/Stairs/Walk up hill Past Family History Family History Other Family history non-contributory Past Surgical History Surgical History Hx of colonoscopy Past Anesthesia History No Hx of Anesthesia Complications and No Family Hx of Anesthesia Complications History of PONV No Hx of PONV and No Hx of Motion Sickness Social History Smoking Status: Former smoker tobacco type: cigarettes Do You Dip or Chew Tobacco: No Alcohol type: wine and hard liquor alcohol intake frequency: holidays/special occasions only Hx Substance Use: No Physical Exam Vital Signs Last Vital Signs Temp 36.7 C 03/22/20 06:56 Pulse 70 03/22/20 06:56 Resp 16 03/22/20 06:56 BP 105/70 03/22/20 06:56 Pulse Ox 94 03/22/20 06:56 Testing Laboratory Results 03/22/20 07:36 03/22/20 07:36 Urine Color Yellow 03/20/20 Unknown Urine Appearance Clear (Clear) 03/20/20 Unknown Urine pH 6.5 (4.5-7.5) 03/20/20 Unknown Ur Specific [place] 1.010 (1.000-1.030) 03/20/20 Unknown Urine Protein Negative (Negative) 03/20/20 Unknown Urine Glucose (UA) Negative (Negative) 03/20/20 Unknown Urine Ketones Negative (Negative) 03/20/20 Unknown Urine Nitrite Negative (Negative) 03/20/20 Unknown Ur Leukocyte Esterase Negative (Negative) 03/20/20 Unknown Urine WBC (Auto) 1-5 /hpf (0-5) 03/11/20 18:03 Urine RBC (Auto) 5-10 /hpf (0-4) H 03/11/20 18:03 U Hyaline Cast (Auto) 0 /lpf (0-5) 03/11/20 18:03 U Epithel Cells (Auto) 5-10 /lpf (0-5) H 03/11/20 18:03 Urine Bacteria (Auto) 1+ (Negative) H 03/11/20 18:03 Urine RBC 5-10 /hpf (0-4) H 03/20/20 Unknown Urine WBC 0-5 /hpf (0-5) 03/20/20 Unknown Ur Epithelial Cells 10-20 /lpf (0-5) H 03/20/20 Unknown Urine Test Negative (Negative) 03/11/20 18:03 03/20/20 Unknown Urine Culture - Preliminary Urine,Clean Catch Pin-point growth present, reincubating. 03/13/20 Unknown WBC Smear - Final Stool Escherichia coli Shiga Toxins Test - Final Stool Culture - Final No Salmonella isolated, No Shigella isolated, No Campylobacter jejuni isolated. 03/12/20 20:25 WBC Smear - Final Stool Escherichia coli Shiga Toxins Test - Final Stool Culture - Final No Salmonella isolated, No Shigella isolated, No Campylobacter jejuni isolated. 03/11/20 18:03 Urine Culture - Final Urine,Clean Catch No growth - less than 1,000 colonies/mL. Electrocardiogram Date: 11/30/19 Test Reason : Blood Pressure : / mmHG Vent. Rate : 073 BPM Atrial Rate : 073 BPM P-R Int : 130 ms QRS Dur : 072 ms QT Int : 404 ms P-R-T Axes : 035 049 032 degrees QTc Int : 445 ms Normal sinus rhythm Normal ECG When compared with ECG of 04-NOV-2019 13:24, No significant change was found Confirmed by Artie Irving ([id number]) on 12/01/2019 10:40:35 AM Echocardiogram Date: 12/03/19 EF: 60-65% LV Function: normal Valvular Disease: + no significant valvular disease
[2020-03-22] MEDS ORDERED: ATROPINE SULFATE 0.1 MG/ML 10ML SYR IV PRN (13:08)
[2020-03-22] MEDS ORDERED: ePHEDrine sulfate 50 MG/ML AMP IV PRN (13:08)
[2020-03-22] MEDS ORDERED: fentaNYL citrate 100 MCG/2 ML VIAL IV PRN (13:08)
[2020-03-22] MEDS ORDERED: IOVERSOL 50ml IV ONE (13:35)
[2020-03-22] MEDS ORDERED: fentaNYL citrate 100 MCG/2 ML VIAL ONE (13:39)
[2020-03-22] MEDS ORDERED: MIDAZOLAM HCL 1 MG/ML 2ML VIAL ONE (13:39)
[2020-03-22] MEDS ORDERED: DEXAMETHASONE SOD INJ 4 MG/ML VIAL ONE (13:39)
[2020-03-22] MEDS ORDERED: LIDOCAINE HCL 2% 2 ML VIAL/AMP(20MG/ML) INFIL ONE (13:39)
[2020-03-22] MEDS ORDERED: PROPOFOL IV EMULSION 10 MG/ML 20 ML VIAL IV ONE (13:39)
[2020-03-22] MEDS ORDERED: ONDANSETRON INJ 2 MG/ML 2 ML VIAL ONE (13:39)
[2020-03-22] MEDS ORDERED: INDOMETHACIN 50 MG SUPP PR ONE (13:47)
--- NOTE | 2020-03-22 14:15 | Operative Report ---
Post Operative Report Pre & Post Diagnosis Operation Date: 03/13/20 11:35 Pre-Op Diagnosis: Small bowel Obstruction Post-Op Diagnosis: Colitis Operation Date: 03/22/20 14:00 Pre-Op Diagnosis: Abnormal Liver Function Tests Post-Op Diagnosis: Sludge I identified the patient and participated in the time-out.: Yes Procedure Operation Date: 03/13/20 11:35 Actual Procedures p Colonoscopy(Not Applicable) - Kevan Mcgregor MD Operation Date: 03/22/20 14:00 Actual Procedures p Endoscopic Retrograde Cholangiopancreatogram(Not Applicable) - Young Aden MD Surgeon Young Aden MD Public Information Coordinator None Estimated Blood Loss 0 Findings See Below (CBD sludge removed) Specimens None Description of Procedure ERCP I attest to the content of the Intraoperative Record and any orders documented therein. Any exceptions are noted below.
--- NOTE | 2020-03-22 14:35 | Fluoroscopy Report ---
[place] ERCP biliary ductal HISTORY: 34 years-old Female ERCP IN OR COMPARISON: MRCP 03/21/2020 TECHNIQUE: 10 spot fluoroscopic images of the abdominal right upper quadrant were obtained utilizing 1 minute 35.9 seconds of fluoroscopy time. FINDINGS: Endoscope is noted within the duodenum. Cannulation of the common bile duct with balloon sweep. Cysti c duct remnant with cholecystectomy clips. Multiple intrahepatic biliary strictures. Normal caliber o f the common bile duct. No definite filling defects identified to suggest choledocholithiasis. Contra st extends into the duodenum without extravasation. IMPRESSION: Fluoroscopic assistance as above. Please see procedural report for further details. ACT 112: Negative or not required by law. The above report was generated using voice recognition software. It may contain grammatical, syntax o r spelling errors. Electronically signed by: Isaac Ramirez M.D. 03/22/2020 2:33 PM
--- NOTE | 2020-03-22 14:42 | GI REPORT ---
Patient Name: Owen Dunne Procedure Date: 03/22/2020 1:41 PM Date of : 1985 Admit Type: Inpatient Age: 34 Gender: Female Attending MD: Young Aden MD Procedure: ERCP Providers: Young Aden MD Referring MD: Deloris Huang Md Indications: Abnormal MRCP, Suspected bile duct stone(s), Elevated liver enzymes, PSC Medicines: General Anesthesia, Peptazo 3.375 gm Complications: No immediate complications. Estimated Blood Loss: Estimated blood loss: none. Procedure: Pre-Anesthesia Assessment: - Prior to the procedure, a History and Physical was performed, and patient medications, allergies and sensitivities were reviewed. The patient's tolerance of previous anesthesia was reviewed. - The risks and benefits of the procedure and the sedation options and risks were discussed with the patient. All questions were answered and informed consent was obtained. - Patient identification and proposed procedure were verified prior to the procedure by the physician and the nurse. The procedure was verified in the procedure room. - Pre-procedure physical examination revealed no contraindications to sedation. After obtaining informed consent, the scope was passed under direct vision. Throughout the procedure, the patient's blood pressure, pulse, and oxygen saturations were monitored continuously. The Scope was introduced through the mouth, and advanced to the duodenum and used to inject contrast into the bile duct. The ERCP was accomplished without difficulty. The patient tolerated the procedure well. Findings: A sweat band separator film of the abdomen was obtained. Surgical clips, consistent with a previous cholecystectomy, were seen in the area of the right upper quadrant of the abdomen. The esophagus was successfully intubated under direct vision. The scope was advanced to a normal major papilla in the descending duodenum without detailed examination of the pharynx, larynx and associated structures, and upper GI tract. The upper GI tract was grossly normal. A biliary sphincterotomy had been performed. The sphincterotomy appeared open. A 0.035 inch straight standard wire was passed into the biliary tree from the first attempt. The Fusion OMNI sphincterotome was passed over the guidewire and the bile duct was then deeply cannulated. Contrast was injected. I personally interpreted the bile duct images. Ductal flow of contrast was adequate. Image quality was adequate. Contrast extended to the main bile duct. Opacification of the entire biliary tree was successful. The maximum diameter of the ducts was 6 mm. Intrahepatic stricturing disease noted consistent with known underlying PSC. The biliary tree was swept with an 11.5 mm balloon starting at the bifurcation. Sludge was swept from the duct. The cystic duct remnant was selectively cannulated and balloon sweep done as well. No stones and no dominant stricture. Indomethacin 100 mg was given via suppository to decrease the risk of post-ERCP pancreatitis (PEP). Pancreatic duct was not cannulated nor injected with contrast. Impression: - Intrahepatic stricturing consistent with known PSC. The biliary tree was swept and sludge was found. No stone. No filling defect. No dominant stricture. Recommendation: - Return patient to hospital [facility] for ongoing care. - Augmentin (amoxicillin/clavulanate) 875 mg PO BID for 3 days. - Avoid Hepatotoxic meds, monitor LFTs, if no change in few weeks then would consider a Liver biopsy. Young Aden MD 03/22/2020 2:41:36 PM This report has been signed electronically. Note Initiated On: 03/22/2020 1:41 PM Number of Addenda: 0 I attest to the content of the Intraoperative Record and orders documented therein, exceptions below {[id number]}
--- NOTE | 2020-03-22 15:40 | Anesthesiology Progress Note ---
Date of Service March 22, 2020 Anesthesia Post Procedure Vital Signs Vital Signs: Temp Pulse Pulse Resp BP BP Pulse Ox 03/22/20 15:15 36.7 C 62 16 115/71 97 03/22/20 15:05 63 20 116/60 97 03/22/20 14:55 73 20 119/66 97 03/22/20 14:45 60 12 123/65 96 03/22/20 14:35 65 20 115/64 97 03/22/20 14:25 36.7 C 75 19 119/66 95 03/22/20 06:56 36.7 C 70 16 105/70 94 03/21/20 23:21 36.7 C 67 16 131/85 97 03/21/20 16:14 36.8 C 71 17 112/74 96 Pain Intensity Abdomen: Pain Intensity: 3 Upper Back: Pain Intensity: 4 Chest: Pain Intensity: 2 Transfer of Care Handoff Completed per policy Notes Mental Status: alert / awake / arousable and participated in evaluation Patient Amnestic to Procedure: Yes Nausea / Vomiting: adequately controlled Pain: adequately controlled Airway Patency, RR, SpO2: stable & adequate BP & HR: stable & adequate Hydration State: stable & adequate Anesthetic Complications: no major complications apparent and Pt Satisfied with anesthetic care
--- NOTE | 2020-03-22 16:52 | Hospitalist Progress Note ---
Date of Service March 22, 2020 Assessment & Plan (1) Enteritis: * Presented with worsening lower abdominal pain and diarrhea after a recent hospital stay at [facility] for sharp stabbing right upper quadrant pain and had a normal MRCP there. * CT a/p on 03/11 showed mildly dilated fluid-filled small bowel loops demonstrating wall thickening; consistent with enteritis or partial SBO. * Discussed with [facility] GI who feel that CMV or cryptosporidium, etc. were a concern * Stool studies collected on 03/12 --> no e.coli, salmonella, shigella, campylobacter on stool culture. Yersinia sample was rejected and not recollected. Giardia and cryptosporidium are now negative. * [facility] contacted GI at [facility] on 03/18 and reported that her stool culture there from 03/09 was growing a Blastocystis species-given immunosuppression, have elected to treat with metronidazole 750 mg IV/p.o. 3 t imes daily-we are treating with IV as patient reports intolerance to p.o. metronidazole-last day of treatment would be 03/23 * Colonoscopy on 03/13 with diffuse irritation and ulcerations. Biopsies taken as well as stool aspirate --> negative for CMV and consistent with acute on chronic ulcerative colitis * Continues with lower abdominal pain but now diarrhea has slowed down * continue oxycodone 5 mg p.o. every 4 hours as needed for pain which is working well * continue Compazine as needed for nausea * Now that infection is ruled out, she was started back on high-dose steroids with IV Solu-Medrol 40 mg IV every 12 hours and then will go to 8-week taper of prednisone starting with 40 mg daily and going down by 5 mg every 1 weeks over an 8-week course-convert to po prednisone tomorrow * Follow-up with GI as an outpatient, will be likely starting Stelara once approved. She will no longer take Xeljanz as originally planned for her ankylosing spondylitis as she is hesitant to take the higher dose of this which is required for ulcerative colitis due to a risk of VTE * Slowly improving since starting high-dose steroids-needs more time in the hospital for pain control (2) Ulcerative colitis: * Long-standing on multiple immune-modulating medications in her past. 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 It is believed that this may be contributing to patient's current symptoms. Will be starting Stelara again as above. Colonoscopy here confirms significant flare of ulcerative colitis. Follows with Gabriela Trevizo ([facility] GI) (c: [phone]). * Continue follow-up with GI at [facility] * Started IV Solu-Medrol as above and then prednisone taper as above * Continue on vitamin D and calcium while on high-dose steroids * Pain control as above (3) Elevated LFTs: LFTs became significantly elevated throughout hospital course. TBili remains normal but AST and ALT, Alk phos high No RUQ pain. MRCP with filling defect in duct and probable intrahepatic biliary strictures She had a recently normal MRCP in the last 2 weeks at [facility] and was told that her PSC was in remission Liver ultrasound here is without significant abnormality She is status post cholecystectomy ERCP 03/22 with intrahepatic strictures, CBD no dominant stricture and had sludge removed, no stones -GI recommends following LFTs in a few weeks and if remain high, then needs repeat liver biopsy -f/u outpt with GI at [facility] follow LFTs in AM -watch for post-ERCP pancreatitis -GI recommended AUgmentin x 3 days but she cannot tolerate this-discussed this with GI and said ok to remain on FLagyl -adv diet as tolerated today (4) Hypomagnesemia: * Was replaced and now resolved (5) Hypokalemia: * Replaced and resolved (6) Upper back pain: Trial of Robaxin for muscle spasm and is now completely resolved (7) Spondyloarthritis: * Follows with blast furnace keeper helper (Iris Nix) at [facility]. Patient began Cosentyx injections beginning in December 13, 2019, last injection February 07, 2020. However, she will not discontinued this as she feels it created a flare of her ulcerative colitis * Discontinued Celebrex due to flare of ulcerative colitis * Her blast furnace keeper helper is Dr. Nix-[facility] transfer line ([phone]) (8) Hypothyroid: * Hx of thyroid cancer, s/p removal. * Continue levothyroxine 150 mcg daily. (9) Allergic rhinitis: -Continue home Claritin (10) Urinary frequency: With new onset urinary frequency with dark brown urine on 03/20 -UA with 2+ blood and RBCs, but with 10-20 epis and bacteria indicating contamination--> NO INFECTION, Ur cx pending (11) DVT prophylaxis: * SCDs -ambulation * Disposition-continued stay for recovery after ERCP Admission and Anticipated Discharge Date Admission Date: March 12, 2020 Subjective Pt just returned from ERCP and is feeling groggy. No abd pain currently. She had a formed stool this morning and then 3 loose stools since returning from ERCP and feels the urge to defecate again now. Denies CP or SOB. No nausea. I discussed her care with GI. He recommended Augmentin x 3 days after ERCP but she cannot tolerate this or Cipro. He is ok with just Flagyl Review of Systems Review of Systems: All systems reviewed & are unremarkable except as noted in HPI & below Physical Exam Constitutional: WD/WN, vitals as above Eyes: + anicteric sclerae Neck: trachea midline, no thyromegaly Respiratory: normal respiratory effort, lungs clear to auscultation normal respiratory effort; no labored breathing Cardiovascular: RRR, no murmur, no edema Extremities: no edema Chest (Breasts): Chest: normal inspection of chest Gastrointestinal (Abdomen): normal bowel sounds, soft, nontender, no hepatosplenomegaly Musculoskeletal: Extremities: extremities normal to inspection; no cyanosis and no clubbing Skin: no rashes, warm and dry Neurologic: moves all extremities and awake; no focal motor deficits Psychiatric: Orientation: alert and cooperative Lymphatic: no lymphedema Results & Data Results & Data ([facility]) Vital Signs (Past 12 Hours) Vital Signs Temp Pulse Pulse Resp BP Pulse Ox 03/22/20 16:26 36.6 C 61 16 123/72 98 03/22/20 15:49 36.5 C 63 16 108/73 96 03/22/20 15:15 36.7 C 62 16 115/71 97 03/22/20 15:05 63 20 116/60 97 03/22/20 14:55 73 20 119/66 97 03/22/20 14:45 60 12 123/65 96 03/22/20 14:35 65 20 115/64 97 03/22/20 14:25 36.7 C 75 19 119/66 95 03/22/20 06:56 36.7 C 70 16 105/70 94 Laboratory Results 03/22/20 03/22/20 03/21/20 Range/Units 07:36 07:36 Unknown WBC 19.47 H (4.8-10.8) K/uL RBC 3.91 L (4.2-5.4) M/uL Hgb 12.0 (12.0-16.0) g/dL Hct 34.7 L (37-47) % MCV 88.7 (80-100) fL MCH 30.7 (25-34) pg MCHC 34.6 (32-36) g/dL RDW Std Deviation 40.5 (36.4-46.3) fL RDW Coeff of Chaim 12.6 (11.5-14.5) % Plt Count 346 (130-400) K/uL MPV 9.1 (7.4-10.4) fL Immature Gran % (Auto) 0.5 % Neut % (Auto) 92.1 % Lymph % (Auto) 4.0 % [place] % (Auto) 3.4 % Eos % (Auto) 0.0 % Baso % (Auto) 0.0 % Neut # (Auto) 17.94 H (1.4-6.5) K/uL Lymph # (Auto) 0.77 L (1.2-3.4) K/uL [place] # (Auto) 0.66 H (0.11-0.59) K/uL Eos # (Auto) 0.00 (0-0.5) K/uL Baso # (Auto) 0.00 (0-0.2) K/uL Immature Gran # (Auto) 0.10 H (0.00-0.02) K/uL Sodium 137 (136-145) mmol/L Potassium 3.9 (3.5-5.1) mmol/L Chloride 107 (98-107) mmol/L Carbon Dioxide 25 (21-32) mmol/L Anion Gap 5.0 (3-11) BUN 13 (7-18) mg/dl Creatinine 0.70 (0.6-1.2) mg/dl Est Cr Clr Drug Dosing 106.3 ml/min Est GFR ( Amer) 129.2 Est GFR (Non-Af Amer) 111.5 BUN/Creatinine Ratio 18.7 (10-20) Glucose 112 H (70-99) mg/dl Calcium 8.5 (8.5-10.1) mg/dl Magnesium 1.9 (1.8-2.4) mg/dl Total Bilirubin 0.6 (0.2-1) mg/dl Direct Bilirubin 0.2 (0-0.2) mg/dl AST 224 H (15-37) U/L ALT 599 H (12-78) U/L Alkaline Phosphatase 219 H (45-117) U/L Total Protein 6.2 L (6.4-8.2) gm/dl Albumin 2.5 L (3.4-5.0) gm/dl COVID-19 Eval Order SARS-CoV-2, RNA, NAAT NEGATIVE (NEGATIVE) 03/21/20 Range/Units Unknown WBC (4.8-10.8) K/uL RBC (4.2-5.4) M/uL Hgb (12.0-16.0) g/dL Hct (37-47) % MCV (80-100) fL MCH (25-34) pg MCHC (32-36) g/dL RDW Std Deviation (36.4-46.3) fL RDW Coeff of Chaim (11.5-14.5) % Plt Count (130-400) K/uL MPV (7.4-10.4) fL Immature Gran % (Auto) % Neut % (Auto) % Lymph % (Auto) % [place] % (Auto) % Eos % (Auto) % Baso % (Auto) % Neut # (Auto) (1.4-6.5) K/uL Lymph # (Auto) (1.2-3.4) K/uL [place] # (Auto) (0.11-0.59) K/uL Eos # (Auto) (0-0.5) K/uL Baso # (Auto) (0-0.2) K/uL Immature Gran # (Auto) (0.00-0.02) K/uL Sodium (136-145) mmol/L Potassium (3.5-5.1) mmol/L Chloride (98-107) mmol/L Carbon Dioxide (21-32) mmol/L Anion Gap (3-11) BUN (7-18) mg/dl Creatinine (0.6-1.2) mg/dl Est Cr Clr Drug Dosing ml/min Est GFR ( Amer) Est GFR (Non-Af Amer) BUN/Creatinine Ratio (10-20) Glucose (70-99) mg/dl Calcium (8.5-10.1) mg/dl Magnesium (1.8-2.4) mg/dl Total Bilirubin (0.2-1) mg/dl Direct Bilirubin (0-0.2) mg/dl AST (15-37) U/L ALT (12-78) U/L Alkaline Phosphatase (45-117) U/L Total Protein (6.4-8.2) gm/dl Albumin (3.4-5.0) gm/dl COVID-19 Eval Order Covid19 IDNow at[facility] SARS-CoV-2, RNA, NAAT (NEGATIVE) PG Care Time/CCT Total # of Minutes Spent Total Time Spent with Patient: Total time spent is greater than 50% in coordination of care (as documented) at patient's floor/unit and/or counseling patient: Coding Level of Care Code 91781 Subseq Hosp Care Lvl 3 Diagnoses Enteritis K52.9 Ulcerative colitis K51.018 Ulcerative colitis location: ulcerative pancolitis Digestive disease complication type: other complication Elevated LFTs R79.89 Hypomagnesemia E83.42 Hypokalemia E87.6 Upper back pain M54.9 Spondyloarthritis M47.819 Hypothyroid E03.9 Allergic rhinitis J30.9 Urinary frequency R35.0 DVT prophylaxis Z29.9 (1) Ulcerative colitis Ulcerative colitis location: ulcerative pancolitis Digestive disease complication type: other complication Qualified Code(s): K51.018 - Ulcerative (chronic) pancolitis with other complication
[2020-03-22] MEDS: CHOLECALCIFEROL 1,000 UNITS 25 MCG TAB PO SCH (21:01)
[2020-03-22] MEDS: CALCIUM 600MG + VIT D 400 IU TAB PO SCH (21:01)
[2020-03-23] MEDS: METRONIDAZOLE IV SCH ×2 (05:09→11:02)
[2020-03-23] MEDS: TIROSINT 150 MCG PO SCH (05:09)
[2020-03-23] MEDS: OMEPRAZOLE 20 MG CAPCR PO SCH (05:09)
[2020-03-23 07:27] LABS: Basophils # (auto) 0.01 K/uL (0-0.2); Basophils % (auto) 0.1 %; Eosinophils # (auto) 0.01 K/uL (0-0.5); Eosinophils % (auto) 0.1 %; Hematocrit (blood only) 36.7 % (37-47); Hemoglobin 12.5 g/dL (12.0-16.0); Immature Granulocytes # (auto) 0.11 K/uL (0.00-0.02); Immature Granulocytes % (auto) 0.6 %; Lymphocytes # (auto) 1.76 K/uL (1.2-3.4); Lymphocytes % (auto) 9.7 %; Mean Corpuscular Hemoglobin 30.2 pg (25-34); Mean Corpuscular Hgb Conc 34.1 g/dL (32-36); Mean Corpuscular Volume 88.6 fL (80-100); Mean Platelet Volume 9.1 fL (7.4-10.4); Monocytes # (auto) 1.07 K/uL (0.11-0.59); Monocytes % (auto) 5.9 %; Neutrophils # (auto) 15.17 K/uL (1.4-6.5); Neutrophils % (auto) 83.6 %; Nucleated RBC # (auto) 0.02 K/uL (0-0); Nucleated RBC % (auto) 0.1 %; Platelet Count 383 K/uL (130-400); RDW Coefficient of Variation 12.6 % (11.5-14.5); RDW Standard Deviation 40.6 fL (36.4-46.3); Red Blood Count 4.14 M/uL (4.2-5.4); White Blood Count 18.13 K/uL (4.8-10.8)
[2020-03-23] MEDS: OXYCODONE HCL IR 5 MG TAB (IMMEDIATE RELEASE) PO PRN (07:28)
[2020-03-23 07:44] VITALS: O2SAT 97
[2020-03-23 07:54] LABS: Alanine Aminotransferase 657 U/L (12-78); Albumin Level 2.7 gm/dl (3.4-5.0); Alkaline Phosphatase 231 U/L (45-117); BUN Creatinine Ratio 12.9 (10-20); Bilirubin,Total 0.8 mg/dl (0.2-1); Blood Urea Nitrogen 11 mg/dl (7-18); Calcium 8.2 mg/dl (8.5-10.1); Carbon Dioxide 23 mmol/L (21-32); Chloride 108 mmol/L (98-107); Creatinine Clr Calc Pharmacy 87.5 ml/min; Est GFR (African American) 102.2; Est GFR (Non-African American) 88.2; Glucose 94 mg/dl (70-99); Sodium 138 mmol/L (136-145); Total Protein 6.7 gm/dl (6.4-8.2)
[2020-03-23 08:47] LABS: Potassium 3.5 mmol/L (3.5-5.1)
[2020-03-23] MEDS: DICYCLOMINE HCL 10 MG CAP PO SCH ×2 (08:55→12:49)
[2020-03-23] MEDS: LORATADINE 10 MG TAB PO SCH (08:55)
[2020-03-23] MEDS: FLUOXETINE HCL 20 MG CAP PO SCH (08:55)
[2020-03-23] MEDS: ARTIFICIAL TEARS OP OINT 3.5 GM TUBE OP SCH (08:56)
[2020-03-23] MEDS: APRISO 0.375 GM PO SCH (08:56)
[2020-03-23] MEDS ORDERED: predniSONE 20 MG TAB PO SCH (09:00)
[2020-03-23] MEDS: PROCHLORPERAZINE 10 MG in SYRINGE 8 ML IV PRN (10:57)
[2020-03-23 11:24] VITALS: BP 110/80; PULSE 83; TEMP 98.1
[2020-03-23] MEDS ORDERED: PROCHLORPERAZINE MALEATE 10 MG TAB PO STA (12:12)
[2020-03-23] MEDS ORDERED: metroNIDAZOLE 250 MG TAB PO STA (12:14)
--- NOTE | 2020-03-23 15:33 | Discharge Summary ---
Date of Service March 23, 2020 Admission HPI Per Admitting Provider 34-year-old female with past medical history primary sclerosing cholangitis, ulcerative colitis, autoimmune spondylarthritis, secondary Sjogren's syndrome presents with concerns of ongoing abdominal pain. Patient notes that this worsened around mid February. Patient recently started Cosentyx injections beginning of December and since then has had abdominal pain, diarrhea. Abdominal pain is periumbilical and both LLQ/RUQ, described as sharp, nonradiating. Exacerbated by any food, water, medication intake. Alleviated by bowel rest. Patient follows with a GI at [facility] and was recently admitted there for this. Notes during admission there her symptoms were relieved while receiving IV fluids and IV pain medications. The patient reportedly did have an MRCP completed and that was ruled out to be negative for PSC at that time. Her outpatient GI physician recently started her on Bentyl and p.o. prednisone 20 mg, which is increased from 5 mg she was taking. Associated diarrhea and is worse in evenings, nausea, decreased appetite. Patient otherwise denies any fevers, chills vomiting, chest pain, shortness of breath, lightheadedness, dizziness, urinary symptoms, ingestion of suspicious foods, no sick contacts or recent travel anywhere other than [place]. Patient with no other acute concerns or complaints. Pertinent labs: WBC 14.6, glucose 151, Brooke 2.3, alk phos 205, albumin 2.9. Otherwise unremarkable Abdomen pelvis CT with IV contrast: Mildly dilated fluid-filled small bowel loops demonstrating wall thickening. A definite transition zone is not identified. The findings are consistent with either an enteritis or early/partial small bowel obstruction. There is no current evidence of a high- grade bowel obstruction. No evidence of acute appendicitis. No evidence of acute diverticulitis. ER course: IV morphine 4 mg, NSS 2 L Surgical history: Cholecystectomy 2011 with follow-up sphincterectomy soon thereafter. No other abdominal surgeries Social history: Patient denies any tobacco, alcohol, illicit drug use Principal Diagnosis Ulcerative colitis flare Discharge Exam Constitutional WD/WN, vitals as above Eyes EOM intact bilaterally; no conjunctival abnormality ENMT external ear and nose normal, oropharynx normal Neck trachea midline, no thyromegaly normal visual inspection Respiratory normal respiratory effort, lungs clear to auscultation no respiratory distress Cardiovascular RRR, no murmur, no edema Gastrointestinal (Abdomen) Inspection/Auscultation: abdomen normal to inspection and normal bowel sounds; abdomen not distended Percussion/Palpation: + abdomen tender, + guarding and abdomen soft; abdomen not rigid Musculoskeletal no cyanosis or clubbing, extremities motor strength 5/5 Skin no rashes, warm and dry Neurologic moves all extremities and awake Psychiatric Orientation: alert, oriented to person and cooperative Discharge Data Allergies Allergy/AdvReac Type Severity Reaction Status Date / Time acetaminophen Allergy Severe INTOLERANCE Verified 03/11/20 21:42 TO APAP hydromorphone Allergy Severe MUSCLE Verified 03/11/20 21:42 SHAKE ibuprofen Allergy Severe Intolerance Verified 03/11/20 21:42 to NSAIDS Sulfa (Sulfonamide Allergy Severe SKIN BURN Verified 03/11/20 21:42 Antibiotics) amoxicillin AdvReac Severe VOMIT Verified 03/19/20 09:34 doxycycline AdvReac Severe DIARRHEA,UT Verified 03/19/20 09:34 I,VOMIT edetic acid AdvReac Severe HEADACHES Verified 03/19/20 09:34 rifaximin AdvReac Severe HEADACHES Verified 03/19/20 09:34 risedronate sodium AdvReac Severe SHAKY/FEVER Verified 03/11/20 21:42 /VOMITING azithromycin AdvReac DIARRHEA, Verified 03/11/20 21:42 LIVER PAIN, HEADACHE leflunomide AdvReac VASCULITIS Verified 03/11/20 21:42 mesalamine [From Lialda] AdvReac MUSCLE Verified 03/11/20 21:42 SHAKES methotrexate AdvReac Vomiting Verified 03/11/20 21:42 mycophenolate mofetil AdvReac Watery Eye Verified 03/11/20 21:42 [From CellCept] ondansetron [From Zofran] AdvReac Headache Verified 03/11/20 21:42 FLOURORESIN AdvReac SKIN Uncoded 03/11/20 21:42 AROUND EYES CRACK HONEY COUGH SURUP AdvReac Joint Pain Uncoded 03/11/20 21:42 Consultations 03/11/20 21:02 ED Decision to Admit Stat 03/12/20 01:17 Consult Gastroenterology Routine 03/17/20 17:32 Consult Health Information Management Routine Procedures Performed Operation Date: 03/13/20 11:35 Actual Procedures p Colonoscopy(Not Applicable) - eKvan Mcgregor MD Operation Date: 03/22/20 14:00 Actual Procedures p Endoscopic Retrograde Cholangiopancreatogram(Not Applicable) - Young Aden MD Ordered Studies 03/11/20 17:55 CT abd pelvis IV con only Stat 03/16/20 20:10 US liver Routine 03/21/20 09:19 MR MRCP Stat 03/22/20 FL ERCP biliary ductal Routine Hospital Course (1) Enteritis: * Presented with worsening lower abdominal pain and diarrhea after a recent hospital stay at [facility] for sharp stabbing right upper quadrant pain and had a normal MRCP there. * CT a/p on 03/11 showed mildly dilated fluid-filled small bowel loops demonstrating wall thickening; consistent with enteritis or partial SBO. * Discussed with [facility] who feel that CMV or cryptosporidium, etc. were a concern * Stool studies collected on 03/12 --> no e.coli, salmonella, shigella, campylobacter on stool culture. Yersinia sample was rejected and not recollected. Giardia and cryptosporidium are now negative. * [facility] contacted GI at [facility] on 03/18 and reported that her stool culture there from 03/09 was growing a Blastocystis species-given immunosuppression, have elected to treat with metronidazole 750 mg IV/p.o. 3 times daily-we are treating with IV as patient reports intolerance to p.o. metronidazole-last day of treatment would be 03/23 * Colonoscopy on 03/13 with diffuse irritation and ulcerations. Biopsies taken as well as stool aspirate --> negative for CMV and consistent with acute on chronic ulcerative colitis * Continues with lower abdominal pain but now diarrhea has slowed down * continue oxycodone 5 mg p.o. every 4 hours as needed for pain which is working well * continue Compazine as needed for nausea * Now that infection is ruled out, she was started back on high-dose steroids with IV Solu-Medrol 40 mg IV every 12 hours and then will go to 8-week taper of prednisone starting with 40 mg daily and going down by 5 mg every 1 weeks over an 8-week course-convert to po prednisone tomorrow * Follow-up with GI as an outpatient, will be likely starting Stelara once approved. She will no longer take Xeljanz as originally planned for her ankylosing spondylitis as she is hesitant to take the higher dose of this which is required for ulcerative colitis due to a risk of VTE * Slowly improving since starting high-dose steroids-needs more time in the hospital for pain control (2) Ulcerative colitis: * Long-standing on multiple immune-modulating medications in her past. 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 It is believed that this may be contributing to patient's current symptoms. Will be starting Stelara again as above. Colonoscopy here confirms significant flare of ulcerative colitis. Follows with Gabriela Trevizo ([facility]) (c: [phone]). * Continue follow-up with GI at [facility] * Started IV Solu-Medrol as above and then prednisone taper as above * Continue on vitamin D and calcium while on high-dose steroids * Pain control as above (3) Elevated LFTs: LFTs became significantly elevated throughout hospital course. TBili remains normal but AST and ALT, Alk phos high No RUQ pain. MRCP with filling defect in duct and probable intrahepatic biliary strictures She had a recently normal MRCP in the last 2 weeks at [facility] and was told that her PSC was in remission Liver ultrasound here is without significant abnormality She is status post cholecystectomy ERCP 03/22 with intrahepatic strictures, CBD no dominant stricture and had sludge removed, no stones -GI recommends following LFTs in a few weeks and if remain high, then needs repeat liver biopsy -f/u outpt with GI at [facility] follow LFTs in AM -watch for post-ERCP pancreatitis -GI recommended AUgmentin x 3 days but she cannot tolerate this-discussed this with GI and said ok to remain on FLagyl -adv diet as tolerated today (4) Hypomagnesemia: * Was replaced and now resolved (5) Hypokalemia: * Replaced and resolved (6) Upper back pain: Trial of Robaxin for muscle spasm and is now completely resolved (7) Spondyloarthritis: * Follows with seismograph operator helper (Iris Nix) at [facility]. Patient began Cosentyx injections beginning in December 13, 2019, last injection February 07, 2020. However, she will not discontinued this as she feels it created a flare of her ulcerative colitis * Discontinued Celebrex due to flare of ulcerative colitis * Her seismograph operator helper is Dr. Nix-[facility] transfer line ([phone]) (8) Hypothyroid: * Hx of thyroid cancer, s/p removal. * Continue levothyroxine 150 mcg daily. (9) Allergic rhinitis: -Continue home Claritin (10) Urinary frequency: With new onset urinary frequency with dark brown urine on 03/20 -UA with 2+ blood and RBCs, but with 10-20 epis and bacteria indicating contamination--> NO INFECTION, Ur cx pending (11) DVT prophylaxis: * SCDs -ambulation * Disposition-continued stay for recovery after ERCP Total Time Total Time Spent Total Time Spent (In Minutes): 35 Discharge Plan Discharge Items Patient Disposition: Home - Self-Care Reason For Visit: SBO Discharge Diagnosis: Flare of ulcerative colitis Activity: Resume your previous activity Non-emergency contact: Primary Care Provider Call non-emergency contact if: your symptoms worsen and your temperature is above 101 Follow-up/Referrals: Brenda Paredes MD [Primary Care Provider] - Diet: Low Fiber Addtl Attending Provider Instructions: You were admitted to the hospital with abdominal pain. We initially thought this could be an infection due to your immunosuppression; however, in the end, the testing indicated a flare of your ulcerative colitis. As such, we have started high-dose steroids and are starting you on a long taper. You also had a positive stool test from your [facility] stool sample which we treated with metronidazole. You finished the course via IV today and do not need any more antibiotics. Please follow up with Dr. Trevizo at [facility] for initiating your Stellara. Pending Studies at Discharge: No Stand-Alone Forms: My [facility] WhatsApp [facility], Opioid Pain Management, Smoking Cessation Medications and DC Order Prescriptions: New prednisone 10 mg tablet 40 mg PO DAILY 51 Days Qty: 92 RF: 0 prednisone 5 mg tablet 5 mg PO UD Qty: 28 RF: 0 prochlorperazine maleate [Compazine] 10 mg tablet 10 mg PO Q8H PRN (Reason: nausea and vomiting) Qty: 30 RF: 0 prochlorperazine [Compazine] 25 mg suppository 25 mg MT BID PRN (Reason: nausea and vomiting) Qty: 12 RF: 0 oxycodone 5 mg capsule 5 mg PO Q6H PRN (Reason: pain) Qty: 30 RF: 0 Continued etonogestrel-ethinyl estradiol [NuvaRing] 0.12-0.015 mg/24 hr ring 1 ea Vaginal DIRECTED RF: 0 omeprazole 20 mg capsule,delayed release(DR/EC) 20 mg PO QAM RF: 0 Tirosint 150 mcg capsule 150 mcg PO QAM RF: 0 calcium carbonate [Calcium 500] 500 mg calcium (1,250 mg) Tablet 500 mg PO HS RF: 0 fluoxetine [Prozac] 20 mg capsule 20 mg PO QAM RF: 0 ergocalciferol (vitamin D2) [Vitamin D2] 1,250 mcg (50,000 unit) capsule 50,000 unit PO .[id number] RF: 0 dicyclomine 10 mg capsule 10 mg PO QID RF: 0 cholecalciferol (vitamin D3) [Vitamin D3] 25 mcg (1,000 unit) Capsule 3,000 unit PO DAILY RF: 0 mesalamine [Apriso] 0.375 gram capsule,extended release 24hr 0.375 g PO QAM RF: 0 Discontinued celecoxib [Celebrex] 100 mg capsule 100 - 200 mg PO BID RF: 0 prednisone 20 mg tablet 20 mg PO QAM RF: 0 Discharge Orders: Discharge Order (Routine); Ordered 03/23/20 Ordered By: Adryan Torres/Other Patient Handouts: What Is Ulcerative Colitis? Admission Data Admit Date/Time: 03/12/20 00:33 Attending Provider: Adryan Shin Admit Provider: Horacio Haynes Primary Care Provider: Brenda Paredes Other Providers: Mohsen Leary ; Josse Mills Other Interventions: Discharge Summary Assessment (RN) Last Done: 03/23/20 12:39 Coding Level of Care Code D/C Day Management >30 mins Diagnoses Enteritis K52.9 Ulcerative colitis K51.018 Ulcerative colitis location: ulcerative pancolitis Digestive disease complication type: other complication Elevated LFTs R79.89 Hypomagnesemia E83.42 Hypokalemia E87.6 Upper back pain M54.9 Spondyloarthritis M47.819 Hypothyroid E03.9 Allergic rhinitis J30.9 Urinary frequency R35.0 DVT prophylaxis Z29.9
== END 2020-03-23 13:21 | disposition home or self-care (01) | DRG 386 ==
LOC: ED 17:27 → SUATTDRO 03-12 00:33 → 3W 03-12 00:33

== ENCOUNTER 2020-03-25 17:59 | Inpatient (IN) ==
[2020-03-25] MEDS ORDERED: OXYCODONE HCL IR 5 MG TAB (IMMEDIATE RELEASE) PO PRN (21:02)
[2020-03-25] MEDS ORDERED: OXYCODONE HCL IR 5 MG TAB (IMMEDIATE RELEASE) PO STA (21:02)
--- NOTE | 2020-03-25 21:10 | History & Physical Report ---
Date of Service March 25, 2020 Assessment & Plan (1) Epigastric pain: Although patient was directly admitted for post op pancreatitis this appears to be less likely given down trending lipase without IV fluids and symptoms developed 3 days after procedure. More likely would be her thrush causing her condition and will consult GI for consideration of confirmation with EGD. No fever to suggest candidemia - will defer blood cultures unless she was to develop a fever. Consult GI. (2) Oral thrush: Visualized on right posterior oropharynx Nystatin 10ml QID, Will use of fluconazole to GI and consideration of EGD for confirmation prior to treatment. (3) Post-ERCP acute pancreatitis: Discussed above. Possible but less likely diagnosis (4) Ulcerative colitis: Down to 35mg prednisone daily taper after recent flare up. Continue taper. (5) Elevated LFTs: Appear to all be downtrending since ERCP which is encouraging (6) Spondyloarthritis: (7) Hypothyroid: Continue Tirosint 150mcg PO daily, 300 mcg on Sundays (8) DVT prophylaxis: No chemical prophylaxis indicated given low risk. [facility] Admission and Anticipated Discharge Date Admission Date: March 25, 2020 History of Present Illness Chief Complaint: Pancreatitis Primary Care Provider: Brenda Paredes MD Owen Rapp is a 34 year old female with ulcerative colitis, primary sclerosing cholangitis, autoimmune spondylarthritis, secondary Sjogren's syndrome who presents as a direct admission from [facility] due to concerns of post ERCP pancreatitis. She reports feeling her usual ulcerative colitis pain after the ERCP and was discharged just 2 days prior without epigastric pain. She started having severe 10/10 epigastric pain today which radiated around her right side, associated nausea and loss of appetite. She has been unable to drink or eat much today. She went to [facility] and had outpatient labs taken with elevated lipase in 800s and therefore was referred back for concern for post ERCP pancreatitis which she has had previously on prior ERCPs. No change in her bowel movements. No dysuria or change in urine frequency or smell. Urine appears concentrated. She was also noted to have oral thrush in the office, confirmed on SG staining. No fevers or chills. He recent admission from March 11 to was mainly secondary to ulcerative colitis flare treated with IV then PO steroids once infection was ruled out. Suspected this exacerbation was due to starting Cosentx. Hospitalization was complicated by stool culture growing blastocystitis taken prior to the admission at [facility] which was treated due to immunosuppressed state with IV metronidazole. It was also complicated by increasing LFTs with subsequent MRCP/ERCP with intrahepatic strictures consistent with diagnosis of PSC and biliary sludge removed. She was discharged 2 days previously with lower abdominal but no epigastric pain. Allergies Allergy/AdvReac Type Severity Reaction Status Date / Time acetaminophen Allergy Severe INTOLERANCE Verified 03/11/20 21:42 TO APAP hydromorphone Allergy Severe MUSCLE Verified 03/11/20 21:42 SHAKE ibuprofen Allergy Severe Intolerance Verified 03/11/20 21:42 to NSAIDS Sulfa (Sulfonamide Allergy Severe SKIN BURN Verified 03/11/20 21:42 Antibiotics) amoxicillin AdvReac Severe VOMIT Verified 03/19/20 09:34 doxycycline AdvReac Severe DIARRHEA,UT Verified 03/19/20 09:34 I,VOMIT edetic acid AdvReac Severe HEADACHES Verified 03/19/20 09:34 rifaximin AdvReac Severe HEADACHES Verified 03/19/20 09:34 risedronate sodium AdvReac Severe SHAKY/FEVER Verified 03/11/20 21:42 /VOMITING azithromycin AdvReac DIARRHEA, Verified 03/11/20 21:42 LIVER PAIN, HEADACHE leflunomide AdvReac VASCULITIS Verified 03/11/20 21:42 mesalamine [From Lialda] AdvReac MUSCLE Verified 03/11/20 21:42 SHAKES methotrexate AdvReac Vomiting Verified 03/11/20 21:42 mycophenolate mofetil AdvReac Watery Eye Verified 03/11/20 21:42 [From CellCept] ondansetron [From Zofran] AdvReac Headache Verified 03/11/20 21:42 FLOURORESIN AdvReac SKIN Uncoded 03/11/20 21:42 AROUND EYES CRACK HONEY COUGH SURUP AdvReac Joint Pain Uncoded 03/11/20 21:42 Home Medications Home Medications Medication Instructions Recorded Confirmed Type etonogestrel-ethinyl estradiol 1 ea VAGINAL DIRECTED 08/22/18 03/25/20 History [NuvaRing] Tirosint 150 mcg PO QAM 10/23/19 03/25/20 History calcium carbonate [Calcium 500] 500 mg PO BID 10/23/19 03/25/20 History fluoxetine [Prozac] 20 mg PO QAM 10/23/19 03/25/20 History omeprazole 20 mg PO QAM 10/23/19 03/25/20 History cholecalciferol (vitamin D3) 3,000 unit PO DAILY 03/11/20 03/25/20 History [Vitamin D3] dicyclomine 10 mg PO QID 03/11/20 03/25/20 History ergocalciferol (vitamin D2) 50,000 unit PO .[id number] 03/11/20 03/25/20 History [Vitamin D2] mesalamine [Apriso] 0.375 g PO QAM 03/11/20 03/25/20 History prednisone 5 mg PO UD #28 tab 03/19/20 Rx prednisone 40 mg PO DAILY 51 Days #92 tab 03/19/20 03/25/20 Rx prochlorperazine [Compazine] 25 mg [place] BID PRN #12 ea 03/19/20 03/25/20 Rx prochlorperazine maleate 10 mg PO Q8H PRN #30 tab 03/19/20 Rx [Compazine] oxycodone 5 mg PO Q6H PRN #30 cap 03/23/20 03/25/20 Rx loratadine 10 mg PO QAM 03/25/20 03/25/20 History Past Med/Surg History Medical History Allergic rhinitis Autoimmune disorder Primary sclerosing cholangitis Secondary Sjogren's syndrome Spondyloarthritis Thyroid cancer Ulcerative colitis Surgical History Hx of colonoscopy Family History Other Family history non-contributory Social History Smoking Status: Former smoker Second Hand Exposure: No; Do You Dip or Chew Tobacco: No; Tobacco Cessation Education Requested by Patient: No Hx Alcohol Use: Yes Alcohol type: wine and hard liquor Hx Substance Use: No Preferred Language: Bhutanese Communication Ability: Effective Licensing Analyst Required: No Beliefs That Will Affect Care: None Current Living Situation: Alone Other Information That Helps Us Care for You: No Feels Safe at Home: Yes Safety Concerns: Feels Safe At This Time Review of Systems Review of Systems: All systems reviewed & are unremarkable except as noted in HPI & below Physical Exam Constitutional: WD/WN, vitals as above no acute distress (does not appear to be in distress despite severity 10 pain) Eyes: + anicteric sclerae; normal pupil size ENMT: external ear and nose normal, oropharynx normal Neck: trachea midline, no thyromegaly Respiratory: normal respiratory effort, lungs clear to auscultation Cardiovascular: RRR, no murmur, no edema Gastrointestinal (Abdomen): Inspection/Auscultation: abdomen normal to inspection and normal bowel sounds Percussion/Palpation: + abdomen tender (epigastric > lower abdominal) and abdomen soft; no guarding and abdomen not rigid Musculoskeletal: no cyanosis or clubbing, extremities motor strength 5/5 Skin: no rashes, warm and dry Neurologic: moves all extremities and awake; not confused Psychiatric: A+Ox3, euthymic affect Results & Data Results & Data ([facility]) Vital Signs (Past 12 Hours) Vital Signs Temp Pulse Resp BP Pulse Ox 03/25/20 19:46 37.2 C 83 18 107/73 97 Code Status & VTE Plan Code Status Full VTE Prophylaxis Plan VTE Prophylaxis will be ordered: Yes PG Care Time/CCT Total # of Minutes Spent Total Time Spent with Patient: Total time spent is greater than 50% in coordination of care (as documented) at patient's floor/unit and/or counseling patient: Coding Level of Care Code 81486 Initial Inpt Care Lvl 3 Diagnoses Epigastric pain R10.13 Oral thrush B37.0 Post-ERCP acute pancreatitis K91.89; K85.90 Ulcerative colitis K51.018 Digestive disease complication type: other complication Ulcerative colitis location: ulcerative pancolitis Elevated LFTs R79.89 Spondyloarthritis M47.819 Hypothyroid E03.9 DVT prophylaxis Z29.9 (1) Ulcerative colitis Digestive disease complication type: other complication Ulcerative colitis location: ulcerative pancolitis Qualified Code(s): K51.018 - Ulcerative (chronic) pancolitis with other complication
[2020-03-25 21:56] LABS: INR 1.1 (0.9-1.1); Partial Thromboplastin Ratio 0.8; Partial Thromboplastin Time 22.5 Seconds (21.0-31.0); Prothrombin Time 11.9 Seconds (9.0-12.0)
[2020-03-25] MEDS: LACTATED RINGER'S 1,000 ML IV SCH (22:01)
[2020-03-25 22:04] LABS: Alanine Aminotransferase 264 U/L (12-78); Albumin Level 2.6 gm/dl (3.4-5.0); Aspartate Aminotransferase 40 U/L (15-37); BUN Creatinine Ratio 14.4 (10-20); Blood Urea Nitrogen 8 mg/dl (7-18); Calcium 8.2 mg/dl (8.5-10.1); Carbon Dioxide 25 mmol/L (21-32); Chloride 103 mmol/L (98-107); Est GFR (African American) 139.9; Est GFR (Non-African American) 120.7; Glucose 96 mg/dl (70-99); Lipase 544 U/L (73-393); Potassium 4.2 mmol/L (3.5-5.1); Sodium 135 mmol/L (136-145)
[2020-03-25] MEDS: NYSTATIN SUSP 500,000 U/5 ML UDC PO SCH (22:05)
[2020-03-25 22:06] LABS: Albumin Globulin Ratio 0.7 (0.9-2); Alkaline Phosphatase 158 U/L (45-117); Bilirubin,Total 0.4 mg/dl (0.2-1); Globulin 3.6 gm/dl (2.5-4.0); Phosphorus 2.9 mg/dl (2.5-4.9); Total Protein 6.2 gm/dl (6.4-8.2)
[2020-03-25] MEDS: CALCIUM CARBONATE 1250MG TAB PO SCH (22:11)
[2020-03-25] MEDS: DICYCLOMINE HCL 10 MG CAP PO SCH (22:11)
[2020-03-25 22:25] LABS: Basophils # (auto) 0.01 K/uL (0-0.2); Basophils % (auto) 0.1 %; Hematocrit (blood only) 32.8 % (37-47); Immature Granulocytes # (auto) 0.19 K/uL (0.00-0.02); Immature Granulocytes % (auto) 1.2 %; Lymphocytes # (auto) 1.09 K/uL (1.2-3.4); Lymphocytes % (auto) 7.1 %; Mean Corpuscular Hemoglobin 29.4 pg (25-34); Mean Corpuscular Hgb Conc 33.5 g/dL (32-36); Mean Corpuscular Volume 87.7 fL (80-100); Mean Platelet Volume 9.1 fL (7.4-10.4); Monocytes # (auto) 1.21 K/uL (0.11-0.59); Monocytes % (auto) 7.9 %; Neutrophils # (auto) 12.86 K/uL (1.4-6.5); Neutrophils % (auto) 83.7 %; Platelet Count 335 K/uL (130-400); RDW Coefficient of Variation 12.7 % (11.5-14.5); RDW Standard Deviation 40.8 fL (36.4-46.3); Red Blood Count 3.74 M/uL (4.2-5.4); White Blood Count 15.36 K/uL (4.8-10.8)
[2020-03-26] MEDS ORDERED: OMEPRAZOLE 20 MG CAPCR PO SCH ×2 (00:15→09:00)
[2020-03-26] MEDS: LACTATED RINGER'S 1,000 ML IV SCH ×4 (05:29→21:00)
[2020-03-26] MEDS: MoRPHine SULFATE 2 MG/ML CARP IV PRN ×2 (07:23→22:38)
[2020-03-26 07:32] LABS: Basophils # (auto) 0.02 K/uL (0-0.2); Basophils % (auto) 0.1 %; Eosinophils # (auto) 0.15 K/uL (0-0.5); Hematocrit (blood only) 32.7 % (37-47); Hemoglobin 10.7 g/dL (12.0-16.0); Immature Granulocytes # (auto) 0.13 K/uL (0.00-0.02); Immature Granulocytes % (auto) 0.9 %; Lymphocytes % (auto) 17.3 %; Mean Corpuscular Hemoglobin 29.3 pg (25-34); Mean Corpuscular Hgb Conc 32.7 g/dL (32-36); Mean Corpuscular Volume 89.6 fL (80-100); Mean Platelet Volume 9.1 fL (7.4-10.4); Monocytes # (auto) 1.25 K/uL (0.11-0.59); Monocytes % (auto) 8.7 %; Platelet Count 317 K/uL (130-400); RDW Coefficient of Variation 12.6 % (11.5-14.5); RDW Standard Deviation 41.2 fL (36.4-46.3); Red Blood Count 3.65 M/uL (4.2-5.4); White Blood Count 14.45 K/uL (4.8-10.8)
[2020-03-26 08:02] LABS: Albumin Globulin Ratio 0.6 (0.9-2); Albumin Level 2.2 gm/dl (3.4-5.0); BUN Creatinine Ratio 11.7 (10-20); Bilirubin,Total 0.5 mg/dl (0.2-1); Creatinine Clr Calc Pharmacy 115.8 ml/min; Est GFR (African American) 137.4; Est GFR (Non-African American) 118.6; Globulin 3.6 gm/dl (2.5-4.0); Potassium 3.3 mmol/L (3.5-5.1); Total Protein 5.8 gm/dl (6.4-8.2)
[2020-03-26] MEDS ORDERED: MESALAMINE 0.375 GM PO SCH (09:00)
[2020-03-26] MEDS ORDERED: TIROSINT PO SCH (09:00)
[2020-03-26] MEDS ORDERED: LEVOTHYROXINE 150 MCG PO SCH (09:00)
[2020-03-26] MEDS ORDERED: PANTOprazole 40 MG TAB PO SCH (09:00)
[2020-03-26] MEDS ORDERED: NON-FORMULARY MEDICATION (Omeprazole 40 MG) PO SCH (09:00)
[2020-03-26] MEDS: predniSONE 10 MG TABLET PO SCH (09:04)
[2020-03-26] MEDS: DICYCLOMINE HCL 10 MG CAP PO SCH ×4 (09:04→19:20)
[2020-03-26] MEDS: CHOLECALCIFEROL 1,000 UNITS 25 MCG TAB PO SCH (09:04)
[2020-03-26] MEDS: FLUOXETINE HCL 20 MG CAP PO SCH (09:04)
[2020-03-26] MEDS: NYSTATIN SUSP 500,000 U/5 ML UDC PO SCH ×4 (09:05→20:59)
[2020-03-26] MEDS: MESALAMINE 1 EA PO SCH (09:07)
--- NOTE | 2020-03-26 09:32 | Gastrointestinal Consultation ---
Date of Consultation March 26, 2020 Assessment & Plan (1) Post-ERCP acute pancreatitis: 34 year old female w/ PSC and UC, s/p CCY following with [facility], admitted with abdominal pain, food aversion and abnormal lipase - [facility] asked to evaluate given recent ERCP. Since admission, starting fluids w/ bowel rest her symptoms are 80% improved. She is requesting a liquids diet Trial of clear liquids If tolerates, can advance to low fat diet Would continue IV LR 200 ml/hr until tomorrow then can decrease rate Analgesia PRN Antiemetics PRN Continue QID Bentyl No need to repeat lipase pt was educated on this but is requesting this is ordered daily LFTs downtrending If symptoms return or persist, consider CT imaging Will defer any addition endoscopic evaluation or management of her chronic GI diagnosis to her regular GI team. Will sign off. Thank you for allowing us to participate in the care of this patient. Please call with any acute changes, questions or concerns. Please see addendum below with additional recommendation from my supervising physician. Present on Admission?: Yes Supervising Physician Co-Signing Physician Notes I have seen and examined the patient with JASBIR Salazar whose note reflects our findings and plan. Improvement in abd discomfort. Hungry. Numbers improving. Conservative management. History of Present Illness Reason for Consultation: ? post ercp panc Requesting Physician: Genaro Attending Physician: Raul Lam, DO History of Present Illness 34 year old female w/ PSC and UC, s/p CCY following with [facility], admitted with abdominal pain, food aversion and abnormal lipase - [facility] asked to evaluate given recent ERCP. Pt was seen and evaluated, chart reviewed. 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 Also reports she was once found to have a cyst/nodule in her CBD and Bx showed PSC. Suggests she has had post-ERCP panc x 3 before. Suggests at time of discharge was not feeling 100% but noted she wanted to go home. After discharge has had epigastric pain w/ radiation to RUQ and through to her back associated w/ mild nausea but no vomiting. Was evaluated by her PCP and she reports labs showed lipase > 900 and was advised to come ot the ED. Since arrival to the ED, symptoms nearly 80% improved. Pain less severe and less often since starting IV fluis and analgesia. Allergies Allergy/AdvReac Type Severity Reaction Status Date / Time acetaminophen Allergy Severe INTOLERANCE Verified 03/11/20 21:42 TO APAP hydromorphone Allergy Severe MUSCLE Verified 03/11/20 21:42 SHAKE ibuprofen Allergy Severe Intolerance Verified 03/11/20 21:42 to NSAIDS Sulfa (Sulfonamide Allergy Severe SKIN BURN Verified 03/11/20 21:42 Antibiotics) amoxicillin AdvReac Severe VOMIT Verified 03/19/20 09:34 doxycycline AdvReac Severe DIARRHEA,UT Verified 03/19/20 09:34 I,VOMIT edetic acid AdvReac Severe HEADACHES Verified 03/19/20 09:34 rifaximin AdvReac Severe HEADACHES Verified 03/19/20 09:34 risedronate sodium AdvReac Severe SHAKY/FEVER Verified 03/11/20 21:42 /VOMITING azithromycin AdvReac DIARRHEA, Verified 03/11/20 21:42 LIVER PAIN, HEADACHE leflunomide AdvReac VASCULITIS Verified 03/11/20 21:42 mesalamine [From Lialda] AdvReac MUSCLE Verified 03/11/20 21:42 SHAKES methotrexate AdvReac Vomiting Verified 03/11/20 21:42 mycophenolate mofetil AdvReac Watery Eye Verified 03/11/20 21:42 [From CellCept] ondansetron [From Zofran] AdvReac Headache Verified 03/11/20 21:42 FLOURORESIN AdvReac SKIN Uncoded 03/11/20 21:42 AROUND EYES CRACK HONEY COUGH SURUP AdvReac Joint Pain Uncoded 03/11/20 21:42 Home Medications Home Medications Medication Instructions Recorded Confirmed Type etonogestrel-ethinyl estradiol 1 ea VAGINAL DIRECTED 08/22/18 03/25/20 History [NuvaRing] Tirosint 150 mcg PO QAM 10/23/19 03/25/20 History calcium carbonate [Calcium 500] 500 mg PO BID 10/23/19 03/25/20 History fluoxetine [Prozac] 20 mg PO QAM 10/23/19 03/25/20 History omeprazole 20 mg PO QAM 10/23/19 03/25/20 History cholecalciferol (vitamin D3) 3,000 unit PO DAILY 03/11/20 03/25/20 History [Vitamin D3] dicyclomine 10 mg PO QID 03/11/20 03/25/20 History ergocalciferol (vitamin D2) 50,000 unit PO .[id number] 03/11/20 03/25/20 History [Vitamin D2] mesalamine [Apriso] 0.375 g PO QAM 03/11/20 03/25/20 History prednisone 5 mg PO UD #28 tab 03/19/20 Rx prednisone 40 mg PO DAILY 51 Days #92 tab 03/19/20 03/25/20 Rx prochlorperazine [Compazine] 25 mg IN BID PRN #12 ea 03/19/20 03/25/20 Rx prochlorperazine maleate 10 mg PO Q8H PRN #30 tab 03/19/20 Rx [Compazine] oxycodone 5 mg PO Q6H PRN #30 cap 03/23/20 03/25/20 Rx loratadine 10 mg PO QAM 03/25/20 03/25/20 History Patient History Medical History Allergic rhinitis Autoimmune disorder Primary sclerosing cholangitis Secondary Sjogren's syndrome Spondyloarthritis Thyroid cancer Ulcerative colitis Surgical History Hx of colonoscopy Family History Other Family history non-contributory Social History Smoking Status: Former smoker Second Hand Exposure: No; Do You Dip or Chew Tobacco: No; Tobacco Cessation Education Requested by Patient: No Hx Alcohol Use: Yes Alcohol type: wine and hard liquor Hx Substance Use: No Preferred Language: Iraqi Communication Ability: Effective Ships Or Barges Loader Required: No Beliefs That Will Affect Care: None Current Living Situation: Alone Other Information That Helps Us Care for You: No Feels Safe at Home: Yes Safety Concerns: Feels Safe At This Time Review of Systems Constitutional: no fever and no chills Respiratory: no cough Cardiovascular: no chest pain Gastrointestinal: + abdominal pain and + nausea; no coffee ground emesis, no hematemesis, no blood in stools and no melena Physical Exam Constitutional: well developed and well nourished; no acute distress Neck: trachea midline Respiratory: normal respiratory effort Gastrointestinal (Abdomen): Inspection/Auscultation: normal bowel sounds Percussion/Palpation: + abdomen tender and abdomen soft; no guarding and abdomen not rigid Skin: no rashes, warm and dry Results & Data ([facility]) Vital Signs (Past 12 Hours) Vital Signs Temp Pulse Resp BP Pulse Ox 03/26/20 07:44 37.0 C 64 16 107/76 98 03/25/20 23:11 36.9 C 65 16 101/62 98 Laboratory Results 03/26/20 03/26/20 03/25/20 Range/Units 07:07 07:07 21:36 WBC 14.45 H (4.8-10.8) K/uL RBC 3.65 L (4.2-5.4) M/uL Hgb 10.7 L (12.0-16.0) g/dL Hct 32.7 L (37-47) % MCV 89.6 (80-100) fL MCH 29.3 (25-34) pg MCHC 32.7 (32-36) g/dL RDW Std Deviation 41.2 (36.4-46.3) fL RDW Coeff of Chaim 12.6 (11.5-14.5) % Plt Count 317 (130-400) K/uL MPV 9.1 (7.4-10.4) fL Immature Gran % (Auto) 0.9 % Neut % (Auto) 72.0 % Lymph % (Auto) 17.3 % [facility] % (Auto) 8.7 % Eos % (Auto) 1.0 % Baso % (Auto) 0.1 % Neut # (Auto) 10.40 H (1.4-6.5) K/uL Lymph # (Auto) 2.50 (1.2-3.4) K/uL [facility] # (Auto) 1.25 H (0.11-0.59) K/uL Eos # (Auto) 0.15 (0-0.5) K/uL Baso # (Auto) 0.02 (0-0.2) K/uL Immature Gran # (Auto) 0.13 H (0.00-0.02) K/uL PT 11.9 (9.0-12.0) Seconds INR 1.1 (0.9-1.1) APTT 22.5 (21.0-31.0) Seconds PTT Ratio 0.8 Sodium 139 (136-145) mmol/L Potassium 3.3 L D (3.5-5.1) mmol/L Chloride 106 (98-107) mmol/L Carbon Dioxide 26 (21-32) mmol/L Anion Gap 7.0 (3-11) BUN 7 (7-18) mg/dl Creatinine 0.58 L (0.6-1.2) mg/dl Est Cr Clr Drug Dosing 115.8 Est GFR ( Amer) 137.4 Est GFR (Non-Af Amer) 118.6 BUN/Creatinine Ratio 11.7 (10-20) Glucose 81 (70-99) mg/dl Calcium 9.0 (8.5-10.1) mg/dl Phosphorus (2.5-4.9) mg/dl Magnesium (1.8-2.4) mg/dl Total Bilirubin 0.5 (0.2-1) mg/dl AST 44 H (15-37) U/L ALT 239 H (12-78) U/L Alkaline Phosphatase 141 H (45-117) U/L Total Protein 5.8 L (6.4-8.2) gm/dl Albumin 2.2 L (3.4-5.0) gm/dl Globulin 3.6 (2.5-4.0) gm/dl Albumin/Globulin Ratio 0.6 L (0.9-2) Lipase 703 H (73-393) U/L 03/25/20 03/25/20 Range/Units 21:36 21:36 WBC 15.36 H (4.8-10.8) K/uL RBC 3.74 L (4.2-5.4) M/uL Hgb 11.0 L (12.0-16.0) g/dL Hct 32.8 L (37-47) % MCV 87.7 (80-100) fL MCH 29.4 (25-34) pg MCHC 33.5 (32-36) g/dL RDW Std Deviation 40.8 (36.4-46.3) fL RDW Coeff of Chaim 12.7 (11.5-14.5) % Plt Count 335 (130-400) K/uL MPV 9.1 (7.4-10.4) fL Immature Gran % (Auto) 1.2 % Neut % (Auto) 83.7 % Lymph % (Auto) 7.1 % [facility] % (Auto) 7.9 % Eos % (Auto) 0.0 % Baso % (Auto) 0.1 % Neut # (Auto) 12.86 H (1.4-6.5) K/uL Lymph # (Auto) 1.09 L (1.2-3.4) K/uL [facility] # (Auto) 1.21 H (0.11-0.59) K/uL Eos # (Auto) 0.00 (0-0.5) K/uL Baso # (Auto) 0.01 (0-0.2) K/uL Immature Gran # (Auto) 0.19 H (0.00-0.02) K/uL PT (9.0-12.0) Seconds INR (0.9-1.1) APTT (21.0-31.0) Seconds PTT Ratio Sodium 135 L (136-145) mmol/L Potassium 4.2 (3.5-5.1) mmol/L Chloride 103 (98-107) mmol/L Carbon Dioxide 25 (21-32) mmol/L Anion Gap 7.0 (3-11) BUN 8 (7-18) mg/dl Creatinine 0.55 L (0.6-1.2) mg/dl Est Cr Clr Drug Dosing Not Reportable Est GFR ( Amer) 139.9 Est GFR (Non-Af Amer) 120.7 BUN/Creatinine Ratio 14.4 (10-20) Glucose 96 (70-99) mg/dl Calcium 8.2 L (8.5-10.1) mg/dl Phosphorus 2.9 (2.5-4.9) mg/dl Magnesium 2.0 (1.8-2.4) mg/dl Total Bilirubin 0.4 (0.2-1) mg/dl AST 40 H (15-37) U/L ALT 264 H (12-78) U/L Alkaline Phosphatase 158 H (45-117) U/L Total Protein 6.2 L (6.4-8.2) gm/dl Albumin 2.6 L (3.4-5.0) gm/dl Globulin 3.6 (2.5-4.0) gm/dl Albumin/Globulin Ratio 0.7 L (0.9-2) Lipase 544 H (73-393) U/L
[2020-03-26] MEDS ORDERED: POTASSIUM CHLORIDE 20 MEQ/15 ML UDC PO STA (09:50)
[2020-03-26] MEDS: OXYCODONE HCL IR 5 MG TAB (IMMEDIATE RELEASE) PO PRN ×2 (11:51→19:19)
--- NOTE | 2020-03-26 15:02 | Hospitalist Progress Note ---
Date of Service March 26, 2020 Assessment & Plan (1) Post-ERCP acute pancreatitis: Abdominal pain right upper quadrant to mid upper abdomen, improved Consulted GI - recommends continuing LR @ 200 mls for 24 hours and then can decrease Trial clear liquids and then advance as tolerated If symptoms worsen, will send for CT a/p but at present she is much improved from admission (2) Oral thrush: Right posterior oropharynx EGD was performed three days ago and no candidiasis was seen in the esophagus so unlikely this is contributing to her abdominal pain Continue Nystatin 10ml QID No fever to suggest candidemia - will defer blood cultures (3) Ulcerative colitis: Down to 35mg prednisone daily taper after recent flare up. (4) Elevated LFTs: Continues to trend down following recent cholecystectomy and ERCP (5) Spondyloarthritis: (6) Hypothyroid: Continue Tirosint 150mcg PO daily, 300 mcg on Sundays (7) Hypokalemia: Replaced, bmp am (8) DVT prophylaxis: No chemical prophylaxis indicated given low risk. [facility] Admission and Anticipated Discharge Date Admission Date: March 25, 2020 Subjective Ms. Dunne is feeling much better this morning. Her pain is under control. She is not nauseas or vomiting. ROS Constitutional: no chills, aches, sweats or fever Respiratory: no sob,cough, sputum, or wheezing Cardiac: no chest pain, palpitations, edema, orthopnea or lightheadedness GI: no abdominal pain, nausea, vomiting, diarrhea or constipation : no dysuria or hesitancy Extremities: no joint pain or weakness Skin: no rash All other systems reviewed and negative Physical Exam Physical Exam: General: no distress Eyes: normal inspection, PERLL Respiratory: chest non tender, clear to auscultation, normal breath sounds, no respiratory distress, no accessory muscle use Cardiac: regular rate and rhythm, no rub or gallop, no murmur, no edema, no jvd GI/: active bowel sounds, abdomen diffusely tender, soft, non distended Extremities: normal range of motion, normal strength, non tender Neuro/Psych: alert and oriented x 3, normal mood and affect Skin: normal color, dry Results & Data Results & Data ([facility]) Vital Signs (Past 12 Hours) Vital Signs Temp Pulse Resp BP Pulse Ox 03/26/20 07:44 37.0 C 64 16 107/76 98 PG Care Time/CCT Total # of Minutes Spent Total Time Spent with Patient: Total time spent is greater than 50% in coordination of care (as documented) at patient's floor/unit and/or counseling patient: Coding Level of Care Code 28804 Subseq Hosp Care Lvl 2 Diagnoses Post-ERCP acute pancreatitis K91.89; K85.90 Oral thrush B37.0 Ulcerative colitis K51.018 Ulcerative colitis location: ulcerative pancolitis Digestive disease complication type: other complication Elevated LFTs R79.89 Spondyloarthritis M47.819 Hypothyroid E03.9 Hypokalemia E87.6 DVT prophylaxis Z29.9 (1) Ulcerative colitis Ulcerative colitis location: ulcerative pancolitis Digestive disease complication type: other complication Qualified Code(s): K51.018 - Ulcerative (chronic) pancolitis with other complication
[2020-03-26] MEDS: CALCIUM CARBONATE 1250MG TAB PO SCH (19:20)
[2020-03-27] MEDS ORDERED: DiphenhydrAMINE HCL 50 MG/ML VIAL IV STA (00:24)
[2020-03-27] MEDS ORDERED: DiphenhydrAMINE HCL 50 MG/ML VIAL ONE (00:28)
[2020-03-27] MEDS: LACTATED RINGER'S 1,000 ML IV SCH ×5 (02:05→22:30)
[2020-03-27] MEDS: OXYCODONE HCL IR 5 MG TAB (IMMEDIATE RELEASE) PO PRN ×4 (02:50→21:38)
[2020-03-27] MEDS: TIROSINT PO SCH (06:23)
[2020-03-27] MEDS: OMEPRAZOLE 20 MG CAPCR PO SCH (06:23)
[2020-03-27] MEDS: DICYCLOMINE HCL 10 MG CAP PO SCH ×4 (09:07→21:43)
[2020-03-27] MEDS: CHOLECALCIFEROL 1,000 UNITS 25 MCG TAB PO SCH (09:08)
[2020-03-27] MEDS: predniSONE 10 MG TABLET PO SCH (09:08)
[2020-03-27] MEDS: MESALAMINE 1 EA PO SCH (09:08)
[2020-03-27] MEDS: NYSTATIN SUSP 500,000 U/5 ML UDC PO SCH ×4 (09:09→21:43)
[2020-03-27] MEDS: FLUOXETINE HCL 20 MG CAP PO SCH (09:09)
[2020-03-27 09:35] LABS: Basophils # (auto) 0.01 K/uL (0-0.2); Basophils % (auto) 0.1 %; Eosinophils # (auto) 0.09 K/uL (0-0.5); Eosinophils % (auto) 0.7 %; Hematocrit (blood only) 34.5 % (37-47); Hemoglobin 11.4 g/dL (12.0-16.0); Immature Granulocytes # (auto) 0.09 K/uL (0.00-0.02); Immature Granulocytes % (auto) 0.7 %; Lymphocytes # (auto) 2.13 K/uL (1.2-3.4); Lymphocytes % (auto) 17.2 %; Mean Corpuscular Hemoglobin 29.8 pg (25-34); Mean Corpuscular Volume 90.3 fL (80-100); Mean Platelet Volume 8.7 fL (7.4-10.4); Monocytes # (auto) 0.81 K/uL (0.11-0.59); Monocytes % (auto) 6.5 %; Neutrophils # (auto) 9.25 K/uL (1.4-6.5); Neutrophils % (auto) 74.8 %; Platelet Count 345 K/uL (130-400); RDW Coefficient of Variation 12.7 % (11.5-14.5); RDW Standard Deviation 41.6 fL (36.4-46.3); Red Blood Count 3.82 M/uL (4.2-5.4); White Blood Count 12.38 K/uL (4.8-10.8)
[2020-03-27 10:08] LABS: Alanine Aminotransferase 169 U/L (12-78); Albumin Level 2.2 gm/dl (3.4-5.0); Alkaline Phosphatase 133 U/L (45-117); Aspartate Aminotransferase 24 U/L (15-37); Bilirubin Direct < 0.1 mg/dl (0-0.2); Bilirubin,Total 0.4 mg/dl (0.2-1); Lipase 677 U/L (73-393); Total Protein 5.4 gm/dl (6.4-8.2)
[2020-03-27 10:10] LABS: BUN Creatinine Ratio 6.5 (10-20); Calcium 8.5 mg/dl (8.5-10.1); Est GFR (African American) 102.2; Est GFR (Non-African American) 88.2; Potassium 3.1 mmol/L (3.5-5.1)
--- NOTE | 2020-03-27 10:33 | Hospitalist Progress Note ---
Date of Service March 27, 2020 Assessment & Plan (1) Post-ERCP acute pancreatitis: Abdominal pain right upper quadrant to mid upper abdomen, improved Consulted GI - recommends continuing LR @ 200 mls for 24 hours and then can decrease Trial clear liquids and then advance as tolerated Suspect pain today with difficulty starting to urinate due to constipation (no BM since Monday) Discussed with GI team --> ordered tap water enema to prevent irritation with patient with UC. Will also collect UA to make sure no infection. If symptoms worsen (laura after BM) will send for CT a/p but at present she is much improved from admission. Lipase continuing to trend down Clear liquid diet for now (2) Oral thrush: Right posterior oropharynx EGD was performed four days ago and no candidiasis was seen in the esophagus per discussion with GI team, so unlikely this is contributing to her abdominal pain Continue Nystatin 10ml QID No fever to suggest candidemia - will defer blood cultures (3) Ulcerative colitis: Down to 35mg prednisone daily taper after recent flare up. (4) Elevated LFTs: Continues to trend down following recent cholecystectomy and ERCP (5) Spondyloarthritis: (6) Hypothyroid: Continue Tirosint 150mcg PO daily, 300 mcg on Sundays (7) Hypokalemia: K 3.1-- 40meq replacement ordered Vit D, PTH added to labs BMP in AM (8) DVT prophylaxis: No chemical prophylaxis indicated given low risk. [facility] Admission and Anticipated Discharge Date Admission Date: March 25, 2020 Subjective Patient with increased nausea/abdominal pain. No bowel movement since monday. Would like to get cleaned up today. Will replace potassium and possible repeat CT this afternoon if abd pain increases/unsuccessful BM. Will reach out to [facility] GI team prior to ordering suppository as she has reservations with her UC. Denies f/c/sob/cp at this time. Does have some difficulty with initiating voiding. Discussed nursing to obtain urine to make sure no infection. Review of Systems Review of Systems: All systems reviewed & are unremarkable except as noted in HPI & below Physical Exam Constitutional: WD/WN, vitals as above no acute distress Eyes: + anicteric sclerae; normal pupil size ENMT: external ear and nose normal, oropharynx normal Neck: trachea midline, no thyromegaly Respiratory: normal respiratory effort, lungs clear to auscultation Cardiovascular: RRR, no murmur, no edema Gastrointestinal (Abdomen): Inspection/Auscultation: abdomen normal to inspection and normal bowel sounds Percussion/Palpation: + abdomen tender (minimal generalized) and abdomen soft; no guarding and abdomen not rigid Musculoskeletal: no cyanosis or clubbing, extremities motor strength 5/5 Skin: no rashes, warm and dry Neurologic: moves all extremities and awake; not confused Psychiatric: A+Ox3, euthymic affect Lymphatic: no cervical or axillary lymphadenopathy Results & Data Results & Data ([facility]) Vital Signs (Past 12 Hours) Vital Signs Temp Pulse Resp BP BP Pulse Ox 03/27/20 07:29 37.5 C 89 16 105/72 96 03/26/20 23:34 37.3 C 63 16 107/63 99 Laboratory Results 03/27/20 03/27/20 03/27/20 Range/Units 13:05 13:05 09:42 WBC (4.8-10.8) K/uL RBC (4.2-5.4) M/uL Hgb (12.0-16.0) g/dL Hct (37-47) % MCV (80-100) fL MCH (25-34) pg MCHC (32-36) g/dL RDW Std Deviation (36.4-46.3) fL RDW Coeff of Chaim (11.5-14.5) % Plt Count (130-400) K/uL MPV (7.4-10.4) fL Immature Gran % (Auto) % Neut % (Auto) % Lymph % (Auto) % [place] % (Auto) % Eos % (Auto) % Baso % (Auto) % Neut # (Auto) (1.4-6.5) K/uL Lymph # (Auto) (1.2-3.4) K/uL [place] # (Auto) (0.11-0.59) K/uL Eos # (Auto) (0-0.5) K/uL Baso # (Auto) (0-0.2) K/uL Immature Gran # (Auto) (0.00-0.02) K/uL Sodium 138 (136-145) mmol/L Potassium 3.1 L (3.5-5.1) mmol/L Chloride 103 (98-107) mmol/L Carbon Dioxide 29 (21-32) mmol/L Anion Gap 6.0 (3-11) BUN 6 L (7-18) mg/dl Creatinine 0.85 (0.6-1.2) mg/dl Est Cr Clr Drug Dosing 79.0 ml/min Est GFR ( Amer) 102.2 Est GFR (Non-Af Amer) 88.2 BUN/Creatinine Ratio 6.5 L (10-20) Glucose 113 H (70-99) mg/dl Calcium 8.5 (8.5-10.1) mg/dl Total Bilirubin (0.2-1) mg/dl Direct Bilirubin (0-0.2) mg/dl AST (15-37) U/L ALT (12-78) U/L Alkaline Phosphatase (45-117) U/L Total Protein (6.4-8.2) gm/dl Albumin (3.4-5.0) gm/dl Lipase (73-393) U/L 25-OH Vitamin D Total Pending PTH Intact Pending 03/27/20 03/27/20 Range/Units 09:12 09:12 WBC 12.38 H (4.8-10.8) K/uL RBC 3.82 L (4.2-5.4) M/uL Hgb 11.4 L (12.0-16.0) g/dL Hct 34.5 L (37-47) % MCV 90.3 (80-100) fL MCH 29.8 (25-34) pg MCHC 33.0 (32-36) g/dL RDW Std Deviation 41.6 (36.4-46.3) fL RDW Coeff of Chaim 12.7 (11.5-14.5) % Plt Count 345 (130-400) K/uL MPV 8.7 (7.4-10.4) fL Immature Gran % (Auto) 0.7 % Neut % (Auto) 74.8 % Lymph % (Auto) 17.2 % [place] % (Auto) 6.5 % Eos % (Auto) 0.7 % Baso % (Auto) 0.1 % Neut # (Auto) 9.25 H (1.4-6.5) K/uL Lymph # (Auto) 2.13 (1.2-3.4) K/uL [place] # (Auto) 0.81 H (0.11-0.59) K/uL Eos # (Auto) 0.09 (0-0.5) K/uL Baso # (Auto) 0.01 (0-0.2) K/uL Immature Gran # (Auto) 0.09 H (0.00-0.02) K/uL Sodium (136-145) mmol/L Potassium (3.5-5.1) mmol/L Chloride (98-107) mmol/L Carbon Dioxide (21-32) mmol/L Anion Gap (3-11) BUN (7-18) mg/dl Creatinine (0.6-1.2) mg/dl Est Cr Clr Drug Dosing ml/min Est GFR ( Amer) Est GFR (Non-Af Amer) BUN/Creatinine Ratio (10-20) Glucose (70-99) mg/dl Calcium (8.5-10.1) mg/dl Total Bilirubin 0.4 (0.2-1) mg/dl Direct Bilirubin < 0.1 (0-0.2) mg/dl AST 24 (15-37) U/L ALT 169 H (12-78) U/L Alkaline Phosphatase 133 H (45-117) U/L Total Protein 5.4 L (6.4-8.2) gm/dl Albumin 2.2 L (3.4-5.0) gm/dl Lipase 677 H (73-393) U/L 25-OH Vitamin D Total PTH Intact PG Care Time/CCT Total # of Minutes Spent Total Time Spent with Patient: Total time spent is greater than 50% in coordination of care (as documented) at patient's floor/unit and/or counseling patient: Coding Level of Care Code 45171 Subseq Hosp Care Lvl 2 Diagnoses Post-ERCP acute pancreatitis K91.89; K85.90 Oral thrush B37.0 Ulcerative colitis K51.018 Ulcerative colitis location: ulcerative pancolitis Digestive disease complication type: other complication Elevated LFTs R79.89 Spondyloarthritis M47.819 Hypothyroid E03.9 Hypokalemia E87.6 DVT prophylaxis Z29.9 (1) Ulcerative colitis Ulcerative colitis location: ulcerative pancolitis Digestive disease complication type: other complication Qualified Code(s): K51.018 - Ulcerative (chronic) pancolitis with other complication
[2020-03-27] MEDS ORDERED: POTASSIUM CHLORIDE 20 MEQ/15 ML UDC PO STA (11:01)
[2020-03-27] MEDS ORDERED: bisacodyL 10 MG SUPP PR STA (11:23)
[2020-03-27] MEDS ORDERED: bisacodyL 10 MG SUPP PR ONE (14:29)
--- NOTE | 2020-03-27 15:23 | XRay Report ---
KUB HISTORY: Acute generalized abdominal pain with constipation f/u, constipation COMPARISON: CT abdomen and pelvis 03/11/2020 FINDINGS: Gaseous distention of the transverse colon. There is moderate fecal retention of the ascend ing, descending and sigmoid colon. Cholecystectomy. No renal calculi. No ureteral calculi. No pneumo peritoneum or pneumatosis. No fracture. IMPRESSION: Mild gaseous distention of the colon with moderate fecal retention of the ascending, descending and s igmoid colon. ACT 112: Negative or not required by law. The above report was generated using voice recognition software. It may contain grammatical, syntax o r spelling errors. Electronically signed by: Isaac Ramirez M.D. 03/27/2020 3:22 PM
[2020-03-27] MEDS: MoRPHine SULFATE 2 MG/ML CARP IV PRN (18:41)
[2020-03-27 19:18] LABS: Appearance Urine Clear (Clear); Bacteria Urine Automated Negative (Negative); Bilirubin Urine Negative (Negative); Blood Urine 1+ (Negative); Cast Urine Automated 0 /lpf (0-5); Color Urine Yellow; Epithelial Cell Urine Auto 0-5 /lpf (0-5); Glucose Urine UA Negative (Negative); Ketones Urine Negative (Negative); Leukocyte Esterase Urine Negative (Negative); Nitrite Urine Negative (Negative); Protein Urine Negative (Negative); Specific Gravity Urine 1.006 (1.000-1.030); Urobilinogen Urine Negative (Negative); pH Urine 7.5 (4.5-7.5)
[2020-03-27] MEDS: CALCIUM CARBONATE 1250MG TAB PO SCH (21:42)
[2020-03-27] MEDS ORDERED: IOVERSOL 100ml IV ONE (23:17)
[2020-03-28] MEDS: MoRPHine SULFATE 2 MG/ML CARP IV PRN ×3 (00:06→07:24)
--- NOTE | 2020-03-28 01:28 | Communication Note ---
Date of Service: March 28, 2020 Multiple trips made to this patient's room overnight. States she was having increased abdominal pain and right flank pain. States pain is not her typical pain. Stat CT abd/pelvis ordered, c diff testing given pt's report of watery diarrhea though she tells me she received treatment for noted constipation on KUB. Given pt is receiving oxycodone 10mg q6h AND morphine 2mg IV q4h right on schedule, hesitant to add/increase any additional narcotics. AM labs ordered as well as repeat lipase. Pt demanding to see GI, advised would pass on to day team. Believes she had a fever, however she was also using a heating pad ordered overnight as well. Of note, pt completed course of abx for enteritis noted on 03/11 CT, currently on Prednisone taper for UC flare. 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
[2020-03-28] MEDS: LACTATED RINGER'S 1,000 ML IV SCH ×2 (03:37→08:35)
[2020-03-28] MEDS: OXYCODONE HCL IR 5 MG TAB (IMMEDIATE RELEASE) PO PRN ×2 (03:52→09:29)
[2020-03-28] MEDS: OMEPRAZOLE 20 MG CAPCR PO SCH (07:18)
[2020-03-28] MEDS: TIROSINT PO SCH (07:19)
--- NOTE | 2020-03-28 08:56 | CT Scan Report ---
ABDOMEN AND PELVIS CT WITH IV CONTRAST CT DOSE: 303.89 mGy.cm HISTORY: Right lower quadrant pain. TECHNIQUE: Multiaxial CT images of the abdomen and pelvis were performed following the use of intrave nous contrast. A dose lowering technique was utilized adhering to the principles of ALARA. COMPARISON STUDY: Abdomen and pelvis CT 03/11/2020. FINDINGS: The lung bases are clear. No pneumoperitoneum. No pneumatosis. Scattered sclerotic foci wit hin the pelvis are again noted. These favor bone islands. Prior cholecystectomy and pneumobilia, unch anged. No hepatic or splenic masses. The adrenal glands, pancreas, and kidneys are unremarkable. No h ydronephrosis. No retroperitoneal lymphadenopathy. The bladder, uterus, bilateral adnexa are unremark able. Trace pelvic free fluid. No evidence for bowel obstruction. Ggmh-tv-nnuzhsct bowel wall thicken ing involving the ascending colon and majority of the transverse colon. This is consistent with a non specific colitis and favors an infectious or inflammatory process. Prominent appendix measuring up to 9 mm. No periappendiceal fat stranding to suggest acute appendicitis. Therefore, this could be secon fabrice to the colitis. IMPRESSION: 1. Qzwu-tl-xahvdyzm bowel wall thickening involving the ascending colon and majority of the transvers e colon consistent with a nonspecific colitis. This favors an infectious or inflammatory process. 2. Prominent appendix measuring up to 9 mm. No periappendiceal fat stranding to suggest acute appendi citis. Therefore, this could be secondary to the colitis. This could be reassessed at the patient's s ymptoms continue to progress. ACT 112: Negative or not required by law. Electronically signed by: Ollie Castillo M.D. 03/28/2020 8:55 AM
[2020-03-28 09:17] LABS: Basophils # (auto) 0.01 K/uL (0-0.2); Basophils % (auto) 0.1 %; Eosinophils # (auto) 0.09 K/uL (0-0.5); Eosinophils % (auto) 0.6 %; Hematocrit (blood only) 32.4 % (37-47); Hemoglobin 10.5 g/dL (12.0-16.0); Immature Granulocytes # (auto) 0.09 K/uL (0.00-0.02); Immature Granulocytes % (auto) 0.6 %; Lymphocytes # (auto) 1.97 K/uL (1.2-3.4); Lymphocytes % (auto) 13.9 %; Mean Corpuscular Hemoglobin 29.1 pg (25-34); Mean Corpuscular Hgb Conc 32.4 g/dL (32-36); Mean Corpuscular Volume 89.8 fL (80-100); Monocytes # (auto) 1.47 K/uL (0.11-0.59); Monocytes % (auto) 10.4 %; Neutrophils % (auto) 74.4 %; Platelet Count 312 K/uL (130-400); RDW Coefficient of Variation 12.7 % (11.5-14.5); RDW Standard Deviation 41.6 fL (36.4-46.3); Red Blood Count 3.61 M/uL (4.2-5.4); White Blood Count 14.13 K/uL (4.8-10.8)
[2020-03-28] MEDS: LIDOCAINE 5% 1 PATCH TD SCH (09:17)
[2020-03-28] MEDS: predniSONE 10 MG TABLET PO SCH (09:30)
[2020-03-28] MEDS: CHOLECALCIFEROL 1,000 UNITS 25 MCG TAB PO SCH (09:31)
[2020-03-28] MEDS: FLUOXETINE HCL 20 MG CAP PO SCH (09:32)
[2020-03-28] MEDS: DICYCLOMINE HCL 10 MG CAP PO SCH ×4 (09:32→21:34)
[2020-03-28] MEDS: NYSTATIN SUSP 500,000 U/5 ML UDC PO SCH ×4 (09:32→21:34)
[2020-03-28] MEDS: MESALAMINE 1 EA PO SCH (09:34)
[2020-03-28] MEDS: PROCHLORPERAZINE 5 MG in SYRINGE 4 ML IV PRN ×2 (09:52→21:57)
[2020-03-28] MEDS ORDERED: PIPERACILL/TAZOBAC CONSULT ACTIVE PRN (10:22)
[2020-03-28] MEDS ORDERED: PIPERACILLIN/TAZOBACTAM 4.5 GM in DEXTROSE 5% 100 ML IV STA (10:22)
[2020-03-28] MEDS ORDERED: PIPERACILLIN/TAZOBACTAM 4.5 GM in DEXTROSE 5% 100 ML IV ONE (11:00)
[2020-03-28 11:21] LABS: BUN Creatinine Ratio 7.9 (10-20); Calcium 8.5 mg/dl (8.5-10.1); Creatinine Clr Calc Pharmacy 101.8 ml/min; Est GFR (African American) 131.7; Est GFR (Non-African American) 113.6
[2020-03-28 11:23] LABS: Albumin Globulin Ratio 0.6 (0.9-2); Bilirubin,Total 0.7 mg/dl (0.2-1); Globulin 3.1 gm/dl (2.5-4.0); Total Protein 5.1 gm/dl (6.4-8.2)
[2020-03-28] MEDS ORDERED: POTASSIUM CHLORIDE 20 MEQ/15 ML UDC PO ONE (12:30)
[2020-03-28] MEDS: NSS + 20MEQ KCL 20 MEQ/1,000 ML BAG IV SCH ×2 (13:00→21:26)
--- NOTE | 2020-03-28 13:10 | Hospitalist Progress Note ---
Date of Service March 28, 2020 Assessment & Plan (1) Sepsis: CT abd overnight showing colitis and large appendix without stranding. Pancreas appears normal. Febrile, tachycardic, hypotensive Continue IVF NSS 20K @ 125 mls Start Zosyn Repeat CT with oral and IV contrast pending Reconsulted GI, appreciate assitance Transfer to PCU (2) Post-ERCP acute pancreatitis: Abdominal pain right upper quadrant to mid upper abdomen, acute worsening today Consulted GI - recommends continuing LR @ 200 mls for 24 hours and then can decrease - will decrease to 125 mls/hr 03/27 pain with difficulty starting to urinate due to constipation (no BM since ) Discussed with GI team --> ordered tap water enema 03/27 NPO given renewed symptoms (3) Oral thrush: Right posterior oropharynx EGD was performed three days ago and no candidiasis was seen in the esophagus so unlikely this is contributing to her abdominal pain Continue Nystatin 10ml QID BC drawn today (4) Ulcerative colitis: Down to 35mg prednisone daily taper after recent flare up. Repeat CT overnight showing colitis (5) Elevated LFTs: Continues to trend down following recent cholecystectomy and ERCP (6) Spondyloarthritis: (7) Hypothyroid: Continue Tirosint 150mcg PO daily, 300 mcg on Sundays (8) Hypokalemia: Replaced, added 20K to IVF (9) DVT prophylaxis: No chemical prophylaxis indicated given low risk. [facility] [place] and Anticipated Discharge Date Admission Date: March 25, 2020 Supervising Physician Co-Signing Physician Notes Patient seen and examined with Caren MARTELL. I agree with the assessment and plan. I personally reviewed the lab work and imaging as well. I discussed the patient with Dr. Mills. He feels that all her symptoms are due to colitis. Leukocytosis can be attributed to steroid use. reviewed CT, shows progression of colitis and some progression of colon distension. Appendix enlarged but no fat stranding to suggest appendicitis On exam the patient does not look as bad as her vitals. She is calm, no distress, mentating clearly. We discussed her abdominal pain, it is all right lower quadrant, no epigastric pain. She has active bowel sounds. No peritoneal signs at all, abdomen is soft, no rebound tenderness, no rigidity. She is tender to palpation in RLQ. Lungs CTA, normal respiratory effort, heart tachycaric. Recommend that we move patient to PCU for closer monitoring on tele since she became hypotensive and tachycardic. Already with fluids running at 250cc/hr, she is positive 7 liters for admission. - Post ERCP pancreatitis: resolved, lipase down to normal - Acute colitis, abdominal pain, possible sepsis with hypotension and tachycardia move to PCU, start on Zosyn, follow up blood cultures, get lactic acid Subjective This morning Ms. Dunne is very painful in her abdomen. She reports as much as 50 bowel movements, going constantly overnight. She is tachycardic and hypotensive with fever overnight. ROS Constitutional: no chills, aches, sweats or fever Respiratory: no sob,cough, sputum, or wheezing Cardiac: no chest pain, palpitations, edema, orthopnea or lightheadedness GI: no abdominal pain, nausea, vomiting, diarrhea or constipation : no dysuria or hesitancy Extremities: no joint pain or weakness Skin: no rash All other systems reviewed and negative Physical Exam Physical Exam: General: no distress Eyes: normal inspection, PERLL Respiratory: chest non tender, clear to auscultation, normal breath sounds, no respiratory distress, no accessory muscle use Cardiac: regular rate and rhythm, no rub or gallop, no murmur, no edema, no jvd GI/: active bowel sounds, tender abdomen especially right side, soft, non distended Extremities: normal range of motion, normal strength, non tender Neuro/Psych: alert and oriented x 3, normal mood and affect Skin: normal color, dry Results & Data Results & Data ([facility]) Vital Signs (Past 12 Hours) Vital Signs Temp Pulse Pulse Resp BP Pulse Ox 03/28/20 11:55 36.7 C 111 H 20 88/56 L 95 03/28/20 09:56 37.6 C H 138 H 88/62 L 95 03/28/20 08:00 38.1 C H 125 H 18 97/58 L 98 03/28/20 03:07 38.4 C H PG Care Time/CCT Total # of Minutes Spent Total Time Spent with Patient: Total time spent is greater than 50% in coordination of care (as documented) at patient's floor/unit and/or counseling patient: Coding Level of Care Code 80759 Subseq Hosp Care Lvl 3 Diagnoses Sepsis A41.9 Post-ERCP acute pancreatitis K91.89; K85.90 Oral thrush B37.0 Ulcerative colitis K51.018 Digestive disease complication type: other complication Ulcerative colitis location: ulcerative pancolitis Elevated LFTs R79.89 Spondyloarthritis M47.819 Hypothyroid E03.9 Hypokalemia E87.6 DVT prophylaxis Z29.9 (1) Ulcerative colitis Digestive disease complication type: other complication Ulcerative colitis location: ulcerative pancolitis Qualified Code(s): K51.018 - Ulcerative (chronic) pancolitis with other complication
[2020-03-28] MEDS: MoRPHine SULFATE 4 MG/ML 1 ML CARP\\VIAL IV PRN ×4 (13:18→21:58)
--- NOTE | 2020-03-28 14:12 | Gastroenterology Progress Note ---
Date of Service March 28, 2020 Assessment & Plan (1) Post-ERCP acute pancreatitis: (2) Elevated LFTs: (3) Abdominal pain: (4) Ulcerative colitis: She is drinking oral contrast for repeat CT scan today Continue Prednisone taper Liver panel and Lipase improved, with no evidence of pancreatitis on CT imaging yesterday Most likely cause of slight elevation in WBC count is corticosteroid therapy Would discontinue Narcotic analgesia, as it is not a treatment for IBD, and no further evidence of Pancreatitis both from lab tests or CT imaging. Recommend followup with outpatient Primary GI team Admission and Anticipated Discharge Date Admission Date: March 25, 2020 Subjective I was asked to see the patient today for worsening reports of worsening of abdominal pain and fevers. At the time that I saw the patient, she was resting comfortably in bed. She complained of RLQ abdominal pain rated 4/10 in intensity, non-radiating without exacerbating factors, though relieved slightly with narcotic analgesics. She states that she no longer feels warm. She does report up to 50 liquid BM's overnight, without blood. She states she is concerned it is her appendix, due to an enlarged appendix as seen on CT scan from last night. She inquires about her lipase, which has normalized, and was informed that her liver panel has improved. She states that she is to begin Stelara upon discharge from the hospital from her primary GI team at [facility]. She has no further complaints. Review of Systems Review of Systems: All systems reviewed & are unremarkable except as noted in HPI & below Physical Exam Constitutional: WD/WN, vitals as above Eyes: PERRL, conjunctivae normal, anicteric sclerae ENMT: external ear and nose normal, oropharynx normal Neck: trachea midline, no thyromegaly Respiratory: normal respiratory effort, lungs clear to auscultation Cardiovascular: RRR, no murmur, no edema Gastrointestinal (Abdomen): normal bowel sounds, soft, nontender, no hepatosplenomegaly Skin: no rashes, warm and dry Psychiatric: A+Ox3, euthymic affect Results & Data Results & Data ([facility]) Vital Signs (Past 12 Hours) Vital Signs Temp Pulse Pulse Resp BP Pulse Ox 03/28/20 11:55 36.7 C 111 H 20 88/56 L 95 03/28/20 09:56 37.6 C H 138 H 88/62 L 95 03/28/20 08:00 38.1 C H 125 H 18 97/58 L 98 03/28/20 03:07 38.4 C H PG Care Time/CCT Total # of Minutes Spent Total Time Spent with Patient: Total time spent is greater than 50% in coordination of care (as documented) at patient's floor/unit and/or counseling patient: Coding Level of Care Code 01869 Subseq Hosp Care Lvl 3 Diagnoses Post-ERCP acute pancreatitis K91.89; K85.90 Elevated LFTs R79.89 Abdominal pain R10.33 Abdominal location: periumbilical Ulcerative colitis K51.90 (1) Abdominal pain Abdominal location: periumbilical Qualified Code(s): R10.33 - Periumbilical pain
[2020-03-28] MEDS ORDERED: IOVERSOL 100ml IV ONE (14:38)
--- NOTE | 2020-03-28 14:57 | CT Scan Report ---
ABDOMEN AND PELVIS CT WITH IV AND ORAL CONTRAST CT DOSE: 303.39 mGy.cm HISTORY: Sepsis. Generalized abdominal pain. TECHNIQUE: Multiaxial CT images of the abdomen and pelvis were performed following the use of intrave nous and oral contrast. A dose lowering technique was utilized adhering to the principles of ALARA. COMPARISON STUDY: Abdomen and pelvis CT 03/27/2020. FINDINGS: The lung bases are clear. No pneumoperitoneum. No pneumatosis. Scattered sclerotic foci wit hin the pelvis are again noted. These favor bone islands. Prior cholecystectomy and pneumobilia, unch anged. No hepatic or splenic masses. The adrenal glands, pancreas, and kidneys are unremarkable. No h ydronephrosis. No retroperitoneal lymphadenopathy. The bladder, uterus, bilateral adnexa are unremark able. Trace pelvic free fluid. No evidence for bowel obstruction. Moderate bowel wall thickening invo lving the ascending colon, transverse colon, and descending colon. This is consistent with a nonspeci fic colitis and favors an infectious or inflammatory process. This is slightly progressed. There is a lso been slight progression of the distention of the proximal to mid colon. The transverse colon kamilah ures up to 7 cm in diameter. Prominent appendix measuring up to 9 mm. No periappendiceal fat strandin g to suggest acute appendicitis. Therefore, this could be secondary to the colitis. This remains unch anged. IMPRESSION: 1. Moderate bowel wall thickening involving the colon consistent with a nonspecific colitis. This fav ors an infectious or inflammatory process. This has progressed in the interval. The colon is also mil dly distended which has slightly progressed. 2. Prominent appendix measuring up to 9 mm. No periappendiceal fat stranding to suggest acute appendi citis. Therefore, this could be secondary to the colitis. This remains unchanged ACT 112: Negative or not required by law. Electronically signed by: Ollie Castillo M.D. 03/28/2020 2:56 PM
[2020-03-28] MEDS: PIPERACILLIN/TAZOBACTAM 3.375 GM in DEXTROSE 5% 100 ML IV SCH (17:57)
[2020-03-29] MEDS: MoRPHine SULFATE 4 MG/ML 1 ML CARP\\VIAL IV PRN ×8 (00:43→22:58)
[2020-03-29] MEDS: PIPERACILLIN/TAZOBACTAM 3.375 GM in DEXTROSE 5% 100 ML IV SCH ×4 (00:47→22:58)
[2020-03-29] MEDS: NSS + 20MEQ KCL 20 MEQ/1,000 ML BAG IV SCH ×3 (05:29→21:28)
[2020-03-29] MEDS ORDERED: TIROSINT PO SCH ×2 (06:00→09:00)
[2020-03-29 06:03] LABS: Hematocrit (blood only) 30.9 % (37-47); Hemoglobin 10.2 g/dL (12.0-16.0); Mean Corpuscular Volume 90.9 fL (80-100); Mean Platelet Volume 8.7 fL (7.4-10.4); Platelet Count 346 K/uL (130-400); RDW Coefficient of Variation 12.9 % (11.5-14.5); RDW Standard Deviation 42.8 fL (36.4-46.3); White Blood Count 10.86 K/uL (4.8-10.8)
[2020-03-29 06:51] LABS: Alanine Aminotransferase 94 U/L (12-78); Albumin Globulin Ratio 0.7 (0.9-2); Albumin Level 2.1 gm/dl (3.4-5.0); Alkaline Phosphatase 103 U/L (45-117); BUN Creatinine Ratio 5.4 (10-20); Bilirubin,Total 0.7 mg/dl (0.2-1); Blood Urea Nitrogen 4 mg/dl (7-18); Carbon Dioxide 27 mmol/L (21-32); Chloride 107 mmol/L (98-107); Creatinine Clr Calc Pharmacy 103.3 ml/min; Est GFR (African American) 132.4; Est GFR (Non-African American) 114.2; Globulin 3.2 gm/dl (2.5-4.0); Glucose 82 mg/dl (70-99); Lipase 148 U/L (73-393); Sodium 140 mmol/L (136-145); Total Protein 5.3 gm/dl (6.4-8.2)
[2020-03-29] MEDS: PROCHLORPERAZINE 5 MG in SYRINGE 4 ML IV PRN (07:48)
[2020-03-29] MEDS: LIDOCAINE 5% 1 PATCH TD SCH (08:07)
[2020-03-29] MEDS: MESALAMINE 1 EA PO SCH (08:13)
[2020-03-29] MEDS: NYSTATIN SUSP 500,000 U/5 ML UDC PO SCH (08:13)
[2020-03-29] MEDS: DICYCLOMINE HCL 10 MG CAP PO SCH ×4 (08:13→19:56)
[2020-03-29] MEDS: FLUOXETINE HCL 20 MG CAP PO SCH (08:14)
[2020-03-29] MEDS: predniSONE 10 MG TABLET PO SCH (08:14)
[2020-03-29] MEDS ORDERED: NON-FORMULARY PATIENT'S OWN MED SCH (09:45)
[2020-03-29] MEDS: OMEPRAZOLE 20 MG CAPCR PO SCH (10:06)
[2020-03-29] MEDS ORDERED: FLUCONAZOLE 100 MG TAB PO ONE (10:30)
[2020-03-29] MEDS ORDERED: EUCERIN CR 120 GM JAR EXT PRN (11:13)
--- NOTE | 2020-03-29 12:25 | Hospitalist Progress Note ---
Date of Service March 29, 2020 Assessment & Plan (1) Sepsis: CT abd 03/28 showing colitis and large appendix without stranding. Pancreas appears normal. Repeat CT with IV and po contrast same day showed increased colitis and distention. No stranding of the appendix to suggest appendicitis Febrile, tachycardic, hypotensive on 03/28 - has resolved Continue IVF NSS 20K @ 125 mls Continue Zosyn - bc ngtd after 24 hours, UC pending Reconsulted GI, appreciate assistance (2) Post-ERCP acute pancreatitis: Abdominal pain right upper quadrant to mid upper abdomen LFTs nearly resolved, lipase wnl Consulted GI (3) Oral thrush: Initially Right posterior oropharynx - given Nystatin but 03/29 with worsening covering entire tongue EGD was performed five days ago and no candidiasis was seen in the esophagus so unlikely this is contributing to her abdominal pain Discontinue Nystatin 10ml QID and start Diflucan BC ngtd as above (4) Ulcerative colitis: Down to 35mg prednisone daily taper after recent flare up. Patient request returning to 40 mg daily so will add 5 more for today and give 40 mg tomorrow. Would return to 35 mg at discharge to continue her taper. Repeat CT showing worsening colitis (5) Elevated LFTs: Continues to trend down following recent cholecystectomy and ERCP (6) Spondyloarthritis: (7) Hypothyroid: Continue Tirosint 150mcg PO daily, 300 mcg on Sundays (8) Hypokalemia: Replaced, added 20K to IVF (9) DVT prophylaxis: No chemical prophylaxis indicated given low risk. [facility] Admission and Anticipated Discharge Date Admission Date: March 25, 2020 Subjective Ms. Dunne's pain has improved today though she still has a sharp stabb ing pain as well as cramping, mostly on the right side. She is nauseas at times, no vomiting. Diarrhea has resolved. She reports that her thrush is worsening. She has eczema on the backs of her hands ROS Constitutional: no chills, aches, sweats or fever Respiratory: no sob,cough, sputum, or wheezing Cardiac: no chest pain, palpitations, edema, orthopnea or lightheadedness GI: see HPI : no dysuria or hesitancy Extremities: no joint pain or weakness Skin: see HPI All other systems reviewed and negative Physical Exam Physical Exam: General: no distress Eyes: normal inspection, PERLL EENT: thrush coating entire tongue Respiratory: chest non tender, clear to auscultation, normal breath sounds, no respiratory distress, no accessory muscle use Cardiac: regular rate and rhythm, no rub or gallop, no murmur, no edema, no jvd GI/: active bowel sounds, no abd pain or tenderness, soft, non distended Extremities: normal range of motion, normal strength, non tender Neuro/Psych: alert and oriented x 3, normal mood and affect Skin: normal color, dry, dry skin backs of hands Results & Data Results & Data ([facility]) Vital Signs (Past 12 Hours) Vital Signs Temp Pulse Pulse Resp BP Pulse Ox 03/29/20 12:03 36.6 C 83 16 96/65 L 95 03/29/20 08:00 37.0 C 98 H 18 106/70 99 03/29/20 04:00 36.9 C 80 18 109/65 96 PG Care Time/CCT Total # of Minutes Spent Total Time Spent with Patient: Total time spent is greater than 50% in coordination of care (as documented) at patient's floor/unit and/or counseling patient: Coding Level of Care Code 01806 Subseq Hosp Care Lvl 3 Diagnoses Sepsis A41.9 Post-ERCP acute pancreatitis K91.89; K85.90 Oral thrush B37.0 Ulcerative colitis K51.018 Ulcerative colitis location: ulcerative pancolitis Digestive disease complication type: other complication Elevated LFTs R79.89 Spondyloarthritis M47.819 Hypothyroid E03.9 Hypokalemia E87.6 DVT prophylaxis Z29.9 (1) Ulcerative colitis Ulcerative colitis location: ulcerative pancolitis Digestive disease complication type: other complication Qualified Code(s): K51.018 - Ulcerative (chronic) pancolitis with other complication
[2020-03-29] MEDS ORDERED: predniSONE 5 MG TAB PO ONE (13:00)
[2020-03-29] MEDS ORDERED: ENOXAPARIN INJ 40 MG/0.4 ML SYR SQ SCH (18:30)
[2020-03-30] MEDS: MoRPHine SULFATE 2 MG/ML CARP IV PRN ×2 (02:13→09:24)
[2020-03-30] MEDS: NSS + 20MEQ KCL 20 MEQ/1,000 ML BAG IV SCH ×3 (05:00→19:21)
[2020-03-30] MEDS: PROCHLORPERAZINE 5 MG in SYRINGE 4 ML IV PRN (05:17)
[2020-03-30] MEDS: MoRPHine SULFATE 4 MG/ML 1 ML CARP\\VIAL IV PRN (05:17)
[2020-03-30] MEDS: TIROSINT PO SCH (05:19)
[2020-03-30] MEDS: OMEPRAZOLE 20 MG CAPCR PO SCH (05:19)
[2020-03-30 06:05] LABS: Hematocrit (blood only) 29.4 % (37-47); Hemoglobin 9.6 g/dL (12.0-16.0); Mean Corpuscular Hemoglobin 30.6 pg (25-34); Mean Corpuscular Hgb Conc 32.7 g/dL (32-36); Mean Corpuscular Volume 93.6 fL (80-100); Mean Platelet Volume 10.3 fL (7.4-10.4); Platelet Count 322 K/uL (130-400); RDW Coefficient of Variation 13.1 % (11.5-14.5); RDW Standard Deviation 44.6 fL (36.4-46.3); Red Blood Count 3.14 M/uL (4.2-5.4); White Blood Count 10.72 K/uL (4.8-10.8)
[2020-03-30 06:42] LABS: Albumin Globulin Ratio 0.6 (0.9-2); BUN Creatinine Ratio 6.3 (10-20); Bilirubin,Total 0.5 mg/dl (0.2-1); Calcium 7.8 mg/dl (8.5-10.1); Creatinine Clr Calc Pharmacy 117.8 ml/min; Est GFR (African American) 138.2; Est GFR (Non-African American) 119.3; Globulin 3.3 gm/dl (2.5-4.0); Magnesium 1.6 mg/dl (1.8-2.4); Total Protein 5.3 gm/dl (6.4-8.2)
[2020-03-30] MEDS: FLUCONAZOLE 100 MG TAB PO SCH (08:53)
[2020-03-30] MEDS: DICYCLOMINE HCL 10 MG CAP PO SCH ×5 (08:53→21:13)
[2020-03-30] MEDS: FLUOXETINE HCL 20 MG CAP PO SCH (08:53)
[2020-03-30] MEDS: LIDOCAINE 5% 1 PATCH TD SCH (08:53)
[2020-03-30] MEDS: MESALAMINE 1 EA PO SCH (08:55)
[2020-03-30] MEDS ORDERED: predniSONE 20 MG TAB PO SCH (09:00)
[2020-03-30] MEDS: MAGNESIUM SULFATE / D5W 1 GM/100 ML BAG IV SCH ×2 (09:16→11:06)
[2020-03-30] MEDS: PIPERACILLIN/TAZOBACTAM 3.375 GM in DEXTROSE 5% 100 ML IV SCH ×2 (09:18→15:47)
[2020-03-30] MEDS ORDERED: PROMETHAZINE HCL 12.5 MG in SODIUM CHLORIDE 0.9% 50 ML IV PRN (10:12)
--- NOTE | 2020-03-30 10:50 | XRay Report ---
KUB HISTORY: Generalized abdominal pain. Colitis. COMPARISON: KUB 03/27/2020. FINDINGS: Bowel wall thickening within the ascending colon and proximal transverse colon consistent w ith the patient's known colitis. Interval progression of the mildly distended gas-filled transverse c olon measures up to 8 cm in diameter. Borderline dilated gas-filled loops of small bowel are also not ed. Therefore, this favors an ileus. No renal calculi. No ureteral calculi. No pneumoperitoneum or pn eumatosis. Prior cholecystectomy. IMPRESSION: 1. Bowel wall thickening involving the ascending colon and transverse colon consistent with the patie nt's known colitis. 2. Mildly dilated gas-filled loops of small and large bowel which have slightly progressed. This favo rs an ileus. The colon measures up to 8 cm in diameter. ACT 112: Negative or not required by law. Electronically signed by: Ollie Castillo M.D. 03/30/2020 10:49 AM
--- NOTE | 2020-03-30 10:58 | Hospitalist Progress Note ---
Date of Service March 30, 2020 Assessment & Plan (1) Sepsis: * CT abd 03/28 showing colitis and large appendix without stranding. Pancreas appears normal. Repeat CT with IV and po contrast same day showed increased colitis and distention. No stranding of the appendix to suggest appendicitis * Febrile, tachycardic, hypotensive on 03/28 --> now hypotensive at 99/61. Increased IVF to 175cc/hr * Blood cultures NGTD * KUB with progressed mildly dilated gas filled loops of small and large bowel, colon measures up to 8cm in diameter -- favors ileus. Encouraged ambulation * Discontinued 4mg IV morphine and will only keep 2mg on OCT, although discussed with patient as narcotics worsening pain/constipation and per GI not tx for UC * --> will trial phenergan to see if relief with nausea and pain from colitis * GI re-consulted -- appreciate assistance * UA with 1+ blood, 5-10 RBC -- Urine culture without growth * Continue Zosyn for now * cdiff negative (given recent abx usage and reported 50+ BM) * If worsening pain, repeat KUB to r/o toxic megacolon (2) Ulcerative colitis: * CT with worsening colitis * Previously down to 35mg prednisone daily taper after recent flare up but increased back to 40mg daily -- to be on 35mg daily at discharge * To be starting Stelara outpatient * GI consulted as above -- ?? need for IV steroids given now with bloody stool * Conitnue mesalamine * fecal occult pending for completeness * If patient to remain with poor PO intake, would reach out to nutrition about possibly starting parenteral nutrition (3) Post-ERCP acute pancreatitis: * Abdominal pain right upper quadrant to mid upper abdomen * LFTs wnl. Lipase added at patient request due to increased pain with eating/post BM pain --> 125 * GI as above (4) Oral thrush: * Initially Right posterior oropharynx - given Nystatin but 03/29 with worsening covering entire tongue * EGD was performed five days ago and no candidiasis was seen in the esophagus so unlikely this is contributing to her abdominal pain * Discontinue Nystatin 10ml QID and started Diflucan on 03/30 * BC ngtd as above (5) Elevated LFTs: * Resolved (6) Spondyloarthritis: (7) Hypothyroid: * Continue Tirosint 150mcg PO daily, 300 mcg on Sundays (8) Hypokalemia: * Replaced, added 20K to IVF * L 4.0 on AM labs (9) Hypomagnesemia: * Mag low at 1.6 -- likely secondary to increased diarrhea * cdiff pending * Ordered 2gm IV * Repeat in AM (10) DVT prophylaxis: * Lovenox added 03/29 as pt on Nuvaring * SCDs Admission and Anticipated Discharge Date Admission Date: March 25, 2020 Supervising Physician Co-Signing Physician Notes Pt d/w Ms. Yen, PAC Agree with plan as outlined above sepsis, colitis GI following Subjective Patient evaluated this morning. No further fever and states chills have improved. Approximately 50BM following tap water enema on Monday with increased pain following bowel movements. Pain located to right of belly button in region of ascending colon. Frequency of BMs has decreased but now patient does not some darker clots in her stool and would like tested for blood as she was not having bloody diarrhea prior to this. Would also like to continue higher dose steroid, 40mg, until flare is resolved but does have questions regarding efficacy vs IV steroids. Agreeable to trial Phenergan to see if she is able to have better pain/nausea control. She states she did feel as if she was going to vomit last evening but did not. She has had minimal oral intake on clear liquids but did have more liquids last evening compared to earlier in the day. She does note urinary symptoms have lessened in regard to being able to start stream. Review of Systems Review of Systems: All systems reviewed & are unremarkable except as noted in HPI & below Physical Exam Constitutional: WD/WN, vitals as above no acute distress Eyes: + anicteric sclerae; normal pupil size ENMT: external ear and nose normal, oropharynx normal Neck: trachea midline, no thyromegaly Respiratory: normal respiratory effort, lungs clear to auscultation Cardiovascular: RRR, no murmur, no edema Gastrointestinal (Abdomen): Inspection/Auscultation: abdomen normal to inspection and normal bowel sounds Percussion/Palpation: + abdomen tender (RLQ and periumbilical) and abdomen soft; no guarding and abdomen not rigid Musculoskeletal: no cyanosis or clubbing, extremities motor strength 5/5 Skin: no rashes, warm and dry Neurologic: moves all extremities and awake; not confused Psychiatric: A+Ox3, euthymic affect Lymphatic: no cervical or axillary lymphadenopathy Results & Data Results & Data ([facility]) Vital Signs (Past 12 Hours) Vital Signs Temp Pulse Resp BP Pulse Ox 03/30/20 07:48 36.8 C 76 18 149/72 H 95 03/30/20 02:40 36.6 C 72 16 114/79 100 03/29/20 23:39 36.7 C 75 18 95/64 L 99 Laboratory Results 03/30/20 03/30/20 03/30/20 Range/Units 09:45 05:53 05:53 WBC (4.8-10.8) K/uL RBC (4.2-5.4) M/uL Hgb (12.0-16.0) g/dL Hct (37-47) % MCV (80-100) fL MCH (25-34) pg MCHC (32-36) g/dL RDW Std Deviation (36.4-46.3) fL RDW Coeff of Chaim (11.5-14.5) % Plt Count (130-400) K/uL MPV (7.4-10.4) fL Sodium 138 (136-145) mmol/L Potassium 4.0 D (3.5-5.1) mmol/L Chloride 108 H (98-107) mmol/L Carbon Dioxide 26 (21-32) mmol/L Anion Gap 4.0 (3-11) BUN 4 L (7-18) mg/dl Creatinine 0.57 L (0.6-1.2) mg/dl Est Cr Clr Drug Dosing 117.8 ml/min Est GFR ( Amer) 138.2 Est GFR (Non-Af Amer) 119.3 BUN/Creatinine Ratio 6.3 L (10-20) Glucose 75 (70-99) mg/dl Calcium 7.8 L (8.5-10.1) mg/dl Magnesium 1.6 L (1.8-2.4) mg/dl Total Bilirubin 0.5 (0.2-1) mg/dl AST 21 (15-37) U/L ALT 71 (12-78) U/L Alkaline Phosphatase 108 (45-117) U/L Total Protein 5.3 L (6.4-8.2) gm/dl Albumin 2.0 L (3.4-5.0) gm/dl Globulin 3.3 (2.5-4.0) gm/dl Albumin/Globulin Ratio 0.6 L (0.9-2) Lipase 125 (73-393) U/L Specimen Hemolysis Stl C. diff Tox B Gene Negative Cdiff Gene (Neg) 03/30/20 Range/Units 05:53 WBC 10.72 (4.8-10.8) K/uL RBC 3.14 L (4.2-5.4) M/uL Hgb 9.6 L (12.0-16.0) g/dL Hct 29.4 L (37-47) % MCV 93.6 (80-100) fL MCH 30.6 (25-34) pg MCHC 32.7 (32-36) g/dL RDW Std Deviation 44.6 (36.4-46.3) fL RDW Coeff of Chaim 13.1 (11.5-14.5) % Plt Count 322 (130-400) K/uL MPV 10.3 (7.4-10.4) fL Sodium (136-145) mmol/L Potassium (3.5-5.1) mmol/L Chloride (98-107) mmol/L Carbon Dioxide (21-32) mmol/L Anion Gap (3-11) BUN (7-18) mg/dl Creatinine (0.6-1.2) mg/dl Est Cr Clr Drug Dosing ml/min Est GFR ( Amer) Est GFR (Non-Af Amer) BUN/Creatinine Ratio (10-20) Glucose (70-99) mg/dl Calcium (8.5-10.1) mg/dl Magnesium (1.8-2.4) mg/dl Total Bilirubin (0.2-1) mg/dl AST (15-37) U/L ALT (12-78) U/L Alkaline Phosphatase (45-117) U/L Total Protein (6.4-8.2) gm/dl Albumin (3.4-5.0) gm/dl Globulin (2.5-4.0) gm/dl Albumin/Globulin Ratio (0.9-2) Lipase (73-393) U/L Specimen Hemolysis Stl C. diff Tox B Gene (Neg) Diagnostic Findings KUB IMPRESSION: 1. Bowel wall thickening involving the ascending colon and transverse colon consistent with the patient's known colitis. 2. Mildly dilated gas-filled loops of small and large bowel which have slightly progressed. This favors an ileus. The colon measures up to 8 cm in diameter. PG Care Time/CCT Total # of Minutes Spent Total Time Spent with Patient: Total time spent is greater than 50% in coordination of care (as documented) at patient's floor/unit and/or counseling patient: Coding Level of Care Code 06295 Subseq Hosp Care Lvl 3 Diagnoses Sepsis A41.9 Ulcerative colitis K51.018 Digestive disease complication type: other complication Ulcerative colitis location: ulcerative pancolitis Post-ERCP acute pancreatitis K91.89; K85.90 Oral thrush B37.0 Elevated LFTs R79.89 Spondyloarthritis M47.819 Hypothyroid E03.9 Hypokalemia E87.6 Hypomagnesemia E83.42 DVT prophylaxis Z29.9 (1) Ulcerative colitis Digestive disease complication type: other complication Ulcerative colitis location: ulcerative pancolitis Qualified Code(s): K51.018 - Ulcerative (chronic) pancolitis with other complication
[2020-03-30] MEDS: PROMETHAZINE HCL 6.25 MG in SODIUM CHLORIDE 0.9% 50 ML IV PRN ×2 (15:46→19:49)
--- NOTE | 2020-03-30 17:14 | Gastroenterology Progress Note ---
Date of Service March 30, 2020 Assessment & Plan (1) Ulcerative colitis: (2) Abdominal pain: (3) Ileus: Ileus most likely secondary to narcotic analgesics Recommend stopping all Narcotics. Patient states Phenergan has helped with Nausea, I would recommend continuing this, however, if given with narcotic analgesics, it can cause a synergistic effect. Switch PO prednisone to Solumedrol 40mg IV BID TPN is not a good idea in this patient due to source of infection with central line/PICC line, immunosuppressive and is hepatotoxic. If patient's symptoms worsen, transfer to Tertiary center (Preferably [facility] where she receives routine care for UC). Admission and Anticipated Discharge Date Admission Date: March 25, 2020 Subjective Patient with continue RLQ abdominal pain. She states pain is slightly better today following Phenergan for nausea. Still describes pain as 3-4/10 in intensity, non-radiating. She is asking for an increased diet. She states she would like to try some toast. She denies any fevers, chills, nausea or vomiting. She did have multiple BM's today with blood. Review of Systems Review of Systems: All systems reviewed & are unremarkable except as noted in HPI & below Physical Exam Constitutional: WD/WN, vitals as above Respiratory: normal respiratory effort, lungs clear to auscultation Cardiovascular: RRR, no murmur, no edema Gastrointestinal (Abdomen): Inspection/Auscultation: normal bowel sounds; abdomen not distended Percussion/Palpation: + abdomen tender and abdomen soft; no guarding and abdomen not rigid Results & Data Results & Data ([facility]) Vital Signs (Past 12 Hours) Vital Signs Temp Pulse Pulse Resp BP Pulse Ox 03/30/20 15:41 37.2 C 73 16 95/59 L 98 03/30/20 14:58 37.0 C 67 17 106/73 97 03/30/20 11:45 36.9 C 75 16 99/61 L 99 03/30/20 10:11 70 03/30/20 07:48 36.8 C 76 18 149/72 H 95 PG Care Time/CCT Total # of Minutes Spent Total Time Spent with Patient: Total time spent is greater than 50% in coordination of care (as documented) at patient's floor/unit and/or counseling patient: Coding Level of Care Code 83990 Subseq Hosp Care Lvl 3 Diagnoses Ulcerative colitis K51.90 Abdominal pain R10.33 Abdominal location: periumbilical Ileus K56.7 (1) Abdominal pain Abdominal location: periumbilical Qualified Code(s): R10.33 - Periumbilical pain
[2020-03-30] MEDS: CALCIUM CARBONATE 1250MG TAB PO SCH (21:14)
[2020-03-30] MEDS: methylPREDNISolone 40 MG in SYRINGE 0 ML IV SCH (21:14)
[2020-03-30] MEDS ORDERED: TRAZODONE HCL 50 MG TAB PO ONE (22:30)
[2020-03-31] MEDS: PIPERACILLIN/TAZOBACTAM 3.375 GM in DEXTROSE 5% 100 ML IV SCH ×2 (00:08→08:20)
[2020-03-31] MEDS: PROMETHAZINE HCL 12.5 MG in SODIUM CHLORIDE 0.9% 50 ML IV PRN ×3 (00:32→08:39)
[2020-03-31] MEDS: NSS + 20MEQ KCL 20 MEQ/1,000 ML BAG IV SCH ×3 (01:40→17:27)
[2020-03-31] MEDS: OMEPRAZOLE 20 MG CAPCR PO SCH (06:25)
[2020-03-31] MEDS: TIROSINT PO SCH (06:27)
[2020-03-31] MEDS: DICYCLOMINE HCL 10 MG CAP PO SCH ×3 (08:13→17:26)
[2020-03-31] MEDS: FLUOXETINE HCL 20 MG CAP PO SCH (08:13)
[2020-03-31] MEDS: MESALAMINE 1 EA PO SCH (08:14)
[2020-03-31] MEDS: FLUCONAZOLE 100 MG TAB PO SCH (08:14)
[2020-03-31] MEDS: LIDOCAINE 5% 1 PATCH TD SCH (08:15)
[2020-03-31 08:30] LABS: Basophils # (auto) 0.01 K/uL (0-0.2); Basophils % (auto) 0.1 %; Hematocrit (blood only) 34.1 % (37-47); Hemoglobin 11.3 g/dL (12.0-16.0); Immature Granulocytes # (auto) 0.11 K/uL (0.00-0.02); Immature Granulocytes % (auto) 0.9 %; Lymphocytes # (auto) 1.14 K/uL (1.2-3.4); Lymphocytes % (auto) 9.4 %; Mean Corpuscular Hemoglobin 30.4 pg (25-34); Mean Corpuscular Hgb Conc 33.1 g/dL (32-36); Mean Corpuscular Volume 91.7 fL (80-100); Mean Platelet Volume 8.8 fL (7.4-10.4); Monocytes # (auto) 0.66 K/uL (0.11-0.59); Monocytes % (auto) 5.4 %; Neutrophils # (auto) 10.21 K/uL (1.4-6.5); Neutrophils % (auto) 84.2 %; Platelet Count 437 K/uL (130-400); RDW Standard Deviation 43.7 fL (36.4-46.3); Red Blood Count 3.72 M/uL (4.2-5.4); White Blood Count 12.13 K/uL (4.8-10.8)
[2020-03-31 08:47] LABS: Albumin Level 2.6 gm/dl (3.4-5.0); BUN Creatinine Ratio 5.1 (10-20); Bilirubin Direct 0.2 mg/dl (0-0.2); Calcium 8.3 mg/dl (8.5-10.1); Creatinine Clr Calc Pharmacy 96.3 ml/min; Est GFR (Non-African American) 100.9; Magnesium 2.2 mg/dl (1.8-2.4); Potassium 3.9 mmol/L (3.5-5.1)
[2020-03-31 08:56] LABS: Bilirubin,Total 0.4 mg/dl (0.2-1); Phosphorus 3.1 mg/dl (2.5-4.9); Total Protein 6.7 gm/dl (6.4-8.2)
--- NOTE | 2020-03-31 09:26 | Gastroenterology Progress Note ---
Date of Service March 31, 2020 Assessment & Plan (1) Ileus: (2) Ulcerative colitis: (3) Post-ERCP acute pancreatitis: Ileus most likely secondary to narcotic analgesics as patient appears to have been getting 4 mg IV at a time. -Stop ALL narcotics as patient has an ileus. Additionally, there is no established role for narcotics in the treatment of her IBD. -Can continue Phenergan if narcotics are stopped. -Continue Solumedrol 40 mg IV BID. As previously recommended, continue a calcium & vitamin D supplement and d/c on an 8 week taper of Prednisone decreasing by 5 mg weekly. -Do not recommend TPN at this time. 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 -Pancreatitis resolved. Admission and Anticipated Discharge Date Admission Date: March 25, 2020 Supervising Physician Co-Signing Physician Notes Agree with SHERRELL Cooper Abd: Soft, NT, ND Abdominal exam does not correlate with KUB from today or symptoms reported. However, due to worsening findings on imaging, I would recommend transfer to Tertiary center, as she may need surgical intervention, inpatient biologic therapy, or salvage therapy with cyclosporine. Again, I would avoid the use of narcotic analgesics in this patient, as it is a relative contraindication in a patient with an ileus. Consideration could be given to place an NG tube prior to transfer due to vomiting reported this AM. I do not see any need for IV antibiotics at this time, as there is no identified infection. Continue IV Steroids at present (this could cause slight elevation in WBC count). Continue supportive care Subjective Patient is a 34 yo female with UC recently admitted for a flare of her disease. She was discharged after having an ERCP performed by a different GI group. She returned with pancreatitis. She was treated with IV narcotics per the primary team. Pancreatitis resolved. Patient developed an ileus. She was seen by Dr. Mills on 03/31/20 for this. It was recommended her narcotics be stopped. She reports worsening pain and bloody bowel movements since this change. She is interested in transfer to [facility], where she receives her routine GI care. Review of Systems Constitutional: + fatigue Respiratory: no cough and no dyspnea Cardiovascular: no chest pain Gastrointestinal: + abdominal pain and + blood in stools Physical Exam Constitutional: well developed and well nourished Eyes: PERRL, conjunctivae normal, anicteric sclerae Neck: normal visual inspection Respiratory: normal respiratory effort Cardiovascular: Extremities: no edema Gastrointestinal (Abdomen): Inspection/Auscultation: abdomen normal to inspection and normal bowel sounds; abdomen not distended Percussion/Palpation: + guarding Skin: no rashes Psychiatric: A+Ox3, euthymic affect Results & Data Results & Data ([facility]) Vital Signs (Past 12 Hours) Vital Signs Temp Pulse Pulse Resp BP Pulse Ox 03/31/20 07:03 36.6 C 73 16 112/75 97 03/31/20 04:00 36.7 C 65 16 110/75 97 03/31/20 00:00 60 PG Care Time/CCT Total # of Minutes Spent Total Time Spent with Patient: Total time spent is greater than 50% in coordination of care (as documented) at patient's floor/unit and/or counseling patient: Coding Level of Care Code 64658 Subseq Hosp Care Lvl 3 Diagnoses Ileus K56.7 Ulcerative colitis K51.90 Post-ERCP acute pancreatitis K91.89; K85.90
[2020-03-31] MEDS ORDERED: MoRPHine SULFATE 2 MG/ML CARP IV STA (09:39)
[2020-03-31] MEDS ORDERED: PROCHLORPERAZINE 5 MG in SYRINGE 4 ML IV PRN (09:40)
--- NOTE | 2020-03-31 09:52 | Hospitalist Progress Note ---
Date of Service March 31, 2020 Assessment & Plan Admission and Anticipated Discharge Date Admission Date: March 25, 2020 Results & Data Results & Data ([facility]) Vital Signs (Past 12 Hours) Vital Signs Temp Pulse Pulse Resp BP Pulse Ox 03/31/20 07:03 36.6 C 73 16 112/75 97 03/31/20 04:00 36.7 C 65 16 110/75 97 03/31/20 00:00 60 PG Care Time/CCT Total # of Minutes Spent Total Time Spent with Patient: Total time spent is greater than 50% in coordination of care (as documented) at patient's floor/unit and/or counseling patient: Coding
[2020-03-31] MEDS ORDERED: SIMETHICONE 80 MG CHEW PO PRN (09:53)
[2020-03-31] MEDS: methylPREDNISolone 40 MG in SYRINGE 0 ML IV SCH (10:06)
--- NOTE | 2020-03-31 11:14 | XRay Report ---
KUB CLINICAL HISTORY: f/u UC COMPARISON STUDY: CT of the abdomen and pelvis March 28, 2020. KUB March 30, 2020. FINDINGS: Significant gaseous distention of the transverse colon is noted. This has increased since K UB of March 30, 2020. Possible transverse colon measures 9.3 cm in caliber. Gaseous distention of th e remainder of the colon as well as small bowel has decreased since prior exam. There are cholecystec cynthia clips. Sensitivity is diminished on this supine exam, but there is no evidence for free air. IMPRESSION: Interval increase in significant gaseous distention of the transverse colon. Although not definitive, toxic megacolon could have this appearance. Discussed with Fern Yen at time of dictat ion. ACT 112: Negative or not required by law. Electronically signed by: Efraín Montilla M.D. 03/31/2020 11:13 AM
--- NOTE | 2020-03-31 12:38 | Discharge Summary ---
Date of Service March 31, 2020 Admission HPI Per Admitting Provider Owen Rapp is a 34 year old female with ulcerative colitis, primary sclerosing cholangitis, autoimmune spondylarthritis, secondary Sjogren's syndrome who presents as a direct admission from [facility] due to concerns of post ERCP pancreatitis. She reports feeling her usual ulcerative colitis pain after the ERCP and was discharged just 2 days prior without epigastric pain. She started having severe 10/10 epigastric pain today which radiated around her right side, associated nausea and loss of appetite. She has been unable to drink or eat much today. She went to [facility] and had outpatient labs taken with elevated lipase in 800s and therefore was referred back for concern for post ERCP pancreatitis which she has had previously on prior ERCPs. No change in her bowel movements. No dysuria or change in urine frequency or smell. Urine appears concentrated. She was also noted to have oral thrush in the office, confirmed on SG staining. No fevers or chills. He recent admission from March 11 to was mainly secondary to ulcerative colitis flare treated with IV then PO steroids once infection was ruled out. Suspected this exacerbation was due to starting Cosentx. Hospitalization was complicated by stool culture growing blastocystitis taken prior to the admission at [facility] which was treated due to immunosuppressed state with IV metronidazole. It was also complicated by increasing LFTs with subsequent MRCP/ERCP with intrahepatic strictures consistent with diagnosis of PSC and biliary sludge removed. She was discharged 2 days previously with lower abdominal but no epigastric pain. Admission Exam Per Admitting Provider Constitutional: WD/WN, vitals as above no acute distress (does not appear to be in distress despite severity 10 pain) Eyes: + anicteric sclerae; normal pupil size ENMT: external ear and nose normal, oropharynx normal Neck: trachea midline, no thyromegaly Respiratory: normal respiratory effort, lungs clear to auscultation Cardiovascular: RRR, no murmur, no edema Gastrointestinal (Abdomen): Inspection/Auscultation: abdomen normal to inspection and normal bowel sounds Percussion/Palpation: + abdomen tender (epigastric > lower abdominal) and abdomen soft; no guarding and abdomen not rigid Musculoskeletal: no cyanosis or clubbing, extremities motor strength 5/5 Skin: no rashes, warm and dry Neurologic: moves all extremities and awake; not confused Psychiatric: A+Ox3, euthymic affect Principal Diagnosis Toxic Megacolon, s/p ERCP Pancreatitis Discharge Exam Constitutional + ill appearing; no acute distress and + uncomfortable Eyes + anicteric sclerae and PERRL ENMT Ears: no hearing impairment Neck normal visual inspection Respiratory normal respiratory effort, lungs clear to auscultation Cardiovascular Rate/Rhythm: regular rhythm and + tachycardic Heart Sounds: normal S1 and normal S2; no murmur Extremities: no edema Gastrointestinal (Abdomen) Inspection/Auscultation: + hyperactive bowel sounds Percussion/Palpation: + abdomen tender (diffusely) and abdomen soft Musculoskeletal no cyanosis or clubbing, extremities motor strength 5/5 Skin warm, dry Neurologic patellar DTR's 2+ bilat, sensation intact Psychiatric Orientation: alert and oriented x 3 Affect: + tearful affect Lymphatic no cervical or axillary lymphadenopathy Discharge Data Allergies Allergy/AdvReac Type Severity Reaction Status Date / Time acetaminophen Allergy Severe INTOLERANCE Verified 03/11/20 21:42 TO APAP hydromorphone Allergy Severe MUSCLE Verified 03/11/20 21:42 SHAKE ibuprofen Allergy Severe Intolerance Verified 03/11/20 21:42 to NSAIDS Sulfa (Sulfonamide Allergy Severe SKIN BURN Verified 03/11/20 21:42 Antibiotics) amoxicillin AdvReac Severe VOMIT Verified 03/19/20 09:34 doxycycline AdvReac Severe DIARRHEA,UT Verified 03/19/20 09:34 I,VOMIT edetic acid AdvReac Severe HEADACHES Verified 03/19/20 09:34 rifaximin AdvReac Severe HEADACHES Verified 03/19/20 09:34 risedronate sodium AdvReac Severe SHAKY/FEVER Verified 03/11/20 21:42 /VOMITING azithromycin AdvReac DIARRHEA, Verified 03/11/20 21:42 LIVER PAIN, HEADACHE leflunomide AdvReac VASCULITIS Verified 03/11/20 21:42 mesalamine [From Lialda] AdvReac MUSCLE Verified 03/11/20 21:42 SHAKES methotrexate AdvReac Vomiting Verified 03/11/20 21:42 mycophenolate mofetil AdvReac Watery Eye Verified 03/11/20 21:42 [From CellCept] ondansetron [From Zofran] AdvReac Headache Verified 03/11/20 21:42 FLOURORESIN AdvReac SKIN Uncoded 03/11/20 21:42 AROUND EYES CRACK HONEY COUGH SURUP AdvReac Joint Pain Uncoded 03/11/20 21:42 Consultations 03/26/20 00:33 Consult Gastroenterology Routine 03/30/20 12:53 Consult Gastroenterology Routine Ordered Studies 03/27/20 22:39 CT abd pelvis IV con only Urgent 03/28/20 10:34 CT abd pelvis oral and IV con Urgent 03/30 KUB 03/31 KUB Hospital Course (1) Sepsis: Patient initially admitted following prolonged hospitalization for her UC and was discharged for outpatient ERCP. She developed pancreatitis s/p ERCP and was hospitalized and initiated on IV fluids and pain control. As pancreatitis resolved, patient developed worsening abdominal pain, became tachycardic and developed fever and was hypotensive overnight 03/[address] A/P showed colitis which has progressed. Repeat CT with increased colitis and distension. Despite aggressive fluid resuscitation and fluids continuing to run at 175cc/hr patient still borderline hypotensive 03/30 and now 114/67 with initiation of solumedrol 40mg IV BID as recommended by GI team. Pain was controlled with morphine and patient developed ileus on subsequent KUB and repeat KUB now concerning for toxic megacolon with interval increase in significant gaseous distention of the transverse colon. Cdiff negative fecal occult positive for blood CRP elevated to 11 (previously 3.92 on 03/12), ESR 33 Given continued chills, and now with copious amounts of bloody diarrhea, elevated inflammatory markers and bilious vomiting with elevation in LFTs, calls made to her GI specialist at [facility], Dr. Gabriela Ruiz for possible transfer. Spoke with Dr. Gonzales from surgery willing to accept patient for possible surgical intervention, initiation of biologic therapy and/or salvage therapy with cyclosporine. (2) Ulcerative colitis: Worsening See above GI consulted Rec'd transfer for possible resection/biologic/salvage therapy at [facility] where she previously had been under care. Patient has had significant weight loss during hospitalizations, although given immunocompromised state, GI rec'd against TPN (3) Post-ERCP acute pancreatitis: Lipase has normalized, however ALT up to 94, Alk phos 163 up from normal values day prior (4) Oral thrush: Initially Right posterior oropharynx - given Nystatin but 03/29 with worsening covering entire tongue EGD was performed five days ago and no candidiasis was seen in the esophagus so unlikely this is contributing to her abdominal pain Discontinue Nystatin 10ml QID and started Diflucan on 03/30 BC ngtd as above (5) Elevated LFTs: See above (6) Spondyloarthritis: (7) Hypothyroid: Continued Tirosint 150mcg PO daily, 300 mcg on Sundays (8) Hypokalemia: Replaced, added 20K to IVF K 3.9 (9) Hypomagnesemia: Mag low at 1.6 and replaced --> repeat 2.2 (10) DVT prophylaxis: SCDs Lovenox but held given bloody diarrhea now Patient awaiting bed at [facility] -- received bed, Room #63. Discharge when transportation available Total Time Total Time Spent Total Time Spent (In Minutes): 180 Discharge Plan Discharge Items Patient Disposition: Transfer Acute Care Hospital Reason For Visit: PANCREATITIS Discharge Diagnosis: Toxic Megacolon Goals: You have been hospitalized for an acute medical problem. During your stay at [facility], we have made an effort to correct the problem that brought you to the hospital while keeping you as comfortable as possible. Medications were used to bring your condition under control and your discharge instructions will include directions for any medications you should take after leaving the hospital. Please make sure you see your Primary Care Provider as part of your follow up plan. Activity: Resume your previous activity Non-emergency contact: Primary Care Provider, Specialist and [employer] Studies Professor Call non-emergency contact if: you have any medication questions Follow-up/Referrals: Kevan Mcgregor MD [Physician] - (once discharged from [facility]) Brenda Paredes MD [Primary Care Provider] - Diet: Nothing by Mouth Addtl Attending Provider Instructions: You have been hospitalized for post-ERCP pancreatitis. Your pancreatitis has resolved, but it appears as if your ulcerative colitis has been progressively worsening and on KUB this morning, concerning for toxic megacolon given increased abdominal pain, nausea, vomiting and blood in your stool. Contact was made with your primary GI provider and I spoke with Dr. Gonzales (surgeon) at [facility] who have accepted you for a possible bowel resection vs biologic initiation vs salvage therapy to be determined based on evaluation once you arrive at their facility. Discharged to [facility] with IVF running. Please follow up after discharge with your specialists and local providers. It has been a pleasure being a part of the medical team providing for you while you have been in the hospital. Take care! Pending Studies at Discharge: No Stand-Alone Forms: My [facility] Skilled Items Patient informed of condition?: Yes DNR: No Discharge Level of Care: Other Communicable Disease: No Discharge Prognosis: Deteriorating Lines: Peripheral IV Urinary Catheter: No Medications and DC Order Prescriptions: New fluconazole 100 mg Tablet 100 mg PO QAM Qty: 5 RF: 0 Continued etonogestrel-ethinyl estradiol [NuvaRing] 0.12-0.015 mg/24 hr ring 1 ea Vaginal DIRECTED RF: 0 omeprazole 20 mg capsule,delayed release(DR/EC) 20 mg PO QAM RF: 0 Tirosint 150 mcg capsule 150 mcg PO QAM RF: 0 calcium carbonate [Calcium 500] 500 mg calcium (1,250 mg) Tablet 500 mg PO BID RF: 0 fluoxetine [Prozac] 20 mg capsule 20 mg PO QAM RF: 0 loratadine 10 mg tablet 10 mg PO QAM RF: 0 ergocalciferol (vitamin D2) [Vitamin D2] 1,250 mcg (50,000 unit) capsule 50,000 unit PO .[id number] RF: 0 dicyclomine 10 mg capsule 10 mg PO QID RF: 0 cholecalciferol (vitamin D3) [Vitamin D3] 25 mcg (1,000 unit) Capsule 3,000 unit PO DAILY RF: 0 mesalamine [Apriso] 0.375 gram capsule,extended release 24hr 0.375 g PO QAM RF: 0 prednisone 5 mg tablet 5 mg PO UD Qty: 28 RF: 0 prochlorperazine maleate [Compazine] 10 mg tablet 10 mg PO Q8H PRN (Reason: nausea and vomiting) Qty: 30 RF: 0 prochlorperazine [Compazine] 25 mg suppository 25 mg FL BID PRN (Reason: nausea and vomiting) Qty: 12 RF: 0 oxycodone 5 mg capsule 5 mg PO Q6H PRN (Reason: pain) Qty: 30 RF: 0 Discontinued prednisone 10 mg tablet 40 mg PO DAILY 51 Days Qty: 92 RF: 0 Discharge Orders: Discharge Order (Routine); Ordered 03/31/20 Ordered By: Fern Yen Admission Data Admit Date/Time: 03/25/20 19:14 Attending Provider: Reina Hernandez Admit Provider: Lorenzo Flores Primary Care Provider: Brenda Paredes Other Providers: Kevan Mcgregor ; Josse Mills Supervising Physician Co-Signing Physician Notes Pt seen and examined by me. States her abd pain is helped with morphine. Denies chest pain or SOB. She is tearful about the possibility of colon resection. 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
[2020-03-31] MEDS ORDERED: MoRPHine SULFATE 2 MG/ML CARP IV PRN (13:30)
[2020-03-31] MEDS: CALCIUM CARBONATE 1250MG TAB PO SCH (14:13)
--- NOTE | 2020-04-06 07:36 | Coding Query ---
CODING QUERY To promote full compliance with coding requirements relating to patient care, provider participation is requested in all cases of blood bank worker uncertainty. Please assist us with the question(s) below: Coding Question(s): Post-ERCP Acute Pancreatitis is documented. Please specify below, in your clinical opinion. ( x ) This is likely a postoperative complication of the ERCP ( ) This is Not a postoperative complication of the ERCP ( ) Other: Please Specify Physician's Response(s): Thank you Irina Bowen Principal Diagnosis: "that condition established after study, to be chiefly responsible for occasioning the admission of the patient to the hospital for care." Co-Existing Principal Diagnosis: "when two or more diagnoses equally meet the criteria for principal diagnosis as determined by the circumstances of admission, diagnostic work up, and/or therapy provided, and the Alphabetic Index, Tabular List, or another coding guideline does not provide sequencing direction, any one of the diagnoses may be sequenced first." "When the physician has documented what appears to be a current diagnosis in the body of the record, but has not included the diagnosis in the final diagnostic statement, the physician should be asked whether the diagnosis should be added." (Source Coding Clinic 2 QTR90. p3-4) ALEAH
== END 2020-03-31 19:44 | disposition short-term general hospital (02) | DRG 393 ==
LOC: 3W 18:59 → SUATTDRO 18:59 → 3W 19:16 → 2S 03-28 11:26 → 2E 03-30 16:36

== ENCOUNTER 2020-09-08 07:47 | Inpatient (IN) ==
[2020-09-08] MEDS ORDERED: SODIUM CHLORIDE 0.9% 1000ML 1,000 ML IV ONE ×2 (08:14→12:44)
[2020-09-08] MEDS ORDERED: MoRPHine SULFATE 4 MG/ML 1 ML CARP\\VIAL IV STA ×3 (08:16→16:00)
--- NOTE | 2020-09-08 08:19 | Emergency Department Note ---
Impression & Plan Small bowel obstruction, Internal hernia, Crohn disease ED Provider Note CHIEF COMPLAINT: Abdominal pain HISTORY OF PRESENTING ILLNESS: This is a 34-year-old female with past medical history significant for Crohn's with an ileostomy who presents to the emergency department via EMS with concerns for severe abdominal pain. Patient states that she has had some level of abdominal pain constantly since her last surgery on 07/05/2020, but her pain has become more severe over the past 6 days. Patient has a complicated surgical history and is followed by colorectal surgery at [facility]. She does note that her last surgery at the end of June was due to necrotic bowel. She does note that she was having some watery output from her ostomy, which she feels is due to flare of her Crohn's, but she also notes that she had 2 large bowel movements from her rectum which is unusual after receiving the ileostomy. No blood noted in the stool. She states that she was supposed to have a sigmoidoscopy at [facility], but when she was there her rapid test came back positive for COVID-19 and they said they could not do the procedure for at least 2 weeks. She has since had 2 COVID-19 test which were both negative and she believes this was a false positive, however she has not been able to get a new appointment with her doctors. Her abdominal pain is constant, in the mid abdominal area around the umbilical region and lower, she describes it as sharp and aching, and rates the pain 10/10. She has been taking her prescribed oxycodone which normally works for her pain and she states this has not alleviated the pain at all. She states this feels similar to the pain she had before her surgery in June. She denies any fevers or chills. She has had nausea but no vomiting. She denies any chest pain, chest tightness, shortness of breath, headaches, or body aches. She denies any urinary symptoms. REVIEW OF SYSTEMS: A complete 10 point review of systems was reviewed with the patient with pertinent positives and negatives as per history of present illness. All else were negative. PAST MEDICAL HISTORY: Crohn's disease, numerous abdominal surgeries including colectomy and ileostomy SOCIAL HISTORY: Lives at home, she denies tobacco use ALLERGIES: Reviewed in chart and with the patient PHYSICAL EXAM: CONSTITUTIONAL: Pleasant and cooperative. Nontoxic-appearing and in no acute distress. Dehydrated, otherwise well appearing and well nourished. HEENT: Normocephalic, atraumatic. Pharynx normal. Tacky mucous membranes NECK: Supple, full active range of motion without discomfort. RESPIRATORY: Clear to auscultation bilaterally with no wheezing, crackles, rhonchi or stridor. Equal expansion bilaterally. CARDIOVASCULAR: Regular rate and rhythm with no murmurs, rubs or gallops. Normal peripheral perfusion. No edema. GASTROINTESTINAL: Diffusely tender in the mid and lower abdomen, no rebound tenderness or guarding. Right lower quadrant ostomy site appears intact and is nontender with thick brown stool noted in the bag. A well-healed midline surgical incision scar is noted. Abdomen is soft and nondistended. No palpable masses or HSM. Bowel sounds present in all quadrants. No CVA tenderness bilaterally. MUSCULOSKELETAL: Full range of motion of all joints without discomfort. INTEGUMENTARY: No rash or other significant dermatologic conditions noted. NEUROLOGIC: Alert and oriented X 4 with normal affect. Normal strength and sensation in all 4 extremities. Normal speech. Normal gait observed. ED COURSE AND MEDICAL DECISION MAKING: CC: Patient presenting with complaint of abdominal pain DIFFERENTIAL DIAGNOSIS: Includes, but not limited to small bowel obstruction, intra-abdominal infection, perforation, ischemic bowel, Crohn's flare, intu ssusception, hernia, adhesions, chronic pain, among others. INTERPRETATION OF LABS: Leukocytosis (consistent with baseline), mild anemia (baseline), mildly elevated platelets, no significant electrolyte abnormalities, normal renal function, elevated alk phos, liver enzymes and lipase otherwise normal. Serum negative. Lactate normal. Urinalysis shows some blood and epithelial cells but is negative for infection. SARS-CoV-2 testing negative. IMAGING: ABDOMEN AND PELVIS CT WITH IV CONTRAST CT DOSE: 290.60 mGy.cm HISTORY: Acute mid abdominal pain in a patient with history of Crohn's disease and ileostomy. Prior subtotal colectomy with right lower quadrant ileostomy. mid abd pain, hx crohns, ileostomy TECHNIQUE: Multiaxial CT images of the abdomen and pelvis were performed following the IV administration of 94 cc of Optiray 320, A dose lowering technique was utilized adhering to the principles of ALARA. COMPARISON STUDY: CT abdomen and pelvis 08/21/2020 FINDINGS: The imaged inferior cardiac chambers are unremarkable. Clear lung bases. No pneumatosis or pneumoperitoneum. The spleen, pancreas and adrenal glands are unremarkable. Cholecystectomy. Unremarkable liver. Patency of the hepatic and portal veins. Unremarkable kidneys, uterus and urinary bladder. Aorta and IVC are unremarkable. No adenopathy. Postoperative changes of subtotal colectomy with right lower quadrant ileostomy. There is swirling of the mid to lower abdominal mesentery with numerous narrowed small bowel loops. There is a dilated loop of small bowel measuring up to 3.9 cm within the left paracentral mid abdomen on image 214 series 3 with interrupted luminal narrowing in caliber change on image 236 series 3. There is mild wall thickening noted involving several loops of small bowel within the pelvis. The previously questioned enterocutaneous fistula is not definitively seen on today's study. No abscess. Mild mesenteric edema with trace free fluid. Unremarkable soft tissues. Scattered probable bone islands noted. Bones appear intact. IMPRESSION: 1. Postoperative changes of subtotal colectomy with right lower quadrant ileostomy. 2. There is swirling of the mid mesentery with marked luminal narrowing and upstream dilation involving a loop of small bowel within the left midabdomen suspicious for developing obstruction with internal hernia. 3. No pneumoperitoneum or abscess identified. 4. Mild wall thickening involving a few loops of small bowel within the pelvis may be related to patient's reported inflammatory bowel disease. MEDICATION RECONCILIATION: I attest that I have personally reviewed the patient's current medication list. INITIAL VITAL SIGNS REVIEW: I reviewed the patient's initial vital signs and interpret them as follows: T: Afebrile; BP: Normotensive; HR: Mildly tachycardic; RR: Within normal limits; Pulse Ox: Within normal limits on room air. MDM SUMMARY: Patient was evaluated at bedside, history and physical exam performed. Patient is alert and oriented, in no acute distress, but appears uncomfortable from pain, resting in the stretcher. She is afebrile and nontoxic-appearing, does appear clinically dehydrated. Diffuse tenderness of the mid and lower abdomen on exam, most tender to the left of the umbilicus. No findings of acute abdomen at this time. Ileostomy appears to be intact with normal stool output. Reviewed the patient's chart noting a recent visit to this emergency department on 08/21/2020, at which time she had a CT that showed a fluid collection with possible fistula at that time. The patient's surgical incision appears to be only healed and she states there has not been any further discharge for over a week. Orders were placed for labs, lactate, serum , urinalysis, IV fluid bolus for hydration, IV morphine for pain, CT abdomen/pelvis with IV contrast to evaluate for abdominal pain. Patient discussed with Dr. Matisa, who agrees with my assessment, plan, and disposition. Labs and imaging reviewed as above, labs notable for leukocytosis and mild anemia, these appear to be her baseline labs. No acute abnormalities found. Lactate normal. She is not . COVID-[address] imaging reviewed as above, concerning for developing obstruction with internal hernia of the small bowel in the left mid abdomen region. No identified fistula, abscess, or pneumoperitoneum. I spoke on the phone with Dr. Gonzales, colorectal surgery at [facility], he did agree to accept the patient for transfer, however noted that they do not have any beds available currently and they're not sure when they will. I discussed this with the patient, she is not comfortable being transferred to any other facility and wants to go to [facility]. I discussed this with my attending, Dr. Matias, he felt that we should have the patient evaluated by our surgeons here to determine if she is reasonable to wait for several hours/days until she is able to be transferred to [facility]. I spoke on the phone with Malachi Shah PA-C with general surgery, who agrees to discuss with Dr. Thompson. Dr. Thompson evaluated the patient, he does not feel that she warrants any emergency surgical procedure at this time and feels that she is stable to await transfer from our facility to [facility]. He recommended keeping her n.p.o. with IV fluid maintenance and IV pain medication as needed. He is available if needed for any further assistance with the patient. There have been significant delays in obtaining a bed assignment from [facility], as they do not currently have beds available, unclear when the patient will be able to be arranged for transport. Since she is most likely spending the night, we did reach out to the hospitalist team, who agreed to admit the patient pending transfer. Transfer paperwork and consents have already been signed and are on the patient's chart. The patient was updated and has been stable and comfortable. She was stable at time of admission. The chart was completed utilizing [employer] voice recognition software. Grammatical errors, random word insertions, pronoun errors, and incomplete sentences are an occasional consequence of this system due to software limitations, ambient noise, and hardware issues. Any formal questions or concerns about the content, text, or information contained within the body of this dictation should be directly addressed to the nurse practitioner for clarification. Past Med/Surg History Medical History Allergic rhinitis Autoimmune disorder Crohn disease Ileostomy, has currently Primary sclerosing cholangitis Secondary Sjogren's syndrome Spondyloarthritis Thyroid cancer Ulcerative colitis Surgical History H/O colectomy Hx of colonoscopy Family History Other Family history non-contributory Social History Smoking Status: Never smoker Second Hand Exposure: No; Hx Alcohol Use: Yes Alcohol type: wine and hard liquor Alcohol Intake Frequency: Monthly or Less Hx Substance Use: No Preferred Language: Polish Communication Ability: Effective Excelsior Picker Required: No Beliefs That Will Affect Care: None Current Living Situation: Alone current occupational status: employed 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 Feels Safe at Home: Yes Assistive Devices: None Allergies Allergies Allergy/AdvReac Type Severity Reaction Status Date / Time hydromorphone Allergy Severe MUSCLE Verified 09/08/20 08:55 SHAKE ibuprofen Allergy Severe Intolerance Verified 09/08/20 08:55 to NSAIDS Sulfa (Sulfonamide Allergy Severe SKIN BURN Verified 09/08/20 08:55 Antibiotics) doxycycline AdvReac Severe DIARRHEA,UT Verified 09/08/20 08:55 I,VOMIT edetic acid AdvReac Severe HEADACHES Verified 09/08/20 08:55 rifaximin AdvReac Severe HEADACHES Verified 09/08/20 08:55 risedronate sodium AdvReac Severe SHAKY/FEVER Verified 09/08/20 08:55 /VOMITING azithromycin AdvReac DIARRHEA, Verified 09/08/20 08:55 LIVER PAIN, HEADACHE leflunomide AdvReac VASCULITIS Verified 09/08/20 08:55 methotrexate AdvReac Vomiting Verified 09/08/20 08:55 mycophenolate mofetil AdvReac Watery Eye Verified 09/08/20 08:55 [From CellCept] ondansetron [From Zofran] AdvReac Headache Verified 09/08/20 08:55 FLOURORESIN AdvReac SKIN Uncoded 09/08/20 08:55 AROUND EYES CRACK HONEY COUGH SURUP AdvReac Joint Pain Uncoded 09/08/20 08:55 Home Meds Home Medications Medication Instructions Recorded Confirmed etonogestrel-ethinyl estradiol 1 ea VAGINAL DIRECTED 08/22/18 09/08/20 [NuvaRing] calcium carbonate [Calcium 500] 500 mg PO BID 10/23/19 09/08/20 fluoxetine [Prozac] 20 mg PO QAM 10/23/19 09/08/20 levothyroxine [Tirosint] 150 mcg PO QAM 10/23/19 09/08/20 omeprazole 20 mg PO QAM 10/23/19 09/08/20 cholecalciferol (vitamin D3) 3,000 unit PO DAILY@1600 03/11/20 09/08/20 [Vitamin D3] dicyclomine 10 mg PO QID 03/11/20 09/08/20 ergocalciferol (vitamin D2) 50,000 unit PO .[id number] 03/11/20 09/08/20 [Vitamin D2] loratadine 10 mg PO QAM 08/21/20 09/08/20 oxycodone 5 mg PO Q8H PRN 09/08/20 09/08/20 prednisone 9 mg PO QAM 09/08/20 09/08/20 Results & Data (ED) Vital Signs Vital Signs - 24 hr 09/08/20 07:54 09/08/20 08:23 09/08/20 10:38 Temperature 36.9 C Temperature Source Oral Pulse Rate 102 H Pulse Rate [Left] 78 Pulse Rhythm Regular Pulse Rhythm [Left] Regular Pulse Strength Normal Pulse Strength [Left] Normal Respiratory Rate 18 18 Respiratory Effort / Characteristics Non-Labored Spontaneous Non-Labored Spontaneous Respiratory Depth Normal Normal Blood Pressure 130/60 Blood Pressure [Left Arm] 113/63 Blood Pressure Mean 83 Blood Pressure Mean [Left Arm] 79 Blood Pressure Position Lying Blood Pressure Position [Left Arm] Lying Pulse Oximetry 98 98 98 Oxygen Delivery Method Room Air Room Air Room Air Sepsis Recent Fever Within 48 Hours No Sepsis New/Unexplained Change in Mental Status N/A Sepsis Action Taken by Nursing No Action Required 09/08/20 12:38 09/08/20 14:38 09/08/20 16:30 Temperature Temperature Source Pulse Rate Pulse Rate [Left] 78 69 92 H Pulse Rhythm Pulse Rhythm [Left] Pulse Strength Pulse Strength [Left] Respiratory Rate 16 18 20 Respiratory Effort / Characteristics Respiratory Depth Blood Pressure Blood Pressure [Left Arm] 113/84 112/83 102/77 Blood Pressure Mean Blood Pressure Mean [Left Arm] 93 92 85 Blood Pressure Position Blood Pressure Position [Left Arm] Pulse Oximetry 98 96 99 Oxygen Delivery Method Room Air Room Air Room Air Sepsis Recent Fever Within 48 Hours Sepsis New/Unexplained Change in Mental Status Sepsis Action Taken by Nursing Laboratory Data Result diagrams: 09/08/20 08:14 09/08/20 08:14 Lab Results 09/08/20 09/08/20 09/08/20 Range/Units 08:14 08:14 08:16 WBC 13.54 H (4.8-10.8) K/uL RBC 4.26 (4.2-5.4) M/uL Hgb 11.4 L (12.0-16.0) g/dL Hct 35.3 L (37-47) % MCV 82.9 (80-100) fL MCH 26.8 (25-34) pg MCHC 32.3 (32-36) g/dL RDW Std Deviation 41.9 (36.4-46.3) fL RDW Coeff of Chaim 13.9 (11.5-14.5) % Plt Count 409 H (130-400) K/uL MPV 9.4 (7.4-10.4) fL Immature Gran % (Auto) 0.4 % Neut % (Auto) 83.1 % Lymph % (Auto) 11.1 % Providence % (Auto) 4.7 % Eos % (Auto) 0.5 % Baso % (Auto) 0.2 % Neut # (Auto) 11.25 H (1.4-6.5) K/uL Lymph # (Auto) 1.50 (1.2-3.4) K/uL Providence # (Auto) 0.63 H (0.11-0.59) K/uL Eos # (Auto) 0.07 (0-0.5) K/uL Baso # (Auto) 0.03 (0-0.2) K/uL Immature Gran # (Auto) 0.06 H (0.00-0.02) K/uL Sodium 138 (136-145) mmol/L Potassium 4.0 (3.5-5.1) mmol/L Chloride 108 H (98-107) mmol/L Carbon Dioxide 22 (21-32) mmol/L Anion Gap 9.0 (3-11) BUN 15 (7-18) mg/dl Creatinine 1.13 (0.6-1.2) mg/dl Est Cr Clr Drug Dosing 64.3 ml/min Est GFR ( Amer) 72.4 Est GFR (Non-Af Amer) 62.5 BUN/Creatinine Ratio 13.2 (10-20) Glucose 87 (70-99) mg/dl Lactate (0.4-2.0) mmol/L Calcium 9.5 (8.5-10.1) mg/dl Total Bilirubin 0.4 (0.2-1) mg/dl AST 36 (15-37) U/L ALT 71 (12-78) U/L Alkaline Phosphatase 176 H (45-117) U/L Total Protein 7.2 (6.4-8.2) gm/dl Albumin 3.1 L (3.4-5.0) gm/dl Globulin 4.1 H (2.5-4.0) gm/dl Albumin/Globulin Ratio 0.8 L (0.9-2) Lipase 112 (73-393) U/L HCG, Qual Negative (Negative) Urine Color Urine Appearance (Clear) Urine pH (4.5-7.5) Ur Specific Mallard (1.000-1.030) Urine Protein (Negative) Urine Glucose (UA) (Negative) Urine Ketones (Negative) Urine Blood (Negative) Urine Nitrite (Negative) Urine Bilirubin (Negative) Urine Urobilinogen (Negative) Ur Leukocyte Esterase (Negative) Urine WBC (Auto) (0-5) /hpf Urine RBC (Auto) (0-4) /hpf U Hyaline Cast (Auto) (0-5) /lpf U Epithel Cells (Auto) (0-5) /lpf Urine Bacteria (Auto) (Negative) SARS-CoV-2 Ag (Rapid) (Negative) 02/02/21 02/02/21 02/02/21 Range/Units 08:35 13:25 Unknown WBC (4.8-10.8) K/uL RBC (4.2-5.4) M/uL Hgb (12.0-16.0) g/dL Hct (37-47) % MCV (80-100) fL MCH (25-34) pg MCHC (32-36) g/dL RDW Std Deviation (36.4-46.3) fL RDW Coeff of Chaim (11.5-14.5) % Plt Count (130-400) K/uL MPV (7.4-10.4) fL Immature Gran % (Auto) % Neut % (Auto) % Lymph % (Auto) % Providence % (Auto) % Eos % (Auto) % Baso % (Auto) % Neut # (Auto) (1.4-6.5) K/uL Lymph # (Auto) (1.2-3.4) K/uL Providence # (Auto) (0.11-0.59) K/uL Eos # (Auto) (0-0.5) K/uL Baso # (Auto) (0-0.2) K/uL Immature Gran # (Auto) (0.00-0.02) K/uL Sodium (136-145) mmol/L Potassium (3.5-5.1) mmol/L Chloride (98-107) mmol/L Carbon Dioxide (21-32) mmol/L Anion Gap (3-11) BUN (7-18) mg/dl Creatinine (0.6-1.2) mg/dl Est Cr Clr Drug Dosing ml/min Est GFR ( Amer) Est GFR (Non-Af Amer) BUN/Creatinine Ratio (10-20) Glucose (70-99) mg/dl Lactate 1.4 (0.4-2.0) mmol/L Calcium (8.5-10.1) mg/dl Total Bilirubin (0.2-1) mg/dl AST (15-37) U/L ALT (12-78) U/L Alkaline Phosphatase (45-117) U/L Total Protein (6.4-8.2) gm/dl Albumin (3.4-5.0) gm/dl Globulin (2.5-4.0) gm/dl Albumin/Globulin Ratio (0.9-2) Lipase (73-393) U/L HCG, Qual (Negative) Urine Color Yellow Urine Appearance Clear (Clear) Urine pH 5.5 (4.5-7.5) Ur Specific Mallard > 1.045 H (1.000-1.030) Urine Protein Negative (Negative) Urine Glucose (UA) Negative (Negative) Urine Ketones Negative (Negative) Urine Blood 2+ H (Negative) Urine Nitrite Negative (Negative) Urine Bilirubin Negative (Negative) Urine Urobilinogen Negative (Negative) Ur Leukocyte Esterase Negative (Negative) Urine WBC (Auto) 1-5 (0-5) /hpf Urine RBC (Auto) 10-30 H (0-4) /hpf U Hyaline Cast (Auto) 5-10 H (0-5) /lpf U Epithel Cells (Auto) >30 H (0-5) /lpf Urine Bacteria (Auto) Negative (Negative) SARS-CoV-2 Ag (Rapid) Negative (Negative) Administered Medications Sodium Chloride (Nss 1000ml) 1,000 mls @ 125 mls/hr IV .Q8H [facility] Stop: 10/08/20 15:59 Last Admin: 09/08/20 16:15 Dose: 125 mls/hr Documented by: [id number] Morphine Sulfate (Morphine Sulfate 4 Mg/Ml 1 Ml Carp\Vial) 2 mg IV Q1H PRN PRN Reason: Pain Stop: 09/22/20 15:57 Last Admin: 09/08/20 16:15 Dose: 2 mg Documented by: [id number] Discontinued Medications Sodium Chloride (Nss 1000ml) 1,000 mls @ 999 mls/hr IV .Q1H1M ONE Stop: 09/08/20 09:14 Last Infusion: 09/08/20 09:35 Dose: 0 mls/hr Documented by: [id number] Admin: 09/08/20 08:28 Dose: 999 mls/hr Documented by: [id number] Sodium Chloride (Nss 1000ml) 1,000 mls @ 999 mls/hr IV .Q1H1M MITRA Stop: 09/08/20 13:00 Last Infusion: 09/08/20 12:50 Dose: 0 mls/hr Documented by: [id number] Admin: 09/08/20 11:49 Dose: 999 mls/hr Documented by: [id number] Sodium Chloride (Nss 1000ml) 1,000 mls @ 999 mls/hr IV .Q1H1M ONE Stop: 09/08/20 13:44 Last Admin: 09/08/20 12:50 Dose: Not Given Documented by: [id number] Ioversol (Ioversol 100ml) 94 ml IV ONCE ONE Stop: 09/08/20 09:23 Last Admin: 09/08/20 09:23 Dose: 94 ml Documented by: [id number] Morphine Sulfate (Morphine Sulfate 4 Mg/Ml 1 Ml Carp\Vial) 4 mg IV NOW STA Stop: 09/08/20 08:17 Last Admin: 09/08/20 08:28 Dose: 4 mg Documented by: [id number] Morphine Sulfate (Morphine Sulfate 4 Mg/Ml 1 Ml Carp\Vial) 4 mg IV NOW STA Stop: 09/08/20 10:18 Last Admin: 09/08/20 10:38 Dose: 4 mg Documented by: [id number] Morphine Sulfate (Morphine Sulfate 2 Mg/Ml Carp) Confirm Administered Dose 2 mg .ROUTE .STK-MED ONE Stop: 09/08/20 16:09 Last Admin: 09/08/20 16:28 Dose: Not Given Documented by: [id number] Discharge Plan Visit Data Chief Complaint: Abdominal Pain ED Provider: Artie Matias ED Midlevel Provider: Caren Rivera Discharge Problem: Small bowel obstruction, Internal hernia, Crohn disease Patient Disposition: Admitted As Inpatient Condition: Good Forms Stand Alone [facility]: [facility] Prescriptions Prescriptions: No Action etonogestrel-ethinyl estradiol [NuvaRing] 0.12-0.015 mg/24 hr ring 1 ea Vaginal DIRECTED RF: 0 omeprazole 20 mg capsule,delayed release(DR/EC) 20 mg PO QAM RF: 0 levothyroxine [Tirosint] 150 mcg capsule 150 mcg PO QAM RF: 0 calcium carbonate [Calcium 500] 500 mg calcium (1,250 mg) Tablet 500 mg PO BID RF: 0 fluoxetine [Prozac] 20 mg capsule 20 mg PO QAM RF: 0 ergocalciferol (vitamin D2) [Vitamin D2] 1,250 mcg (50,000 unit) capsule 50,000 unit PO .[id number] RF: 0 dicyclomine 10 mg capsule 10 mg PO QID RF: 0 cholecalciferol (vitamin D3) [Vitamin D3] 25 mcg (1,000 unit) Capsule 3,000 unit PO DAILY@1600 RF: 0 loratadine 10 mg Tablet 10 mg PO QAM RF: 0 prednisone 1 mg Tablet 9 mg PO QAM RF: 0 oxycodone 5 mg capsule 5 mg PO Q8H PRN (Reason: pain) RF: 0 Referrals Referrals: [place] [Primary Care Provider] - Discharge Problem: Crohn disease Qualifiers: Gastrointestinal tract location: unspecified location Digestive disease complication type: unspecified complication Qualified Code(s): K50.919 - Crohn's disease, unspecified, with unspecified complications
[2020-09-08 08:54] LABS: Basophils # (auto) 0.03 K/uL (0-0.2); Basophils % (auto) 0.2 %; Eosinophils # (auto) 0.07 K/uL (0-0.5); Eosinophils % (auto) 0.5 %; Hematocrit (blood only) 35.3 % (37-47); Hemoglobin 11.4 g/dL (12.0-16.0); Immature Granulocytes # (auto) 0.06 K/uL (0.00-0.02); Immature Granulocytes % (auto) 0.4 %; Lymphocytes % (auto) 11.1 %; Mean Corpuscular Hemoglobin 26.8 pg (25-34); Mean Corpuscular Hgb Conc 32.3 g/dL (32-36); Mean Corpuscular Volume 82.9 fL (80-100); Mean Platelet Volume 9.4 fL (7.4-10.4); Monocytes # (auto) 0.63 K/uL (0.11-0.59); Monocytes % (auto) 4.7 %; Neutrophils # (auto) 11.25 K/uL (1.4-6.5); Neutrophils % (auto) 83.1 %; Platelet Count 409 K/uL (130-400); RDW Coefficient of Variation 13.9 % (11.5-14.5); RDW Standard Deviation 41.9 fL (36.4-46.3); Red Blood Count 4.26 M/uL (4.2-5.4); White Blood Count 13.54 K/uL (4.8-10.8)
[2020-09-08 08:57] LABS: Albumin Level 3.1 gm/dl (3.4-5.0); BUN Creatinine Ratio 13.2 (10-20); Calcium 9.5 mg/dl (8.5-10.1); Creatinine Clr Calc Pharmacy 64.3 ml/min; Est GFR (African American) 72.4; Est GFR (Non-African American) 62.5
[2020-09-08 09:00] LABS: Albumin Globulin Ratio 0.8 (0.9-2); Bilirubin,Total 0.4 mg/dl (0.2-1); Globulin 4.1 gm/dl (2.5-4.0); Total Protein 7.2 gm/dl (6.4-8.2)
[2020-09-08 09:04] LABS: Pregnancy Test, Serum Negative (Negative)
[2020-09-08] MEDS ORDERED: IOVERSOL 100ml IV ONE (09:22)
--- NOTE | 2020-09-08 09:54 | CT Scan Report ---
ABDOMEN AND PELVIS CT WITH IV CONTRAST CT DOSE: 290.60 mGy.cm HISTORY: Acute mid abdominal pain in a patient with history of Crohn's disease and ileostomy. Prior s ubtotal colectomy with right lower quadrant ileostomy. mid abd pain, hx crohns, ileostomy TECHNIQUE: Multiaxial CT images of the abdomen and pelvis were performed following the IV administrat ion of 94 cc of Optiray 320, A dose lowering technique was utilized adhering to the principles of AL MANNY. COMPARISON STUDY: CT abdomen and pelvis 08/21/2020 FINDINGS: The imaged inferior cardiac chambers are unremarkable. Clear lung bases. No pneumatosis or pneumoperitoneum. The spleen, pancreas and adrenal glands are unremarkable. Cholecystectomy. Unremark able liver. Patency of the hepatic and portal veins. Unremarkable kidneys, uterus and urinary bladder . Aorta and IVC are unremarkable. No adenopathy. Postoperative changes of subtotal colectomy with right lower quadrant ileostomy. There is swirling of the mid to lower abdominal mesentery with numerous narrowed small bowel loops. There is a dilated lo op of small bowel measuring up to 3.9 cm within the left paracentral mid abdomen on image 214 series 3 with interrupted luminal narrowing in caliber change on image 236 series 3. There is mild wall thic kening noted involving several loops of small bowel within the pelvis. The previously questioned ente rocutaneous fistula is not definitively seen on today's study. No abscess. Mild mesenteric edema with trace free fluid. Unremarkable soft tissues. Scattered probable bone islands noted. Bones appear intact. IMPRESSION: 1. Postoperative changes of subtotal colectomy with right lower quadrant ileostomy. 2. There is swirling of the mid mesentery with marked luminal narrowing and upstream dilation involvi ng a loop of small bowel within the left midabdomen suspicious for developing obstruction with media relations intern al hernia. 3. No pneumoperitoneum or abscess identified. 4. Mild wall thickening involving a few loops of small bowel within the pelvis may be related to elie ent's reported inflammatory bowel disease. ACT 112: Negative or not required by law. The above report was generated using voice recognition software. It may contain grammatical, syntax o r spelling errors. Electronically signed by: Isaac Ramirez M.D. 09/08/2020 9:53 AM
[2020-09-08] MEDS ORDERED: SODIUM CHLORIDE 0.9% 1000ML 1,000 ML IV SCH (12:00)
[2020-09-08 13:48] LABS: Appearance Urine Clear (Clear); Bacteria Urine Automated Negative (Negative); Bilirubin Urine Negative (Negative); Blood Urine 2+ (Negative); Color Urine Yellow; Epithelial Cell Urine Auto >30 /lpf (0-5); Glucose Urine UA Negative (Negative); Ketones Urine Negative (Negative); Leukocyte Esterase Urine Negative (Negative); Nitrite Urine Negative (Negative); Protein Urine Negative (Negative); Specific Gravity Urine > 1.045 (1.000-1.030); Urobilinogen Urine Negative (Negative); pH Urine 5.5 (4.5-7.5)
--- NOTE | 2020-09-08 15:54 | Surgery Consultation ---
Date of Consultation September 08, 2020 Assessment & Plan (1) Abdominal pain: CT scan reviewed. I believe clinically she is having an acute Crohn's flare more than a true bowel obstruction. They have accepted her [facility] which is the best place for her considering her very complicated surgical course over the past several months. Currently she does not have a surgical abdomen requiring emergency intervention. If they are unable to transport her within the next 12 hours I would recommend gastroenterology consult for potential initiation of IV steroids/acute Crohn's medications for her acute flare. I have discussed with the emergency room staff and they will also initiate maintenance IV fluids at this time. Should she clinically deteriorate or worsen prior to transfer the ER should contact me. (2) Crohn disease: History of Present Illness History of Present Illness Pleasant 34-year-old female who was diagnosed this past year with Crohn's disease. She was transferred emergently to [facility] this past summer and underwent a subtotal colectomy for toxic megacolon. having that ileostomy reversed She ended up this past fall and within 1 to 2 weeks of her reversal she ended up coming in with an acute Crohn's flare with a perforation in her small bowel requiring get another surgery with another ileostomy. She presents today with a 5 to 6-day history of mid abdominal discomfort. No nausea or vomiting. No fevers. CT scan shows potentially developing small bowel obstruction with some swirling of the mesentery as well as some thickened bowel loops in the lower abdomen/pelvis. She feels as though she is having acute Crohn's flare having had several in the past. Allergies Allergy/AdvReac Type Severity Reaction Status Date / Time hydromorphone Allergy Severe MUSCLE Verified 09/08/20 08:55 SHAKE ibuprofen Allergy Severe Intolerance Verified 09/08/20 08:55 to NSAIDS Sulfa (Sulfonamide Allergy Severe SKIN BURN Verified 09/08/20 08:55 Antibiotics) doxycycline AdvReac Severe DIARRHEA,UT Verified 09/08/20 08:55 I,VOMIT edetic acid AdvReac Severe HEADACHES Verified 09/08/20 08:55 rifaximin AdvReac Severe HEADACHES Verified 09/08/20 08:55 risedronate sodium AdvReac Severe SHAKY/FEVER Verified 09/08/20 08:55 /VOMITING azithromycin AdvReac DIARRHEA, Verified 09/08/20 08:55 LIVER PAIN, HEADACHE leflunomide AdvReac VASCULITIS Verified 09/08/20 08:55 methotrexate AdvReac Vomiting Verified 09/08/20 08:55 mycophenolate mofetil AdvReac Watery Eye Verified 09/08/20 08:55 [From CellCept] ondansetron [From Zofran] AdvReac Headache Verified 09/08/20 08:55 FLOURORESIN AdvReac SKIN Uncoded 09/08/20 08:55 AROUND EYES CRACK HONEY COUGH SURUP AdvReac Joint Pain Uncoded 09/08/20 08:55 Home Medications Medication Instructions Recorded Confirmed Type etonogestrel-ethinyl estradiol 1 ea VAGINAL DIRECTED 08/22/18 09/08/20 History [NuvaRing] calcium carbonate [Calcium 500] 500 mg PO BID 10/23/19 09/08/20 History fluoxetine [Prozac] 20 mg PO QAM 10/23/19 09/08/20 History levothyroxine [Tirosint] 150 mcg PO QAM 10/23/19 09/08/20 History omeprazole 20 mg PO QAM 10/23/19 09/08/20 History cholecalciferol (vitamin D3) 3,000 unit PO DAILY@1600 03/11/20 09/08/20 History [Vitamin D3] dicyclomine 10 mg PO QID 03/11/20 09/08/20 History ergocalciferol (vitamin D2) 50,000 unit PO .[id number] 03/11/20 09/08/20 History [Vitamin D2] loratadine 10 mg PO QAM 08/21/20 09/08/20 History oxycodone 5 mg PO Q8H PRN 09/08/20 09/08/20 History prednisone 9 mg PO QAM 09/08/20 09/08/20 History Patient History Medical History Allergic rhinitis Autoimmune disorder Crohn disease Ileostomy, has currently Primary sclerosing cholangitis Secondary Sjogren's syndrome Spondyloarthritis Thyroid cancer Ulcerative colitis Surgical History H/O colectomy Hx of colonoscopy Family History Other Family history non-contributory Social History Smoking Status: Never smoker Second Hand Exposure: No; Hx Alcohol Use: Yes Alcohol type: wine and hard liquor Alcohol Intake Frequency: Monthly or Less Hx Substance Use: No Preferred Language: Lithuanian Communication Ability: Effective Experimental Welder Required: No Beliefs That Will Affect Care: None Current Living Situation: Alone current occupational status: employed 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 Feels Safe at Home: Yes Assistive Devices: None Review of Systems Review of Systems: All systems reviewed & are unremarkable except as noted in HPI & below Physical Exam Constitutional: WD/WN, vitals as above no acute distress and not ill appearing Eyes: PERRL, conjunctivae normal, anicteric sclerae EOM intact bilaterally ENMT: external ear and nose normal, oropharynx normal Ears: no hearing impairment Neck: trachea midline, no thyromegaly Respiratory: normal respiratory effort; no respiratory distress and does not use accessory muscles Cardiovascular: Rate/Rhythm: regular rate and regular rhythm Gastrointestinal (Abdomen): Soft. Mid abdominal tenderness. No guarding rebound or rigidity. Ileostomy is viable and functioning. No palpable ventral hernias. No evidence of peritonitis. Skin: no rashes, warm and dry Psychiatric: Orientation: alert, oriented x 3 and cooperative Results & Data ([facility]) Vital Signs (Past 12 Hours) Vital Signs Temp Pulse Pulse Resp BP BP Pulse Ox 09/08/20 14:38 69 18 112/83 96 09/08/20 12:38 78 16 113/84 98 09/08/20 10:38 78 18 113/63 98 09/08/20 08:23 98 09/08/20 07:54 36.9 C 102 H 18 130/60 98 PG Care Time/CCT Total # of Minutes Spent Total Time Spent with Patient: Total time spent is greater than 50% in coordination of care (as documented) at patient's floor/unit and/or counseling patient: Coding Level of Care Code 22926 Office/OBS Consult Lvl 4 Diagnoses Abdominal pain R10.33 Abdominal location: periumbilical Crohn disease K50.90 (1) Abdominal pain Abdominal location: periumbilical Qualified Code(s): R10.33 - Periumbilical pain
[2020-09-08] MEDS ORDERED: MoRPHine SULFATE 2 MG/ML CARP ONE ×2 (16:08→18:35)
[2020-09-08] MEDS: SODIUM CHLORIDE 0.9% 1000ML 1,000 ML IV SCH ×2 (16:15→23:09)
[2020-09-08] MEDS: MoRPHine SULFATE 4 MG/ML 1 ML CARP\\VIAL IV PRN ×2 (16:15→18:38)
--- NOTE | 2020-09-08 16:56 | History & Physical Report ---
Date of Service September 08, 2020 Assessment & Plan (1) Abdominal pain: Ms. Dunne is a 34-year-old female with a history of Crohn's Disease s/p Ileostomy, ?Ulcerative Colitis complicated by Toxic Megacolon s/p Subtotal Colectomy, Spondyloarthritis, Hypothyroidism, and a history of Thyroid Cancer who presents to [facility] ER complaining of Severe Gretel-umbilical Abdominal Pain over the past 6 days. Patient admits to having some level of constant abdominal pain since her last surgery on 07/05/2020, but her pain has definitely become more severe over the past 6 days. Her abdominal pain is constant, in the mid abdomen, gretel-umbilical region, and in her lower abdomen. She describes the pain as sharp and aching, and rates the pain 10/10. She has been taking her prescribed Oxycodone 10 mg t.i.d. -- which normally relieves her pain -- but this regimen has not reduced her current pain at all. She states this feels similar to the pain she had before her surgery in June 2020. Patient denies any fevers or chills. She has had some nausea but no vomiting. She denies any chest pain, chest tightness, shortness of breath, myalgias, arthralgias, headaches, body aches, or malaise. She denies any changes in her urinary patterns. She specifically denies any urinary urgency, frequency, or dysuria. Patient has a complicated surgical history and is followed by Colorectal Surgery at [facility]. Her last surgery at the end of June 2020 was due to necrotic bowel. She is having some watery output from her ileostomy, which she feels is due to flare of her Crohn's. Patient was supposed to have a sigmoidoscopy at [facility], but when she was there her rapid test came back positive for COVID-19 and they said they could not do the procedure for at least 2 weeks. She has since had 2 Negative COVID-19 test and she believes her positive test was a false positive. Nonetheless she has not been able to get a new appointment with her doctors. She her last meal was last evening at 1900. Dr. Thompson was consulted and feels that her current abdominal pain is secondary to a flare in her Crohn's Disease, not due to a bowel obstruction. We are currently waiting for [facility] to accept her in transfer. -- Admit to Med-Surg floor. -- Continue IVF's. -- Consult Gastroenterology regarding flare of Crohn's Disease. -- Monitor daily BMP, LFT's, and CBC with Diff. -- Check ESR. -- Surgeon's input is appreciated. -- Continue Omeprazole 20 mg daily. -- Continue Prednisone 9 mg daily for the time being, until evaluated by gastroenterology. -- Transfer to [facility] when she is accepted in transfer. (2) Crohn disease: -- As outlined above. (3) Ileostomy in place: -- Ileostomy appears to be functioning appropriately. -- Continue ostomy care. History of Present Illness Chief Complaint: -- Abdominal Pain. -- Crohn's Disease. -- Toxic Megacolon s/p Subtotal Colectomy, s/p Ileostomy. Primary Care Provider: [facility] Ms. Dunne is a 34-year-old female with a history of Crohn's Disease s/p Ileostomy, ?Ulcerative Colitis complicated by Toxic Megacolon s/p Subtotal Colectomy, Spondyloarthritis, Hypothyroidism, and a history of Thyroid Cancer who presents to [facility] ER complaining of Severe Gretel-umbilical Abdominal Pain over the past 6 days. Patient admits to having some level of constant abdominal pain since her last surgery on 07/05/2020, but her pain has definitely become more severe over the past 6 days. Patient has a complicated surgical history and is followed by Colorectal Surgery at [facility]. Her last surgery at the end of June 2020 was due to necrotic bowel. She was having some watery output from her ileostomy, which she feels is due to flare of her Crohn's, but she also notes that she had 2 large bowel movements from her rectum which is unusual after receiving the ileostomy. No blood noted in the stool. Patient was supposed to have a sigmoidoscopy at [facility], but when she was there her rapid test came back positive for COVID-19 and they said they could not do the procedure for at least 2 weeks. She has since had 2 Negative COVID-19 test and she believes her positive test was a false positive. Nonetheless she has not been able to get a new appointment with her doctors. Her abdominal pain is constant, in the mid abdominal area around the umbilical region and lower, she describes it as sharp and aching, and rates the pain 10/10. She has been taking her prescribed Oxycodone 10 mg t.i.d. -- which normally relieves her pain -- but this regimen has not reduced her current pain at all. She states this feels similar to the pain she had before her surgery in June 2020. Patient denies any fevers or chills. She has had some nausea but no vomiting. She denies any chest pain, chest tightness, shortness of breath, myalgias, arthralgias, headaches, body aches, or malaise. She denies any changes in her urinary patterns. She specifically denies any urinary urgency, frequency, or dysuria. She her last meal was last evening at 1900. Surgical Consultation with Dr. Yohannes Thompson was done today 09/08/2020 and is summarized as follows "I believe clinically she is having an acute Crohn's flare more than a true bowel obstruction. They have accepted her [facility] which is the best place for her considering her very complicated surgical course over the past several months. Currently she does not have a surgical abdomen requiring emergency intervention. If they are unable to transport her within the next 12 hours I would recommend gastroenterology consult for potential initiation of IV steroids/acute Crohn's medications for her acute flare. I have discussed with the emergency room staff and they will also initiate maintenance IV fluids at this time. Should she clinically deteriorate or worsen prior to transfer the ER should contact me." Allergies Allergy/AdvReac Type Severity Reaction Status Date / Time hydromorphone Allergy Severe MUSCLE Verified 09/08/20 08:55 SHAKE ibuprofen Allergy Severe Intolerance Verified 09/08/20 08:55 to NSAIDS Sulfa (Sulfonamide Allergy Severe SKIN BURN Verified 09/08/20 08:55 Antibiotics) doxycycline AdvReac Severe DIARRHEA,UT Verified 09/08/20 08:55 I,VOMIT edetic acid AdvReac Severe HEADACHES Verified 09/08/20 08:55 rifaximin AdvReac Severe HEADACHES Verified 09/08/20 08:55 risedronate sodium AdvReac Severe SHAKY/FEVER Verified 09/08/20 08:55 /VOMITING azithromycin AdvReac DIARRHEA, Verified 09/08/20 08:55 LIVER PAIN, HEADACHE leflunomide AdvReac VASCULITIS Verified 09/08/20 08:55 methotrexate AdvReac Vomiting Verified 09/08/20 08:55 mycophenolate mofetil AdvReac Watery Eye Verified 09/08/20 08:55 [From CellCept] ondansetron [From Zofran] AdvReac Headache Verified 09/08/20 08:55 FLOURORESIN AdvReac SKIN Uncoded 09/08/20 08:55 AROUND EYES CRACK HONEY COUGH SURUP AdvReac Joint Pain Uncoded 09/08/20 08:55 Home Medications Medication Instructions Recorded Confirmed Type etonogestrel-ethinyl estradiol 1 ea VAGINAL DIRECTED 08/22/18 09/08/20 History [NuvaRing] calcium carbonate [Calcium 500] 500 mg PO BID 10/23/19 09/08/20 History fluoxetine [Prozac] 20 mg PO QAM 10/23/19 09/08/20 History levothyroxine [Tirosint] 150 mcg PO QAM 10/23/19 09/08/20 History omeprazole 20 mg PO QAM 10/23/19 09/08/20 History cholecalciferol (vitamin D3) 3,000 unit PO DAILY@1600 03/11/20 09/08/20 History [Vitamin D3] dicyclomine 10 mg PO QID 03/11/20 09/08/20 History ergocalciferol (vitamin D2) 50,000 unit PO .[id number] 03/11/20 09/08/20 History [Vitamin D2] loratadine 10 mg PO QAM 08/21/20 09/08/20 History oxycodone 5 mg PO Q8H PRN 09/08/20 09/08/20 History prednisone 9 mg PO QAM 09/08/20 09/08/20 History Past Med/Surg History Medical History Allergic rhinitis Autoimmune disorder Crohn disease Ileostomy, has currently Primary sclerosing cholangitis Secondary Sjogren's syndrome Spondyloarthritis Thyroid cancer Ulcerative colitis Surgical History H/O colectomy Hx of colonoscopy Family History Other Family history non-contributory Social History Smoking Status: Never smoker Second Hand Exposure: No; Hx Alcohol Use: Yes Alcohol type: wine and hard liquor Alcohol Intake Frequency: Monthly or Less Hx Substance Use: No Preferred Language: Martiniquais Communication Ability: Effective Supervisor Laboratory Animal Facility Required: No Beliefs That Will Affect Care: None Current Living Situation: Alone current occupational status: employed 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 Feels Safe at Home: Yes Assistive Devices: None Review of Systems Review of Systems: All systems reviewed & are unremarkable except as noted in Subjective Physical Exam Physical Exam: GENERAL: Patient in no acute distress. HEENT: Head is atraumatic, normocephalic. EOM's intact. Sclerae are anicteric. Facies symmetric. No perioral cyanosis. NECK: No JVD. JVP is at the level of the clavicle sitting upright. Carotid upstrokes are + 2 bilaterally. CHEST/LUNGS: Clear to auscultation throughout all lung garcias. No wheezes, rales, or crackles. CVS: S1 and S2 are regular without obvious murmurs, gallops, or rubs. PMI is nondisplaced. No lifts, heaves, or thrills. No abdominal aortic or renal bruits. ABDOMINAL EXAM: Bowel sounds are present. Ileostomy present. Diffusely tender in the mid and lower abdomen. No guarding, rigidity, or rebound tenderness. EXTREMITIES: No clubbing or cyanosis. No edema. Intact posterior tibial and radial pulses bilaterally. Extremities are well perfused. NEUROLOGIC EXAM: Patient is awake, alert, and oriented. Pleasant and cooperative. Answers questions appropriately. Speech is clear. Results & Data Results & Data ([facility]) Vital Signs (Past 12 Hours) Vital Signs Temp Pulse Pulse Resp BP BP Pulse Ox 09/08/20 16:30 92 H 20 102/77 99 09/08/20 14:38 69 18 112/83 96 09/08/20 12:38 78 16 113/84 98 09/08/20 10:38 78 18 113/63 98 09/08/20 08:23 98 09/08/20 07:54 36.9 C 102 H 18 130/60 98 Laboratory Results Laboratory Results - last 24 hr 09/08/20 09/08/20 09/08/20 08:14 08:14 08:16 WBC 13.54 H RBC 4.26 Hgb 11.4 L Hct 35.3 L MCV 82.9 MCH 26.8 MCHC 32.3 RDW Std Deviation 41.9 RDW Coeff of Chaim 13.9 Plt Count 409 H MPV 9.4 Immature Gran % (Auto) 0.4 Neut % (Auto) 83.1 Lymph % (Auto) 11.1 Forest % (Auto) 4.7 Eos % (Auto) 0.5 Baso % (Auto) 0.2 Neut # (Auto) 11.25 H Lymph # (Auto) 1.50 Forest # (Auto) 0.63 H Eos # (Auto) 0.07 Baso # (Auto) 0.03 Immature Gran # (Auto) 0.06 H Sodium 138 Potassium 4.0 Chloride 108 H Carbon Dioxide 22 Anion Gap 9.0 BUN 15 Creatinine 1.13 Est Cr Clr Drug Dosing 64.3 Est GFR ( Amer) 72.4 Est GFR (Non-Af Amer) 62.5 BUN/Creatinine Ratio 13.2 Glucose 87 Lactate Calcium 9.5 Total Bilirubin 0.4 AST 36 ALT 71 Alkaline Phosphatase 176 H Total Protein 7.2 Albumin 3.1 L Globulin 4.1 H Albumin/Globulin Ratio 0.8 L Lipase 112 HCG, Qual Negative Urine Color Urine Appearance Urine pH Ur Specific [place] Urine Protein Urine Glucose (UA) Urine Ketones Urine Blood Urine Nitrite Urine Bilirubin Urine Urobilinogen Ur Leukocyte Esterase Urine WBC (Auto) Urine RBC (Auto) U Hyaline Cast (Auto) U Epithel Cells (Auto) Urine Bacteria (Auto) SARS-CoV-2 Ag (Rapid) 09/08/20 09/08/20 09/08/20 08:35 13:25 Unknown WBC RBC Hgb Hct MCV MCH MCHC RDW Std Deviation RDW Coeff of Chaim Plt Count MPV Immature Gran % (Auto) Neut % (Auto) Lymph % (Auto) Forest % (Auto) Eos % (Auto) Baso % (Auto) Neut # (Auto) Lymph # (Auto) Forest # (Auto) Eos # (Auto) Baso # (Auto) Immature Gran # (Auto) Sodium Potassium Chloride Carbon Dioxide Anion Gap BUN Creatinine Est Cr Clr Drug Dosing Est GFR ( Amer) Est GFR (Non-Af Amer) BUN/Creatinine Ratio Glucose Lactate 1.4 Calcium Total Bilirubin AST ALT Alkaline Phosphatase Total Protein Albumin Globulin Albumin/Globulin Ratio Lipase HCG, Qual Urine Color Yellow Urine Appearance Clear Urine pH 5.5 Ur Specific [place] > 1.045 H Urine Protein Negative Urine Glucose (UA) Negative Urine Ketones Negative Urine Blood 2+ H Urine Nitrite Negative Urine Bilirubin Negative Urine Urobilinogen Negative Ur Leukocyte Esterase Negative Urine WBC (Auto) 1-5 Urine RBC (Auto) 10-30 H U Hyaline Cast (Auto) 5-10 H U Epithel Cells (Auto) >30 H Urine Bacteria (Auto) Negative SARS-CoV-2 Ag (Rapid) Negative Diagnostic Findings CT SCAN Abdomen/Pelvis 09/08/2020: The imaged inferior cardiac chambers are unremarkable. Clear lung bases. No pneumatosis or pneumoperitoneum. The spleen, pancreas and adrenal glands are unremarkable. Cholecystectomy. Unremarkable liver. Patency of the hepatic and portal veins. Unremarkable kidneys, uterus and urinary bladder. Aorta and IVC are unremarkable. No adenopathy. Postoperative changes of subtotal colectomy with right lower quadrant ileostomy. There is swirling of the mid to lower abdominal mesentery with numerous narrowed small bowel loops. There is a dilated loop of small bowel measuring up to 3.9 cm within the left paracentral mid abdomen on image 214 series 3 with interrupted luminal narrowing in caliber change on image 236 series 3. There is mild wall thickening noted involving several loops of small bowel within the pelvis. The previously questioned enterocutaneous fistula is not definitively seen on today's study. No abscess. Mild mesenteric edema with trace free fluid. Unremarkable soft tissues. Scattered probable bone islands noted. Bones appear intact. IMPRESSION: 1. Postoperative changes of subtotal colectomy with right lower quadrant ileostomy. 2. There is swirling of the mid mesentery with marked luminal narrowing and upstream dilation involving a loop of small bowel within the left midabdomen suspicious for developing obstruction with internal hernia. 3. No pneumoperitoneum or abscess identified. 4. Mild wall thickening involving a few loops of small bowel within the pelvis may be related to patient's reported inflammatory bowel disease. Code Status & VTE Plan Code Status Full Code VTE Prophylaxis Plan VTE Prophylaxis will be ordered: Yes Supervising Physician Co-Signing Physician Notes I personally saw and examined the patient. I verified all puckett points and agree with ALY Loya with the following exceptions and/or additions: 34-year-old female with Crohn's colitis (previously diagnosed ulcerative colitis) with complex medical history including toxic megacolon, subtotal colectomy, necrotic small bowel and subsequent ileostomy formation under surgical and gastroenterology care at [facility] presents to the ER with abdominal pain for the past 6 days. O/E alert and orientated x3, no acute distress, chest CTA B, heart sounds 1+2, no murmurs, diffuse abdominal pain on palpation with guarding but without rebound tenderness A/P Agree with surgery consult that abdominal pain appears much more consistent with Crohn's flare than small bowel obstruction without nausea or vomiting, although certainly high likelihood of both. Discussed case with Dr. Mills (gastroenterology) and will start Solu-Medrol IV 40 mg daily. Consult gastroenterology for a.m. Transfer already arranged by ER and awaiting bed at [facility]. Acetaminophen IV 1 g 3 times daily for pain control. Morphine as needed but discussed with patient trying to limit use as likely to make disease course worse with ileus. Patient unable to take Dilaudid due to muscle shakes. PG Care Time/CCT Total # of Minutes Spent Total Time Spent with Patient: Total time spent is greater than 50% in coordination of care (as documented) at patient's floor/unit and/or counseling patient:45 Coding Level of Care Code 04898 Initial Inpt Care Lvl 3 Diagnoses Abdominal pain R10.33 Abdominal location: periumbilical Crohn disease K50.[address] Z93.2 Time Spent (min) 65 (1) Abdominal pain Abdominal location: periumbilical Qualified Code(s): R10.33 - Periumbilical pain
[2020-09-08] MEDS ORDERED: POLYETHYLENE (MIRALAX) 17 GM PACK PO PRN (19:34)
[2020-09-08] MEDS ORDERED: ALUMINUM/MAGNESIUM SUSP 30 ML UDC PO PRN (19:34)
[2020-09-08] MEDS ORDERED: MAGNESIUM HYDROXIDE SUSP 30 ML UDC PO PRN (19:34)
[2020-09-08] MEDS ORDERED: ACETAMINOPHEN 325 MG TAB PO PRN (19:34)
[2020-09-08] MEDS ORDERED: oxyCODONE HCL IR 5 MG TAB (IMMEDIATE RELEASE) PO PRN (19:44)
[2020-09-08] MEDS ORDERED: PATIENT'S OWN ORAL CONTRACEPTIVE PO SCH (20:00)
[2020-09-08] MEDS ORDERED: MoRPHine SULFATE 2 MG/ML CARP IV PRN (20:34)
[2020-09-08] MEDS: ACETAMINOPHEN 1,000 MG/100 ML VIAL IV SCH (21:08)
[2020-09-08] MEDS: CALCIUM 600MG + VIT D 400 IU TAB PO SCH (21:09)
[2020-09-08] MEDS: DICYCLOMINE HCL 10 MG CAP PO SCH (21:09)
[2020-09-09] MEDS: LEVOTHYROXINE SODIUM 150 MCG TABLET PO SCH (06:28)
[2020-09-09] MEDS: SODIUM CHLORIDE 0.9% 1000ML 1,000 ML IV SCH ×3 (06:28→22:56)
[2020-09-09] MEDS: ACETAMINOPHEN 1,000 MG/100 ML VIAL IV SCH ×3 (08:09→21:01)
[2020-09-09] MEDS: DICYCLOMINE HCL 10 MG CAP PO SCH ×4 (08:10→21:01)
[2020-09-09] MEDS: FLUoxetine HCL 20 MG CAP PO SCH (08:10)
[2020-09-09] MEDS: LORATADINE 10 MG TAB PO SCH (08:11)
[2020-09-09] MEDS: CALCIUM 600MG + VIT D 400 IU TAB PO SCH ×2 (08:11→21:01)
[2020-09-09] MEDS ORDERED: predniSONE 1 MG TAB PO SCH ×2 (09:00)
[2020-09-09] MEDS ORDERED: predniSONE 5 MG TAB PO SCH (09:00)
[2020-09-09] MEDS ORDERED: methylPREDNISolone 40 MG in SYRINGE 0 ML IV SCH (09:00)
[2020-09-09] MEDS ORDERED: PANTOprazole 40 MG TAB PO SCH (09:00)
[2020-09-09 09:08] LABS: Basophils # (auto) 0.01 K/uL (0-0.2); Basophils % (auto) 0.1 %; Hematocrit (blood only) 32.5 % (37-47); Hemoglobin 10.5 g/dL (12.0-16.0); Immature Granulocytes # (auto) 0.04 K/uL (0.00-0.02); Immature Granulocytes % (auto) 0.3 %; Lymphocytes % (auto) 17.1 %; Mean Corpuscular Hemoglobin 26.9 pg (25-34); Mean Corpuscular Hgb Conc 32.3 g/dL (32-36); Mean Corpuscular Volume 83.3 fL (80-100); Mean Platelet Volume 9.1 fL (7.4-10.4); Monocytes # (auto) 0.83 K/uL (0.11-0.59); Monocytes % (auto) 6.7 %; Neutrophils # (auto) 9.33 K/uL (1.4-6.5); Neutrophils % (auto) 75.8 %; Platelet Count 328 K/uL (130-400); RDW Standard Deviation 42.6 fL (36.4-46.3); White Blood Count 12.31 K/uL (4.8-10.8)
--- NOTE | 2020-09-09 09:20 | Surgery Progress Note ---
Date of Service September 09, 2020 Assessment & Plan (1) Abdominal pain: Patient reports intermittent abdominal pain, but is overall improved since admission Pt is afebrile. WBC 13.5. She is on IV steroids Abdomen is soft, non distended, with mild lower abdominal discomfort to palpation. Ostomy is functioning Agree with GI evaluation while patient is here for probable crohn's flare No plans for acute surgical intervention from our standpoint at this time Pt states she has a bed assigned to her at [place], but they are trying to sort out transportation. Hopefully she will be able to be transferred today pt seen. feeling somewhat better than yesterday. would like some liquids. abd: soft. mild tenderness. no peritoneal signs +loose bm's today. no n/v set for transfer hopefully later today to [facility]. no indication for urgent surgery at this time Admission and Anticipated Discharge Date Admission Date: September 08, 2020 Subjective Patient states she still has some intermittent lower abdominal pain, but it is improved from yesterday. She denies n/v. Her ostomy is functioning. Physical Exam Physical Exam: awake/alert Respiratory: normal respiratory effort Gastrointestinal (Abdomen): Inspection/Auscultation: abdomen not distended Percussion/Palpation: + abdomen tender (ttp in lower abdomen) and abdomen soft ostomy with + liquid stool in bag Results & Data ([facility]) Vital Signs (Past 12 Hours) Vital Signs Temp Pulse Resp BP Pulse Ox 09/09/20 08:01 36.7 C 99 H 18 111/76 100 09/08/20 23:00 36.6 C 81 16 88/57 L 97 PG Care Time/CCT Total # of Minutes Spent Total Time Spent with Patient: Total time spent is greater than 50% in coordination of care (as documented) at patient's floor/unit and/or counseling patient: Coding Level of Care Code 56622 Subseq Hosp Care Lvl 3 Diagnoses Abdominal pain R10.33 Abdominal location: periumbilical (1) Abdominal pain Abdominal location: periumbilical Qualified Code(s): R10.33 - Periumbilical pain
[2020-09-09 09:26] LABS: Albumin Level 2.8 gm/dl (3.4-5.0); Bilirubin Direct 0.1 mg/dl (0-0.2); Calcium 8.7 mg/dl (8.5-10.1); Creatinine Clr Calc Pharmacy 87.2 ml/min; Est GFR (African American) 115.1; Est GFR (Non-African American) 99.3; Potassium 3.6 mmol/L (3.5-5.1)
[2020-09-09 09:27] LABS: Bilirubin,Total 0.4 mg/dl (0.2-1); Total Protein 6.2 gm/dl (6.4-8.2)
[2020-09-09] MEDS ORDERED: PANTOprazole 40 MG in SYRINGE 0 ML IV SCH (11:00)
[2020-09-09 11:19] LABS: Influenza A virus by PCR Negative (Neg); Influenza B virus by PCR Negative (Neg); RSV by PCR Negative (Neg); SARS CoV2 RNA(COVID-19) InHosp NEGATIVE (Negative)
--- NOTE | 2020-09-09 12:31 | Gastrointestinal Consultation ---
Date of Consultation September 09, 2020 Assessment & Plan (1) Ileostomy in place: (2) Crohn disease: Patient admitted with abdominal pain and abnormal CT imaging suggestive of active Crohn's disease and possible obstruction. 1. Increase Solu-Medrol to 40 mg IV BID. 2. Keep NPO. 3. Agree with transfer to [facility] for management by primary IBD team and colorectal surgery. 4. Continue supportive care. Thank you for allowing us to participate in the care of this patient. If you have any questions or concerns, please do not hesitate to contact us. Supervising Physician Co-Signing Physician Notes I personally evaluated the patient and agree with the findings as documented by JASBIR Deshpande Exam: abd: soft, moderate lower abdominal tenderness, nd increase steroids to solumedrol 40 mg BID, transfer to [facility] when available. History of Present Illness Reason for Consultation: Abdominal pain/Crohn's flare Requesting Physician: Tommie Loya PA-C Attending Physician: Jah Santacruz DO History of Present Illness Patient is a 34 year-old female with a history of Crohn's ileitis status post total colectomy with ileostomy chronically managed at [facility]. She has had a complicated disease course and recently had a lower GI endoscopy due to positive COVID-19 testing. She states she has been having persistent abdominal pain in the lower abdomen for approximately one week. The pain is constant and rated as 6/10 currently. No nausea or vomiting. Ostomy output is liquid in nature. No bloody or black stools noted. Pain is worse with palpation and movement. No alleviating factors. On arrival, she did have a CT scan which was suggestive of a possible developing small bowel obstruction with internal hernia and mild wall thickening consistent with active Crohn's disease. She has been seen by general surgery and not felt to have an acute surgical abdomen. She is currently in the process of being transferred to [facility] today for acute management. GI has been consulted to provide clinical input while awaiting tertiary transfer. Allergies Allergy/AdvReac Type Severity Reaction Status Date / Time hydromorphone Allergy Severe MUSCLE Verified 09/08/20 08:55 SHAKE ibuprofen Allergy Severe Intolerance Verified 09/08/20 08:55 to NSAIDS Sulfa (Sulfonamide Allergy Severe SKIN BURN Verified 09/08/20 08:55 Antibiotics) doxycycline AdvReac Severe DIARRHEA,UT Verified 09/08/20 08:55 I,VOMIT edetic acid AdvReac Severe HEADACHES Verified 09/08/20 08:55 rifaximin AdvReac Severe HEADACHES Verified 09/08/20 08:55 risedronate sodium AdvReac Severe SHAKY/FEVER Verified 09/08/20 08:55 /VOMITING azithromycin AdvReac DIARRHEA, Verified 09/08/20 08:55 LIVER PAIN, HEADACHE leflunomide AdvReac VASCULITIS Verified 09/08/20 08:55 methotrexate AdvReac Vomiting Verified 09/08/20 08:55 mycophenolate mofetil AdvReac Watery Eye Verified 09/08/20 08:55 [From CellCept] ondansetron [From Zofran] AdvReac Headache Verified 09/08/20 08:55 FLOURORESIN AdvReac SKIN Uncoded 09/08/20 08:55 AROUND EYES CRACK HONEY COUGH SURUP AdvReac Joint Pain Uncoded 09/08/20 08:55 Home Medications Medication Instructions Recorded Confirmed Type etonogestrel-ethinyl estradiol 1 ea VAGINAL DIRECTED 08/22/18 09/08/20 History [NuvaRing] calcium carbonate [Calcium 500] 500 mg PO BID 10/23/19 09/08/20 History fluoxetine [Prozac] 20 mg PO QAM 10/23/19 09/08/20 History levothyroxine [Tirosint] 150 mcg PO QAM 10/23/19 09/08/20 History omeprazole 20 mg PO QAM 10/23/19 09/08/20 History cholecalciferol (vitamin D3) 3,000 unit PO DAILY@1600 03/11/20 09/08/20 History [Vitamin D3] dicyclomine 10 mg PO QID 03/11/20 09/08/20 History ergocalciferol (vitamin D2) 50,000 unit PO .[id number] 03/11/20 09/08/20 History [Vitamin D2] loratadine 10 mg PO QAM 08/21/20 09/08/20 History oxycodone 5 mg PO Q8H PRN 09/08/20 09/08/20 History prednisone 9 mg PO QAM 09/08/20 09/08/20 History Patient History Medical History Allergic rhinitis Autoimmune disorder Crohn disease Ileostomy, has currently Primary sclerosing cholangitis Secondary Sjogren's syndrome Spondyloarthritis Thyroid cancer Ulcerative colitis Surgical History H/O colectomy Hx of colonoscopy Family History Other Family history non-contributory Social History Smoking Status: Never smoker Second Hand Exposure: No; Do You Dip or Chew Tobacco: No; Tobacco Cessation Education Requested by Patient: No Hx Alcohol Use: Yes Alcohol type: wine and hard liquor Alcohol Intake Frequency: Monthly or Less Hx Substance Use: No Preferred Language: Azerbaijani Communication Ability: Effective 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 Electrical Required: No Beliefs That Will Affect Care: None Current Living Situation: Alone current occupational status: employed 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 Feels Safe at Home: Yes Safety Concerns: Feels Safe At This Time Assistive Devices: None Review of Systems Review of Systems: All systems reviewed & are unremarkable except as noted in HPI & below Physical Exam Constitutional: WD/WN, vitals as above well developed and well nourished Eyes: EOM intact bilaterally Neck: normal visual inspection Respiratory: normal respiratory effort, lungs clear to auscultation Cardiovascular: Rate/Rhythm: regular rate and regular rhythm Gastrointestinal (Abdomen): Inspection/Auscultation: + abdomen distended, normal bowel sounds and + abdominal surgical scar Percussion/Palpation: + abdomen tender and abdomen soft ileostomy intact RLQ Musculoskeletal: Extremities: extremities normal to inspection Skin: no rashes, warm and dry Psychiatric: A+Ox3, euthymic affect Results & Data ([facility]) Vital Signs (Past 12 Hours) Vital Signs Temp Pulse Resp BP Pulse Ox 09/09/20 08:01 36.7 C 99 H 18 111/76 100 Laboratory Results Abnormal lab results 09/08/20 09/08/20 09/09/20 Range/Units 08:14 13:25 08:50 WBC (4.8-10.8) K/uL RBC (4.2-5.4) M/uL Hgb (12.0-16.0) g/dL Hct (37-47) % Neut # (Auto) (1.4-6.5) K/uL [place] # (Auto) (0.11-0.59) K/uL Immature Gran # (Auto) (0.00-0.02) K/uL ESR 23 H (0-21) mm/hr Chloride 110 H (98-107) mmol/L AST 77 H (15-37) U/L ALT 165 H (12-78) U/L Alkaline Phosphatase 174 H (45-117) U/L Total Protein 6.2 L (6.4-8.2) gm/dl Albumin 2.8 L (3.4-5.0) gm/dl Ur Specific Rice > 1.045 H (1.000-1.030) Urine Blood 2+ H (Negative) Urine RBC (Auto) 10-30 H (0-4) /hpf U Hyaline Cast (Auto) 5-10 H (0-5) /lpf U Epithel Cells (Auto) >30 H (0-5) /lpf 09/09/20 Range/Units 08:50 WBC 12.31 H (4.8-10.8) K/uL RBC 3.90 L (4.2-5.4) M/uL Hgb 10.5 L (12.0-16.0) g/dL Hct 32.5 L (37-47) % Neut # (Auto) 9.33 H (1.4-6.5) K/uL [place] # (Auto) 0.83 H (0.11-0.59) K/uL Immature Gran # (Auto) 0.04 H (0.00-0.02) K/uL ESR (0-21) mm/hr Chloride (98-107) mmol/L AST (15-37) U/L ALT (12-78) U/L Alkaline Phosphatase (45-117) U/L Total Protein (6.4-8.2) gm/dl Albumin (3.4-5.0) gm/dl Ur Specific Rice (1.000-1.030) Urine Blood (Negative) Urine RBC (Auto) (0-4) /hpf U Hyaline Cast (Auto) (0-5) /lpf U Epithel Cells (Auto) (0-5) /lpf PG Care Time/CCT Total # of Minutes Spent Total Time Spent with Patient: Total time spent is greater than 50% in coordination of care (as documented) at patient's floor/unit and/or counseling patient: Coding Level of Care Code 16208 Office/OBS Consult Lvl [address] Z93.2 Crohn disease K50.919 Digestive disease complication type: unspecified complication Gastrointestinal tract location: unspecified location (1) Crohn disease Digestive disease complication type: unspecified complication Gastrointestinal tract location: unspecified location Qualified Code(s): K50.919 - Crohn's disease, unspecified, with unspecified complications
--- NOTE | 2020-09-09 12:49 | Discharge Summary ---
Date of Service September 09, 2020 Admission HPI Per Admitting Provider Ms. 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 Patient admits to having some level of constant abdominal pain since her last surgery on 07/05/2020, but her pain has definitely become more severe over the past 6 days. Patient has a complicated surgical history and is followed by Colorectal Surgery at [facility]. Her last surgery at the end of June 2020 was due to necrotic bowel. She was having some watery output from her ileostomy, which she feels is due to flare of her Crohn's, but she also notes that she had 2 large bowel movements from her rectum which is unusual after receiving the ileostomy. No blood noted in the stool. Patient was supposed to have a sigmoidoscopy at [facility], but when she was there her rapid test came back positive for COVID-19 and they said they could not do the procedure for at least 2 weeks. She has since had 2 Negative COVID-19 test and she believes her positive test was a false positive. Nonetheless she has not been able to get a new appointment with her doctors. Her abdominal pain is constant, in the mid abdominal area around the umbilical region and lower, she describes it as sharp and aching, and rates the pain 10/10. She has been taking her prescribed Oxycodone 10 mg t.i.d. -- which normally relieves her pain -- but this regimen has not reduced her current pain at all. She states this feels similar to the pain she had before her surgery in June 2020. Patient denies any fevers or chills. She has had some nausea but no vomiting. She denies any chest pain, chest tightness, shortness of breath, myalgias, arthralgias, headaches, body aches, or malaise. She denies any changes in her urinary patterns. She specifically denies any urinary urgenc y, frequency, or dysuria. She her last meal was last evening at 1900. Surgical Consultation with Dr. Yohannes Thompson was done today 09/08/2020 and is summarized as follows "I believe clinically she is having an acute Crohn's flare more than a true bowel obstruction. They have accepted her [facility] which is the best place for her considering her very complicated surgical course over the past several months. Currently she does not have a surgical abdomen requiring emergency intervention. If they are unable to transport her within the next 12 hours I would recommend gastroenterology consult for potential initiation of IV steroids/acute Crohn's medications for her acute flare. I have discussed with the emergency room staff and they will also initiate maintenance IV fluids at this time. Should she clinically deteriorate or worsen prior to transfer the ER should contact me." Admission Exam Per Admitting Provider GENERAL: Patient in no acute distress. HEENT: Head is atraumatic, normocephalic. EOM's intact. Sclerae are anicteric. Facies symmetric. No perioral cyanosis. NECK: No JVD. JVP is at the level of the clavicle sitting upright. Carotid upstrokes are + 2 bilaterally. CHEST/LUNGS: Clear to auscultation throughout all lung garcias. No wheezes, rales, or crackles. CVS: S1 and S2 are regular without obvious murmurs, gallops, or rubs. PMI is nondisplaced. No lifts, heaves, or thrills. No abdominal aortic or renal bruits. ABDOMINAL EXAM: Bowel sounds are present. Ileostomy present. Diffusely tender in the mid and lower abdomen. No guarding, rigidity, or rebound tenderness. EXTREMITIES: No clubbing or cyanosis. No edema. Intact posterior tibial and radial pulses bilaterally. Extremities are well perfused. NEUROLOGIC EXAM: Patient is awake, alert, and oriented. Pleasant and cooperative. Answers questions appropriately. Speech is clear. Principal Diagnosis Crohn's Disease Exacerbation Discharge Exam General: A&Ox3. NAD. Cooperative. HEENT: Atraumatic, normocephalic. Pulm: CTAB A&P. -wheezes, -rales, -rhonchi. Symmetrical chest rise. No increase work of breathing. No respiratory distress. Cardiac: RRR, -mrg. Radial pulses intact and symmetrical. Abdominal: soft, non-distended, ileostomy bag in place without surrounding erythema, moderately tender to palpation in left quadrants - worst in LLQ, no rebound tenderness or guarding Discharge Data Allergies Allergy/AdvReac Type Severity Reaction Status Date / Time hydromorphone Allergy Severe MUSCLE Verified 09/08/20 08:55 SHAKE ibuprofen Allergy Severe Intolerance Verified 09/08/20 08:55 to NSAIDS Sulfa (Sulfonamide Allergy Severe SKIN BURN Verified 09/08/20 08:55 Antibiotics) doxycycline AdvReac Severe DIARRHEA,UT Verified 09/08/20 08:55 I,VOMIT edetic acid AdvReac Severe HEADACHES Verified 09/08/20 08:55 rifaximin AdvReac Severe HEADACHES Verified 09/08/20 08:55 risedronate sodium AdvReac Severe SHAKY/FEVER Verified 09/08/20 08:55 /VOMITING azithromycin AdvReac DIARRHEA, Verified 09/08/20 08:55 LIVER PAIN, HEADACHE leflunomide AdvReac VASCULITIS Verified 09/08/20 08:55 methotrexate AdvReac Vomiting Verified 09/08/20 08:55 mycophenolate mofetil AdvReac Watery Eye Verified 09/08/20 08:55 [From CellCept] ondansetron [From Zofran] AdvReac Headache Verified 09/08/20 08:55 FLOURORESIN AdvReac SKIN Uncoded 09/08/20 08:55 AROUND EYES CRACK HONEY COUGH SURUP AdvReac Joint Pain Uncoded 09/08/20 08:55 Consultations 09/08/20 16:31 ED Decision to Admit Stat 09/08/20 19:34 Consult Gastroenterology Routine 09/08/20 20:30 Consult General Surgery Routine Ordered Studies 09/08/20 08:14 CT abd pelvis IV con only Stat Hospital Course (1) Crohn disease: (1) Abdominal pain: Ms. 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 Patient admits to having some level of constant abdominal pain since her last surgery on 07/05/2020, but her pain has definitely become more severe over the past 6 days. Her abdominal pain is constant, in the mid abdomen, gretel-umbilical region, and in her lower abdomen. She describes the pain as sharp and aching, and rates the pain 10/10. She has been taking her prescribed Oxycodone 10 mg t.i.d. -- which normally relieves her pain -- but this regimen has not reduced her current pain at all. She states this feels similar to the pain she had before her surgery in June 2020. Patient denies any fevers or chills. She has had some nausea but no vomiting. She denies any chest pain, chest tightness, shortness of breath, myalgias, arthralgias, headaches, body aches, or malaise. She denies any changes in her urinary patterns. She specifically denies any urinary urgency, frequency, or dysuria. Patient has a complicated surgical history and is followed by Colorectal Surgery at [facility]. Her last surgery at the end of June 2020 was due to necrotic bowel. She is having some watery output from her ileostomy, which she feels is due to flare of her Crohn's. Patient was supposed to have a sigmoidoscopy at [facility], but when she was there her rapid test came back positive for COVID-19 and they said they could not do the procedure for at least 2 weeks. She has since had 2 Negative COVID-19 test and she believes her positive test was a false positive. Nonetheless she has not been able to get a new appointment with her doctors. She her last meal was last evening at 1900. Dr. Thompson was consulted and feels that her current abdominal pain is secondary to a flare in her Crohn's Disease, not due to a bowel obstruction. -- Continue IVF's. -- Consult Gastroenterology regarding flare of Crohn's Disease. -- Monitor daily BMP, LFT's, and CBC with Diff. -- Check ESR -- Surgery consulted: no plans for acute surgery -- Continue Omeprazole 20 mg daily. -- Continue Solu-Medrol 40mg IV BID -- Transfer to [facility] (2) Crohn disease: -- As outlined above. (3) Ileostomy in place: -- Ileostomy appears to be functioning appropriately. -- Continue ostomy care. (2) Small bowel obstruction: (3) Internal hernia: Total Time Total Time Spent Total Time Spent (In Minutes): <30 minutes Discharge Plan Discharge Items Patient Disposition: Transfer Acute Care Hospital Reason For Visit: SEVERE ABDOMINAL PAIN, CROHN'S FLARE Discharge Diagnosis: Crohn's Disease Exacerbation Condition on Discharge: Good Activity: Per Instructions section Non-emergency contact: Primary Care Provider and Continuous Washer Operator Call non-emergency contact if: you have any medication questions, your symptoms worsen, your pain is not controlled and you have a fever Follow-up/Referrals: [facility] [Primary Care Provider] - Diet: Regular Addtl Attending Provider Instructions: (1) Abdominal pain: Ms. 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 Patient admits to having some level of constant abdominal pain since her last surgery on 07/05/2020, but her pain has definitely become more severe over the past 6 days. Her abdominal pain is constant, in the mid abdomen, gretel-umbilical region, and in her lower abdomen. She describes the pain as sharp and aching, and rates the pain 10/10. She has been taking her prescribed Oxycodone 10 mg t.i.d. -- which normally relieves her pain -- but this regimen has not reduced her current pain at all. She states this feels similar to the pain she had before her surgery in June 2020. Patient denies any fevers or chills. She has had some nausea but no vomiting. She denies any chest pain, chest tightness, shortness of breath, myalgias, arthralgias, headaches, body aches, or malaise. She denies any changes in her urinary patterns. She specifically denies any urinary urgency, frequency, or dysuria. Patient has a complicated surgical history and is followed by Colorectal Surgery at [facility]. Her last surgery at the end of June 2020 was due to necrotic bowel. She is having some watery output from her ileostomy, which she feels is due to flare of her Crohn's. Patient was supposed to have a sigmoidoscopy at [facility], but when she was there her rapid test came back positive for COVID-19 and they said they could not do the procedure for at least 2 weeks. She has since had 2 Negative COVID-19 test and she believes her positive test was a false positive. Nonetheless she has not been able to get a new appointment with her doctors. She her last meal was last evening at 1900. Dr. Thompson was consulted and feels that her current abdominal pain is secondary to a flare in her Crohn's Disease, not due to a bowel obstruction. -- Continue IVF's. -- Consult Gastroenterology regarding flare of Crohn's Disease. -- Monitor daily BMP, LFT's, and CBC with Diff. -- Check ESR -- Surgery consulted: no plans for acute surgery -- Continue Omeprazole 20 mg daily. -- Continue Solu-Medrol 40mg IV BID -- Transfer to [facility] (2) Crohn disease: -- As outlined above. (3) Ileostomy in place: -- Ileostomy appears to be functioning appropriately. -- Continue ostomy care. Pending Studies at Discharge: No Stand-Alone Forms: [facility] Skilled Items Patient informed of condition?: Yes DNR: No Discharge Level of Care: Other Communicable Disease: No Discharge Prognosis: Stable Lines: Peripheral IV Urinary Catheter: No Medications and DC Order Prescriptions: Continued etonogestrel-ethinyl estradiol [NuvaRing] 0.12-0.015 mg/24 hr ring 1 ea Vaginal DIRECTED RF: 0 omeprazole 20 mg capsule,delayed release(DR/EC) 20 mg PO QAM RF: 0 levothyroxine [Tirosint] 150 mcg capsule 150 mcg PO QAM RF: 0 calcium carbonate [Calcium 500] 500 mg calcium (1,250 mg) Tablet 500 mg PO BID RF: 0 fluoxetine [Prozac] 20 mg capsule 20 mg PO QAM RF: 0 ergocalciferol (vitamin D2) [Vitamin D2] 1,250 mcg (50,000 unit) capsule 50,000 unit PO .[id number] RF: 0 dicyclomine 10 mg capsule 10 mg PO QID RF: 0 cholecalciferol (vitamin D3) [Vitamin D3] 25 mcg (1,000 unit) Capsule 3,000 unit PO DAILY@1600 RF: 0 loratadine 10 mg Tablet 10 mg PO QAM RF: 0 prednisone 1 mg Tablet 9 mg PO QAM RF: 0 oxycodone 5 mg capsule 5 mg PO Q8H PRN (Reason: pain) RF: 0 Discharge Orders: Discharge Order (Routine); Ordered 09/09/20 Ordered By: Ruel Carvajal Admission Data Admit Date/Time: 09/08/20 17:28 Attending Provider: Jah Santacruz Admit Provider: Lorenzo Flores Primary Care Provider: [facility] Other Providers: Lorenzo Flores ; Josse Mills ; Alejandra Tse ; Elena Amanda ; Kevan Mcgregor ; Yohannes Thompson Other Interventions: Discharge Summary Assessment (RN) Last Done: 09/09/20 12:55 Supervising Physician Co-Signing Physician Notes I personally examined the patient and verified all puckett points of history and exam, discussed case, and agree with decision making with Dr Carvajal. symptoms tolerable. awaiting transfer to [facility]. bed available but apparently debate at [facility] on covid unit vs regular unit. infection control called me and offered to allow us to run cepheid PCR to help lay issue to rest - done. vitals noted nad fatigued appearing heent nc at mmm breathing unlabored no accessory muscles good effort skin no rashes crohn's flare/complicated IBD hx - for transfer to [facility] once available clinically does not appear c/w acute covid19, pcr negative. strongly suspect true negative. Resident Activity Tracking Resident Involvement: Resident Care Provided Care Provided: Adult Hospital Medicine
[2020-09-09] MEDS ORDERED: CHOLECALCIFEROL 1,000 UNITS 25 MCG TAB PO SCH (16:00)
--- NOTE | 2020-09-09 18:14 | Billing Data ---
Date of Service September 09, 2020 Coding Level of Care Code D/C Day Management <30 mins
[2020-09-09] MEDS: methylPREDNISolone 40 MG in SYRINGE 0 ML IV SCH (21:02)
[2020-09-10] MEDS: LEVOTHYROXINE SODIUM 150 MCG TABLET PO SCH (05:47)
[2020-09-10] MEDS: SODIUM CHLORIDE 0.9% 1000ML 1,000 ML IV SCH (05:48)
[2020-09-10 06:47] LABS: Eosinophils # (auto) 0.01 K/uL (0-0.5); Eosinophils % (auto) 0.1 %; Hematocrit (blood only) 30.8 % (37-47); Hemoglobin 9.8 g/dL (12.0-16.0); Immature Granulocytes # (auto) 0.03 K/uL (0.00-0.02); Immature Granulocytes % (auto) 0.3 %; Lymphocytes # (auto) 1.09 K/uL (1.2-3.4); Lymphocytes % (auto) 10.9 %; Mean Corpuscular Hemoglobin 26.6 pg (25-34); Mean Corpuscular Hgb Conc 31.8 g/dL (32-36); Mean Corpuscular Volume 83.5 fL (80-100); Monocytes # (auto) 0.64 K/uL (0.11-0.59); Monocytes % (auto) 6.4 %; Neutrophils % (auto) 82.3 %; Platelet Count 351 K/uL (130-400); RDW Standard Deviation 42.6 fL (36.4-46.3); Red Blood Count 3.69 M/uL (4.2-5.4); White Blood Count 9.97 K/uL (4.8-10.8)
[2020-09-10 07:19] LABS: Albumin Level 2.5 gm/dl (3.4-5.0); Bilirubin Direct 0.1 mg/dl (0-0.2); Calcium 8.3 mg/dl (8.5-10.1); Creatinine Clr Calc Pharmacy 98.8 ml/min; Est GFR (African American) 130.4; Est GFR (Non-African American) 112.5; Potassium 3.6 mmol/L (3.5-5.1)
[2020-09-10 07:22] LABS: Albumin Globulin Ratio 0.8 (0.9-2); Bilirubin,Total 0.4 mg/dl (0.2-1); Globulin 3.2 gm/dl (2.5-4.0); Total Protein 5.7 gm/dl (6.4-8.2)
[2020-09-10] MEDS: DICYCLOMINE HCL 10 MG CAP PO SCH (08:50)
[2020-09-10] MEDS: CALCIUM 600MG + VIT D 400 IU TAB PO SCH (08:50)
[2020-09-10] MEDS: LORATADINE 10 MG TAB PO SCH (08:51)
[2020-09-10] MEDS: methylPREDNISolone 40 MG in SYRINGE 0 ML IV SCH (08:51)
[2020-09-10] MEDS: FLUoxetine HCL 20 MG CAP PO SCH (08:51)
--- NOTE | 2020-09-10 18:29 | Communication Note ---
Date of Service: September 10, 2020 Transferred prior to my being able to see her. See yesterday's discharge summary for further details. No new issues appear to have come up overnight. Bed available at [facility].
[2020-09-20] MEDS ORDERED: ERGOCALCIFEROL 50,000 UNITS 1250 MCG CAP PO SCH (09:00)
== END 2020-09-10 09:00 | disposition short-term general hospital (02) | DRG 387 ==
LOC: ED 07:47 → SUATTDRO 17:28 → 3N 17:28